=== PATIENT | male | born 1955 | race Caucasian/White ===

== ENCOUNTER → 2016-07-30 | Outpatient (REF) | payer OTHER ==
[~2016-07-30] MED LIST: ATOR1TAB19 PO; AUGM875T27 PO; BACITAB3 PO; CLOP75TA2 PO; DOXY25SU PO; GLUC500T PO; LANTINJ4 SC; LEVA500T PO; LEVA750T PO; LISI10TA4 PO; MILKSUS PO; PERC5TAB6 PO; PERCOCET PO; PRIL40CA PO; SENO8.6T10 PO; SILV50CR TOP; TYLE325T5 PO; [UNRECOGNIZED DRUG - REMARK]
== END ==
LOC: M LAB REF 14:57
PROVIDERS: ATTEND Podiatrist
DX: E11.42 Type 2 diabetes mellitus with diabetic polyneuropathy (principal)

== ENCOUNTER → 2018-08-27 | Outpatient (REF) | payer OTHER, MEDICAID ==
[~2018-08-27] MED LIST changes: +AMLO10TA5 PO; -AUGM875T27 PO; +AUGM875T28 PO; +BACITAB PO; -BACITAB3 PO; +D 1010004 PO; +INSULANT SC; +LEVA1TAB2 PO; +LEVA25SO PO; -LEVA500T PO; -LEVA750T PO; +LEVA750T7 PO; +LISI-538 PO; +METF10004 PO; +METO1TAB7 PO; +MILK120011 PO; -MILKSUS PO; +PERC5TAB12 PO; -PERC5TAB6 PO; +PLAV1TAB2 PO; +RANI1SYP PO
== END ==
LOC: M LAB REF 15:50
PROVIDERS: ATTEND Podiatrist
DX: L03.119 Cellulitis of unspecified part of limb (principal)

== ENCOUNTER → 2018-08-28 | Outpatient (CLI) | payer OTHER ==
[2018-08-28 10:07] LABS: BASO % 0.3 % (0.0-1.0); EOS # 0.2 10^3/uL (0.0-0.50); EOS % 1.5 % (0.0-3.0); HEMATOCRIT 36.4 % (42.0-52.0); HEMOGLOBIN 12.5 g/dl (13.5-17.5); LYMPH # 1.4 10^3/uL (1.5-4.5); LYMPH % 12.3 % (24.0-44.0); MEAN CORPUSCULAR HEMOGLOBIN 29.8 pg (27.0-33.0); MEAN CORPUSCULAR HGB CONC 34.3 g/dl (32.0-36.5); MEAN CORPUSCULAR VOLUME 86.7 fl (80.0-96.0); MONO # 1.1 10^3/uL (0.0-0.8); MONO % 9.1 % (0.0-5.0); NEUTROPHILS # 8.7 10^3/uL (1.8-7.7); NEUTROPHILS % 75.8 % (36.0-66.0); PLATELET COUNT, AUTOMATED 511 10^3/uL (150-450); WHITE BLOOD COUNT 11.5 10^3/uL (4.0-10.0)
[2018-08-28 10:42] LABS: ALBUMIN 2.9 GM/DL (3.2-5.2); ALT/SGPT 26 U/L (12-78); BILIRUBIN,TOTAL 0.6 MG/DL (0.2-1.0); BLOOD UREA NITROGEN 12 MG/DL (7-18); CARBON DIOXIDE LEVEL 25 MEQ/L (21-32); CHLORIDE LEVEL 100 MEQ/L (98-107); GLOMERULAR FILTRATION RATE > 60.0 (>49); GLUCOSE, FASTING 101 MG/DL (70-100); POTASSIUM SERUM 4.7 MEQ/L (3.5-5.1); SODIUM LEVEL 133 MEQ/L (136-145); TOTAL PROTEIN 8.2 GM/DL (6.4-8.2)
--- NOTE | 2018-08-29 08:35 | ECGEPIP ---
Stationary ECG Study 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
== END ==
LOC: M LAB 09:22
PROVIDERS: ATTEND Podiatrist
DX: Z01.818 Encounter for other preprocedural examination (principal); M79.671 Pain in right foot

== ENCOUNTER 2018-08-29 11:07 | Day surgery (SDC) | payer OTHER ==
[~2018-08-29] VITALS: Ht 180.3 cm; Wt 102.1 kg
[2018-08-29] MEDS ORDERED: LR 1,000 ML IV ONE (11:15)
[2018-08-29] MEDS ORDERED: METOPROLOL SUCC *XL* 25MG TAB (TopROL *XL*) PO ONE (14:00)
[2018-08-29] MEDS ORDERED: TOBRAMYCIN SULF 1.2 GM VIAL As Ordered ONE (14:26)
[2018-08-29] MEDS ORDERED: BUPIVACAINE HCL 0.5% 10 ML VIAL As Ordered ONE (14:27)
[2018-08-29] MEDS ORDERED: GENTAMICIN SULF INJ 80MG/2ML VIAL (J1580) As Ordered ONE (14:27)
[2018-08-29] MEDS ORDERED: LIDOCAINE 2% MDV 20 ML VIAL As Ordered ONE (14:27)
[2018-08-29] MEDS ORDERED: MIDAZOLAM INJ 2 MG/2 ML VIAL (J2250) As Ordered ONE (14:57)
[2018-08-29] MEDS ORDERED: fentaNYL 100 MCG/2 ML INJECTION (J3010) As Ordered ONE (14:57)
[2018-08-29] MEDS ORDERED: PROPOFOL 200 MG/20 ML VIAL As Ordered ONE (14:57)
[2018-08-29] MEDS ORDERED: PERCOCET 5MG/325MG TAB PO PRN (16:00)
[2018-08-29] MEDS ORDERED: METOCLOPRAMIDE INJ 10MG/2ML VIAL (J2765) IV PRN (16:00)
[2018-08-29] MEDS ORDERED: LR 1,000 ML IV SCH (16:00)
[2018-08-29] MEDS ORDERED: fentaNYL 100 MCG/2 ML INJECTION (J3010) IV PRN (16:00)
[2018-08-29] MEDS ORDERED: AMPICILLIN SOD/SULBACTAM SOD 3 GM in D5W MINI-BAG PLUS 100 ML IV ONE (16:00)
[2018-08-29] MEDS ORDERED: ONDANSETRON 4MG/2ML VIAL (J2405) IV PRN (16:00)
[2018-08-29 17:35] VITALS: BP 194/92
[2018-08-29 17:53] VITALS: BP 173/82
[2018-08-29] MEDS ORDERED: LISINOPRIL 40 MG TAB PO ONE (18:00)
[2018-08-29] MEDS ORDERED: ACETAMINOPHEN TAB 650MG DOSE (2X325MG) PO PRN (18:00)
[2018-08-29] MEDS ORDERED: amLODIPine 10 MG TAB PO ONE (18:00)
--- NOTE | 2018-08-29 18:43 | REP ---
Right foot series: Three views obtained portably. History: Toe amputated. Comparison right foot radiographs are from January 05, 2014. Findings: The great toe has been previously amputated across the metatarsal in the interval since the 2013 study of the second digit has been amputated at the level of the distal metatarsal. There are radiopaque nodules in the adjacent soft tissues and presumably antibiotic delivery device. There is extensive erosive change and radiolucency with cortical disruption at the base of the proximal phalanx of the third toe and in the adjacent distal third metatarsal consistent with osteomyelitis. There is diffuse forefoot swelling. Vascular calcification is noted. Heel spurring is noted. There is an intramedullary irina in the distal tibia. Impression: Status post amputation of the first two digits with evidence of osteomyelitis with bone destruction in the 3rd proximal phalanx and 3rd distal metatarsal. Electronically Signed by Casey Dodge MD 08/30/2018 09:19 A
[2018-08-29 20:54] VITALS: BP 163/78
[2018-08-29] MEDS ORDERED: ATORVASTATIN 10 MG TAB PO SCH (21:00)
[2018-08-30 06:00] VITALS: BP 133/72
[2018-08-30 06:22] VITALS: BP 133/72
[2018-08-30] MEDS ORDERED: amLODIPine 10 MG TAB PO SCH (07:00)
[2018-08-30] MEDS ORDERED: CLOPIDOGREL 75 MG TAB PO ONE (07:00)
[2018-08-30] MEDS ORDERED: METOPROLOL SUCC (TopROL XL) 50MG **XL** TAB PO ONE (07:00)
[2018-08-30] MEDS ORDERED: metFORMIN (GLUCOPHAGE) 1000 MG TABLET PO ONE (07:00)
--- NOTE | 2018-09-01 16:24 | RO ---
DATE OF PROCEDURE: 08/29/2018 PREOPERATIVE DIAGNOSIS: Osteomyelitis second metatarsal right foot. POSTOPERATIVE DIAGNOSIS: Osteomyelitis second metatarsal right foot. PROCEDURE PERFORMED: Second right amputation right foot with insertion of tobramycin impregnated beads. SURGEON: Shai Cantu DPM TELEGRAPH REPEATER TECHNICIAN: None. ANESTHESIA: HEMOSTASIS: None. ESTIMATED BLOOD LOSS: Less than 10 mL. IMPLANTS UTILIZED: Eight 5 mm tobramycin impregnated beads. DRAINS UTILIZED: Half inch iodoform gauze. DESCRIPTION OF OPERATION: On 08/29/2018, this 62-year-old male was taken from his hospital room to the operating room and placed on the operating table in a supine position. Following the induction of intravenous (IV) sedation and local and regional anesthesia, the right lower extremity was prepped and draped in the usual aseptic manner. Sterile draping is completed and the following procedure was performed. SECOND RIGHT AMPUTATION RIGHT FOOT: Attention was directed to the patient's right foot where there was noted to be an ulcer on the plantar surface of the foot, which extends to bone. Review of x-rays revealed fragmentation of the bone. Therefore, the following procedure was performed the second right amputation. An incision was made on the distal end of the foot starting where a previous cicatrix was placed from the first ray amputation. This was extended onto the base of the 2nd toe in elliptical fashion and it was carried straight to bone. The toe was disarticulated and the toe was removed. Utilizing a metatarsal elevator, the metatarsal was freed. The second metatarsal was then cut just slightly longer than the first and in a dorsal distal to proximal plantar orientation and the second metatarsal head was removed and sent to mycobacteriology for aerobic and anaerobic evaluation. All bleeders as encountered were electrocoagulated. The wound was flushed with 3 liters of dilute gentamicin solution. Evaluation of the plantar surface of the ulcer revealed some necrotic tissue, which was then debrided in elliptical fashion. This was not closed to allow drainage. Eight 5 mm tobramycin beads were then placed into the wound and the wound was closed with #2-0 nylon in a simple interrupted and horizontal mattress type fashion. Half-inch iodoform gauze was placed through the plantar ulcer and a dressing was applied consisting of Adaptic, 4 x 4's, and Kerlix and ABDs. Coban was then placed over the foot. The patient having apparently tolerated the surgical procedure well was sent from the operating room (OR) to the recovery room. The patient states that it was late in the day, his is admitted in the hospital and he has no way of taking care of himself for getting home tonight. He was advised to be held for monitoring and can be released in the morning. Orders were written for his postoperative medications. His questions were answered.
== END 2018-08-30 10:00 | disposition home or self-care (01) ==
LOC: M SDC 11:07 → M MS4PR 17:30 → M SDC 08-30 10:00
PROVIDERS: ATTEND Podiatrist
DX: M86.171 Other acute osteomyelitis, right ankle and foot (principal); E11.621 Type 2 diabetes mellitus with foot ulcer; L97.512 Non-pressure chronic ulcer of other part of right foot with fat layer exposed; E11.42 Type 2 diabetes mellitus with diabetic polyneuropathy; M79.674 Pain in right toe(s); L97.212 Non-pressure chronic ulcer of right calf with fat layer exposed; L97.514 Non-pressure chronic ulcer of other part of right foot with necrosis of bone; Z79.4 Long term (current) use of insulin; Z79.84 Long term (current) use of oral hypoglycemic drugs; I10 Essential (primary) hypertension; Z79.899 Other long term (current) drug therapy; E78.5 Hyperlipidemia, unspecified; K21.9 Gastro-esophageal reflux disease without esophagitis; F17.220 Nicotine dependence, chewing tobacco, uncomplicated
CPT/HCPCS: 28820; 73630; 87070; 87075; 87186; 88304; J1580; J2250; J3010

== ENCOUNTER 2018-10-01 08:17 | Day surgery (SDC) | payer OTHER ==
[~2018-10-01] VITALS: Ht 180.3 cm; Wt 108.9 kg
[~2018-10-01 08:17] MED LIST changes: +AMPICILLIN SOD/SULBACTAM SOD 1.5 GM in D5W 50 ML IV ONE; +LR 1,000 ML IV SCH
[2018-10-01] MEDS ORDERED: PROPOFOL 200 MG/20 ML VIAL As Ordered ONE ×2 (08:48→10:49)
[2018-10-01] MEDS ORDERED: LIDOCAINE 2% INJ 100 MG/5 ML SDV (FOR ANES.) As Ordered ONE (08:48)
[2018-10-01] MEDS ORDERED: ONDANSETRON 4MG/2ML VIAL (J2405) As Ordered ONE (08:49)
[2018-10-01] MEDS ORDERED: fentaNYL 100 MCG/2 ML INJECTION (J3010) As Ordered ONE (08:49)
[2018-10-01] MEDS ORDERED: MIDAZOLAM INJ 2 MG/2 ML VIAL (J2250) As Ordered ONE (08:49)
[2018-10-01] MEDS ORDERED: KETAMINE HCL 200 MG/20 ML VIAL As Ordered ONE (08:50)
[2018-10-01 09:04] LABS: BASO % 0.6 % (0.0-1.0); EOS # 0.1 10^3/uL (0.0-0.50); EOS % 1.7 % (0.0-3.0); HEMOGLOBIN 12.6 g/dl (13.5-17.5); LYMPH # 1.3 10^3/uL (1.5-4.5); LYMPH % 18.1 % (24.0-44.0); MEAN CORPUSCULAR HEMOGLOBIN 29.5 pg (27.0-33.0); MEAN CORPUSCULAR HGB CONC 34.1 g/dl (32.0-36.5); MEAN CORPUSCULAR VOLUME 86.7 fl (80.0-96.0); MONO # 0.8 10^3/uL (0.0-0.8); MONO % 10.6 % (0.0-5.0); NEUTROPHILS # 4.9 10^3/uL (1.8-7.7); NEUTROPHILS % 68.6 % (36.0-66.0); PLATELET COUNT, AUTOMATED 256 10^3/uL (150-450); RED BLOOD COUNT 4.27 10^6/uL (4.30-6.10); WHITE BLOOD COUNT 7.2 10^3/uL (4.0-10.0)
[2018-10-01 09:17] LABS: ERYTHROCYTE SEDIMENTATION RATE 36 mm/hr (0-20)
[2018-10-01] MEDS ORDERED: GENTAMICIN SULF INJ 80MG/2ML VIAL (J1580) As Ordered ONE (09:35)
[2018-10-01] MEDS ORDERED: BUPIVACAINE HCL 0.5% 30 ML VIAL As Ordered ONE (09:36)
[2018-10-01] MEDS ORDERED: LIDOCAINE 2% MDV 20 ML VIAL As Ordered ONE (09:37)
[2018-10-01] MEDS ORDERED: TOBRAMYCIN SULF 1.2 GM VIAL As Ordered ONE (09:37)
[2018-10-01 09:38] LABS: ALBUMIN 3.9 GM/DL (3.2-5.2); ALT/SGPT 24 U/L (12-78); BILIRUBIN,TOTAL 0.9 MG/DL (0.2-1.0); BLOOD UREA NITROGEN 13 MG/DL (7-18); CALCIUM LEVEL 8.3 MG/DL (8.8-10.2); CARBON DIOXIDE LEVEL 24 MEQ/L (21-32); CHLORIDE LEVEL 96 MEQ/L (98-107); CREATININE FOR GFR 0.83 MG/DL (0.70-1.30); GLOMERULAR FILTRATION RATE > 60.0 (>49); GLUCOSE, FASTING 125 MG/DL (70-100); POTASSIUM SERUM 4.6 MEQ/L (3.5-5.1); SODIUM LEVEL 127 MEQ/L (136-145); TOTAL PROTEIN 8.3 GM/DL (6.4-8.2)
[2018-10-01 12:00] VITALS: BP 150/77
--- NOTE | 2018-10-01 12:33 | REP ---
PORTABLE RIGHT FOOT, THREE VIEWS: HISTORY: Postop. COMPARISON: 08/29/2018 The patient is status post previous amputation of the 1st and 2nd digits and heads of the 1st and 2nd metatarsals. The patient is status post new amputation of the 3rd through 5th digits and heads of the 3rd through 5th the tarsals. Radiopaque pledgets and interval tevin are present in the soft tissue. IMPRESSION: Postoperative change as described above. Electronically Signed by Dalton Torres MD 10/01/2018 12:35 P
--- NOTE | 2018-10-02 11:55 | RO ---
DATE OF PROCEDURE: 10/01/2018 PREPROCEDURE DIAGNOSIS: Osteomyelitis second metatarsal and third metatarsal phalangeal joint right foot. POSTPROCEDURE DIAGNOSIS: Osteomyelitis second metatarsal and third metatarsal phalangeal joint right foot. PROCEDURE: SURGEON: Dr. Shai Cantu DPM MACHINE SETTER SUPERVISOR: None. ANESTHESIA: Local MAC. IRRIGATION: Dilute gentamicin solution 3 liters with low pressure pulse lavage system. HEMOSTASIS: None. ESTIMATED BLOOD LOSS: 100 mL. IMPLANTS UTILIZED: Fifteen 5 mm Tobramycin impregnated beads. DRAIN: TLS drain. COMPLICATIONS: None. DESCRIPTION OF OPERATION: On 10/01/2018, this 62-year old diabetic male was taken from his hospital room to the operating room and placed on the operating table in supine position. Following induction of IV sedation, local and regional anesthesia, the right lower extremity was prepped and draped in the usual aseptic manner. Attention was directed to the patient's right foot where there was noted to be an ulceration on the plantar surface of the foot inferior to the second metatarsal as well as a ulceration with a swollen third toe. X-rays reveal osteomyelitis of the second metatarsal and third metatarsal phalangeal joint. The following procedure was performed: TRANSMETATARSAL AMPUTATION RIGHT FOOT WITH INSERTION OF TLS DRAIN AND FIFTEEN 5 MM TOBRAMYCIN IMPREGNATED BEADS: A transverse incision was then placed across the dorsal aspect of the foot across the base of the digits exiting laterally onto the fifth metatarsal area extending inferiorly at the proximal web spaces across the digits 5-3. With dorsal traction, the extensor tendons were cut with dorsal flexion. The flexor tendons were cut and the toe was disarticulated from the third, fourth and fifth metatarsal phalangeal joints. Utilizing Bovie and #3-0 Monocryl, all bleeders as encountered were electrocoagulated or ligated. Attention was directed to the second metatarsal and utilizing a power saw, an osteotomy was performed where the bone was firm, the distal necrotic bone was left and approximately 1 cm of bone was excised with care taken to take more bone on the plantar surface than the dorsal. The metatarsals were then staggered down across the third, fourth and fifth metatarsal heads. The third metatarsal head was sent to pathology for aerobic and anaerobic cultures. Utilizing Bovie, any remaining bleeders were electrocoagulated. The wound was flushed with 3 liters of dilute gentamicin solution with low pressure pulse lavage system. The plantar ulcer was fully excised submetatarsal two. Fifteen 5 mm vancomycin beads and TLS drain was then placed into the wound and the wound was stapled close in the usual fashion. Good coaptation was noted of the wound and was under minimal tension. Compressive dressing was then applied consisting of 4x4, 4x4 splint, ABD and Coban. TLS drain was functioning satisfactorily. Patient apparently having tolerated the procedure well was taken from the operating room to the recovery room for further monitoring by the anesthesia department. Patient will continue on Augmentin 875 mg one by mouth twice daily. He may start taking his Plavix in 8 hours. His questions were answered.
== END 2018-10-01 13:30 | disposition home or self-care (01) ==
LOC: M SDC 08:17
PROVIDERS: ATTEND Podiatrist
DX: M86.171 Other acute osteomyelitis, right ankle and foot (principal); E11.621 Type 2 diabetes mellitus with foot ulcer; L03.125 Acute lymphangitis of right lower limb; L97.514 Non-pressure chronic ulcer of other part of right foot with necrosis of bone; Z79.4 Long term (current) use of insulin; I10 Essential (primary) hypertension; E11.42 Type 2 diabetes mellitus with diabetic polyneuropathy; M79.674 Pain in right toe(s); Z79.899 Other long term (current) drug therapy
CPT/HCPCS: 28805; 36415; 73630; 80053; 85025; 85652; 87070; 87075; 87186; 88304; 88311; C1713; J1580; J2250; J2405; J3010

== ENCOUNTER 2019-04-01 14:57 | Inpatient (IN) | payer OTHER ==
[~2019-04-01] VITALS: Ht 180.3 cm; Wt 101.8 kg
[~2019-04-01 14:57] MED LIST changes: -AMPICILLIN SOD/SULBACTAM SOD 1.5 GM in D5W 50 ML IV ONE; -LR 1,000 ML IV SCH; -SILV50CR TOP; +THER1CRE16 TOP
[2019-04-01] MEDS ORDERED: NS 1,000 ML IV ONE ×2 (16:00→17:15)
[2019-04-01] MEDS ORDERED: PIPERACILLIN/TAZOBACTAM SOD 3.375 GM in D5W MINI-BAG PLUS 50 ML IV ONE (16:00)
[2019-04-01] MEDS ORDERED: VANCOMYCIN HCL 1,000 MG, VIAL MATE ADAPTER 1 EACH in D5W 250 ML IV ONE (16:00)
[2019-04-01 16:31] LABS: BASO % 0.2 % (0.0-1.0); EOS # 0.1 10^3/uL (0.0-0.5); EOS % 0.7 % (0.0-3.0); HEMATOCRIT 34.7 % (42.0-52.0); HEMOGLOBIN 11.8 g/dl (13.5-17.5); LYMPH # 1.2 10^3/uL (1.5-5.0); LYMPH % 10.1 % (24.0-44.0); MEAN CORPUSCULAR HEMOGLOBIN 30.2 pg (27.0-33.0); MEAN CORPUSCULAR VOLUME 88.7 fl (80.0-96.0); MONO # 0.9 10^3/uL (0.0-0.8); MONO % 7.7 % (0.0-5.0); NEUTROPHILS # 9.8 10^3/uL (1.5-8.5); NEUTROPHILS % 80.2 % (36.0-66.0); PLATELET COUNT, AUTOMATED 596 10^3/uL (150-450); RED BLOOD COUNT 3.91 10^6/uL (4.30-6.10); WHITE BLOOD COUNT 12.2 10^3/uL (4.0-10.0)
[2019-04-01] MEDS ORDERED: DEXTROSE 50% 50 ML SYRINGE IV PRN (16:45)
[2019-04-01] MEDS ORDERED: GLUCAGON FOR INJ 1 MG VIAL (J1610) SC PRN (16:45)
[2019-04-01] MEDS ORDERED: GLUCOSE 4 GM CHEW TABLET PO PRN (16:45)
[2019-04-01 16:53] LABS: ALBUMIN 2.3 GM/DL (3.2-5.2); ALT/SGPT 49 U/L (12-78); BILIRUBIN,DIRECT 0.3 MG/DL (0.0-0.2); BILIRUBIN,TOTAL 0.5 MG/DL (0.2-1.0); BLOOD UREA NITROGEN 20 MG/DL (7-18); CALCIUM LEVEL 8.7 MG/DL (8.8-10.2); CARBON DIOXIDE LEVEL 27 MEQ/L (21-32); CHLORIDE LEVEL 97 MEQ/L (98-107); GLOMERULAR FILTRATION RATE > 60.0 (>49); GLUCOSE, FASTING 165 MG/DL (70-100); POTASSIUM SERUM 4.4 MEQ/L (3.5-5.1); SODIUM LEVEL 134 MEQ/L (136-145); TOTAL PROTEIN 7.7 GM/DL (6.4-8.2)
[2019-04-01] MEDS ORDERED: ATOR1TAB21 PO (16:53)
[2019-04-01] MEDS ORDERED: METO1TAB33 PO (16:53)
[2019-04-01] MEDS ORDERED: PT COMMENT (16:55)
[2019-04-01 16:59] LABS: ERYTHROCYTE SEDIMENTATION RATE 108 mm/hr (0-20)
[2019-04-01] MEDS ORDERED: ACETAMINOPHEN TAB 650MG DOSE (2X325MG) PO ONE (17:00)
[2019-04-01] MEDS ORDERED: ACETAMINOPHEN TAB 650MG DOSE (2X325MG) PO PRN (17:15)
[2019-04-01 17:29] LABS: INR 1.23; PROTHROMBIN TIME 15.2 SECONDS (11.8-14.0)
[2019-04-01 18:18] LABS: HEMOGLOBIN A1c 7.2 %
[2019-04-01] MEDS: HumaLOG INSULIN (NovoLOG) PER UNIT SC SCH ×2 (18:18→21:00)
--- NOTE | 2019-04-01 18:27 | HPE ---
DATE OF ADMISSION: 04/01/2019 PRIMARY CARE PROVIDER: Former[facility]amed [facility] LATHE TURNER: Dr. Cantu ATTENDING PHYSICIAN: Hospitalist group HISTORY: Ayad Mccray is a 63-year-old who is being admitted after seeing Dr. Cantu today, having been found to have a deeply infected right diabetic foot with suspected osteomyelitis, foul drainage, erythema, swelling and pain in a foot that has already had forefoot amputations. His past history shows diabetes with peripheral arterial disease and diabetic neuropathy. He has hyperlipidemia, hypertensive heart disease, history of osteomyelitis of both feet. He is undergone transmetatarsal amputation to both feet in the past by Dr. Cantu. SOCIAL HISTORY: He is from [place], [place]. He was in the for 13 years. He is disabled due to his toe amputations. 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 He does not smoke. He says he previously drank about 4-6 [place] a day but has not had any alcohol in three weeks. FAMILY HISTORY: Noncontributory. REVIEW OF SYSTEMS: No fever or chills. He has a cough. It is worse when he lies down. It has been present for three weeks. It is occasionally productive. He is not short of breath with it. No chest pain. No polyuria or polydipsia. MEDICATIONS: - Lantus insulin 20 units daily - Plavix 75 mg daily - metformin 1000 mg twice a day - atorvastatin 10 mg daily - vitamin D - Toprol XL 50 mg at bedtime ALLERGIES: None known. PHYSICAL EXAMINATION: VITAL SIGNS: Per flow sheet. He is alert, conversant, in no distress. Pupils are equal, round, and reactive to light. Tympanic membranes (TMs) and oropharynx benign. NECK: No masses. No jugular venous distention (JVD). LUNGS: Scattered rhonchi, frequent cough. HEART: Regular rate and rhythm, 1/6 systolic ejection murmur. ABDOMEN: Soft, nontender. No masses. EXTREMITIES: 1+ peripheral edema. Bilateral transmetatarsal amputations. Right foot laterally has purulent drainage, foul smelling with erythema and swelling. Pulses are not palpable in what is remaining of the foot bilaterally. LABORATORY DATA: White count 12.2, hemoglobin 11.8, platelets 569. Sodium 134 potassium 4.4, BUN 20, creatinine 1.0, glucose 165. C-reactive protein 13.7. IMPRESSION: 1. Diabetic foot ulcer. The patient will be admitted to a medical bed. Consult Dr. Cantu for podiatric care. MRI of the foot has been ordered through the emergency room. We will start Zosyn and vancomycin for suspected osteomyelitis. Clinical pharmacology has been consulted. Sliding scale insulin with fingerstick blood sugar. Consistent-carbohydrate diet ordered. Hemoglobin A1c ordered. 2. Cough. We will get the chest x-ray and proceed from there. It has been present for about three weeks and not resolving. 3. Hypertensive heart disease. Continue metoprolol. Reduce the dose of amlodipine until we see what his pressures are like in the hospital. For his edema, he might benefit from a thiazide diuretic rather than a higher dose of amlodipine. 4. Peripheral arterial disease. I am holding his Plavix until we see whether he is going for surgery. 5. History of alcohol use. He claims no alcohol in the last three weeks. He has not previously had any withdrawal symptoms so I am not putting him on any kind of a withdrawal protocol. 6. Deep vein thrombosis (DVT) prophylaxis with Lovenox has been ordered.
[2019-04-01] MEDS ORDERED: PROHANCE 279.3MG/ML 5ML VIAL (A9576) As Ordered ONE (18:34)
[2019-04-01] MEDS ORDERED: PROHANCE 279.3MG/ML 15ML VIAL (A9576) As Ordered ONE (18:35)
--- NOTE | 2019-04-01 19:16 | REP ---
Right foot: Four views. History: Rule out osteo. Pain and swelling. Erythema. Comparison right foot radiographs are postoperative images from October 01, 2018. Findings: The patient is status post transmetatarsal forefoot amputation of all five digits. There is a irregular soft tissue swelling. There is fairly extensive soft tissue emphysema at the stump as well as along the lateral aspect of the midfoot, hindfoot. 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 Plantar and Achilles calcaneal spurring is noted. There is an intramedullary irina with pins in the distal tibia. Impression: Dorsal lateral subcutaneous emphysema at the level of the midfoot and hindfoot as well as in the forefoot. No acute bony erosive change. I cannot exclude gas-forming soft tissue infection. Electronically Signed by Casey Dodge MD 04/02/2019 07:52 A
[2019-04-01 20:36] VITALS: BP 132/67
--- NOTE | 2019-04-01 20:38 | PHACANCOPD ---
PHARMACY VANCOMYCIN DOSING Pt Demographics Demographics Patient Age:63 , Weight:101.800 , Gender: male Adjusted Body Weight Events Past 24 Hours Events Past 24 Hours: NO: Dialysis, Diuretic Therapy, Change in CrCl, Fever, Elevation in WBC, Pending Diagnostics, Pending Procedures, Other Vancomycin Vancomycin indication: RT FOOR SUSPECTED OSTEOMYELITIS Vancomycin Target Ranges: 10-20 mcg/ml Vancomycin Load Y/N: No Load Dose Date Time Vancomycin Load Dose: Date: Time: Vancomycin Dose Date: 04/01/19. Current Vancomycin Dose: [1GM GIVEN IN ER @16:30. CONTINUE VANCO 1GM IV Q12H STARTING @21:00] Intermittent Dosing?: No Labs Labs Laboratory Tests 04/01/19 16:01 Red Blood Count 3.91 L, Mean Corpuscular Volume 88.7, Mean Corpuscular Hemoglobin 30.2, Mean Corpuscular Hemoglobin Concent 34.0, Red Cell Distribution Width 12.1, Neutrophils (%) (Auto) 80.2 H, Lymphocytes (%) (Auto) 10.1 L, Monocytes (%) (Auto) 7.7 H, Eosinophils (%) (Auto) 0.7, Basophils (%) (Auto) 0.2, Neutrophils # (Auto) 9.8 H, Lymphocytes # (Auto) 1.2 L, Monocytes # (Auto) 0.9 H, Eosinophils # (Auto) 0.1, Basophils # (Auto) 0.0 Micro Microbiology 04/01/19 Blood Culture, Received Pending 04/01/19 Blood Culture, Received Pending 04/01/19 Anaerobic Culture, Received Pending 04/01/19 Gram Stain, Received Pending 04/01/19 Wound Culture, Received Pending Creatinine Clearance Date:04/01/19. Creatinine Clearance: [>80]. Assessment and Plan Maintaining Current Dose?: Yes Reason for dose change: No Dose Change Pharmacist Note Pharmacist Note Date: 04/01/19. PharmD note: ZOSYN 3.375GM IV Q6H INITIATED IN THE ER FOLLOWED BY 1GM VANCO x1 DOSE IV ALSO @16:30 WE WILL CONTINUE WITH VANCO 1GM IV Q12H SAS ALREADY ORDERED BY DR RANGEL AND OBTAIN A PRIMARY VANCO TROUGH WHEN HE IS AT [facility] Apr 01, 2019 20:38
[2019-04-01 22:00] VITALS: BP 135/69
[2019-04-01] MEDS: VANCOMYCIN HCL 1,000 MG, VIAL MATE ADAPTER 1 EACH in D5W 250 ML IV SCH (22:08)
--- NOTE | 2019-04-01 22:21 | REPVR ---
EXAM: MR Right Lower Extremity Without and With Contrast, Foot EXAM DATE/TIME: 04/01/2019 6:42 PM CLINICAL HISTORY: 63 years old, male; Right; Prior surgery; Surgery date: 6+ months; Patient HX: Pain and cellulitis in RT foot, PT has a HX of peripheral vascular deficit prior amputation of all toes TECHNIQUE: Imaging protocol: MR of the Right foot without and with intravenous contrast. Contrast material: PROHANCE; Contrast volume: 20 ml; Contrast route: 22G ANGIO; COMPARISON: CR - Foot, complete RIGHT 04/01/2019 4:11:53 PM FINDINGS: Redemonstrated are operative changes of transmetatarsal amputation of all the rays. There is moderate enhancing subcutaneous edema about the distal leg, ankle and remaining foot, with areas of skin thickening. An irregular shaped area of peripherally enhancing subcutaneous heterogeneous, partially fluid intensity signal along the dorsolateral aspect from the level of the cuboid through the remaining fifth metatarsal measures approximately 4.6 x 1.4 cm in the axial plane and up to 6.8 cm proximal to distal, suggestive of abscess. Multiple dark signal foci within this appear to relate to gas on the radiographs. There is also fistulization of this collection to the skin laterally at the level of the cuboid. In addition, there is irregularly-shaped peripherally enhancing fluid along the deep aspect of the extensor hallucis and digitorum longus tendons at the levels of the lateral and medial cuneiforms and proximal second through fourth metatarsals. Maximum dimensions are approximately 3.4 x 1.0 cm in the axial plane and up to 4.9 cm craniocaudad. The tendons themselves appear intact, aside from the fifth extensor digitorum longus tendon, which may have been resected. The peroneus brevis tendon is thickened and increased in signal near its insertion. The other visualized tendons appear unremarkable, as does the plantar fascia. There is considerable marrow edema involving the cuboid, lateral and middle cuneiforms and second through fifth metatarsals. The distal aspect of these tarsal bones and the entirety of the metatarsals demonstrate decreased T1 signal as well as irregular areas of cortical disruption, compatible with osteomyelitis. Some marrow edema with lesser decreased T1 signal and no definite cortical destruction in the medial cuneiform could be reactive or related to osteomyelitis. Lesser patchy marrow edema in the talus distally likely reactive. The medial cuneiform is again fused in an osseous fashion to the remaining first metatarsal. The joint spaces are normally aligned, and there are similar degenerative changes. A small effusion involves the calcaneocuboid joint. IMPRESSION: 1. Postoperative foot demonstrate moderate enhancing subcutaneous edema about the distal leg, ankle and remaining foot, with areas of skin thickening, compatible with the given history of cellulitis. 2. Irregularly-shaped peripherally enhancing subcutaneous collection along the dorsolateral aspect of the foot, suggestive of abscess. Multiple dark signal foci within this appear to relate to gas on radiographs of the same day. 3. Additional peripherally enhancing fluid along the deep aspect of the extensor hallucis and digitorum longus tendons at the levels of the lateral and medial cuneiforms and second through fourth metatarsals, could reflect abscess or tenosynovitis. 4. 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 5. Osteomyelitis involving the distal aspects of the cuboid, lateral and medial cuneiforms and second through fifth metatarsals. 6. Reactive edema or osteomyelitis involving the medial cuneiform. 7. Small effusion of the calcaneocuboid joint, with infection not excluded. Electronically signed by: Nicholas Katz On 04/01/2019 22:20:29 PM
[2019-04-01] MEDS: PIPERACILLIN/TAZOBACTAM SOD 3.375 GM in D5W MINI-BAG PLUS 50 ML IV SCH (23:43)
[2019-04-02] VITALS (8 sets, daily range): BP systolic 130–151; BP diastolic 70–79
[2019-04-02] MEDS: PIPERACILLIN/TAZOBACTAM SOD 3.375 GM in D5W MINI-BAG PLUS 50 ML IV SCH ×4 (05:56→23:51)
[2019-04-02 06:07] LABS: BASO % 0.5 % (0.0-1.0); EOS # 0.1 10^3/uL (0.0-0.5); EOS % 1.6 % (0.0-3.0); HEMATOCRIT 32.1 % (42.0-52.0); HEMOGLOBIN 10.9 g/dl (13.5-17.5); LYMPH # 1.3 10^3/uL (1.5-5.0); LYMPH % 14.5 % (24.0-44.0); MEAN CORPUSCULAR HEMOGLOBIN 30.4 pg (27.0-33.0); MEAN CORPUSCULAR VOLUME 89.4 fl (80.0-96.0); MONO # 0.8 10^3/uL (0.0-0.8); MONO % 9.5 % (0.0-5.0); NEUTROPHILS # 6.4 10^3/uL (1.5-8.5); NEUTROPHILS % 72.9 % (36.0-66.0); PLATELET COUNT, AUTOMATED 497 10^3/uL (150-450); RED BLOOD COUNT 3.59 10^6/uL (4.30-6.10); WHITE BLOOD COUNT 8.7 10^3/uL (4.0-10.0)
[2019-04-02 06:24] LABS: BLOOD UREA NITROGEN 15 MG/DL (7-18); CALCIUM LEVEL 8.6 MG/DL (8.8-10.2); CARBON DIOXIDE LEVEL 24 MEQ/L (21-32); CHLORIDE LEVEL 103 MEQ/L (98-107); CREATININE FOR GFR 0.89 MG/DL (0.70-1.30); GLOMERULAR FILTRATION RATE > 60.0 (>49); GLUCOSE, FASTING 179 MG/DL (70-100); POTASSIUM SERUM 3.6 MEQ/L (3.5-5.1); SODIUM LEVEL 136 MEQ/L (136-145)
--- NOTE | 2019-04-02 07:24 | REP ---
REASON: Cough. COMPARISON: 04/24/2015 Mild cardiomegaly may have developed since the last exam. The lung duffy are clear and unchanged. The pleural angles are again seen to be sharp. No change in the osseous structures. Mild spinal degenerative changes status quo. IMPRESSION: Possible cardiomegaly, however, it should be stated the frontal view was obtained using AP technique, which magnifies the cardiac silhouette. Electronically Signed by Sergio Sow DO 04/02/2019 03:14 P
[2019-04-02] MEDS: HumaLOG INSULIN (NovoLOG) PER UNIT SC SCH ×4 (08:37→21:00)
[2019-04-02] MEDS: LEVEMIR (INSULIN DETEMIR) 1 UNITS/0.01ML SC SCH (08:38)
[2019-04-02] MEDS: amLODIPine 5 MG TAB PO SCH (08:38)
[2019-04-02] MEDS: VANCOMYCIN HCL 1,000 MG, VIAL MATE ADAPTER 1 EACH in D5W 250 ML IV SCH ×2 (08:38→21:18)
[2019-04-02] MEDS: ENOXAPARIN 40 MG/0.4 ML SYRINGE (J1650) SC SCH (08:39)
[2019-04-02] MEDS: METOPROLOL SUCC (TopROL XL) 50MG **XL** TAB PO SCH (08:39)
[2019-04-02] MEDS: ATORVASTATIN 10 MG TAB PO SCH (08:39)
[2019-04-02] MEDS ORDERED: dexameTHASONE 4 MG/ML 1ML VIAL (J1100) As Ordered ONE (13:36)
[2019-04-02] MEDS ORDERED: BUPIVACAINE HCL 0.5% 30 ML VIAL As Ordered ONE ×2 (13:36→13:37)
[2019-04-02] MEDS ORDERED: BACITRACIN PWD 50,000 UNITS VIAL As Ordered ONE (13:36)
[2019-04-02] MEDS ORDERED: LIDOCAINE 2% MDV 20 ML VIAL As Ordered ONE (13:36)
[2019-04-02] MEDS ORDERED: NEOSPORIN GU IRRIG 20 ML VIAL As Ordered ONE (13:37)
[2019-04-02] MEDS ORDERED: GENTAMICIN SULF INJ 80MG/2ML VIAL (J1580) As Ordered ONE ×2 (13:39→19:38)
--- NOTE | 2019-04-02 13:46 | IPNPDOC ---
Text Note Date of Service The patient was seen on 04/02/19. NOTE SUBJECTIVE: Complains of right foot redness with discharge though no pain. de nies any chest pain or sob , denies any abdominal pain nausea or vomiting . Will be going to OR today. PHYSICAL EXAMINATION: VITAL SIGNS: As below GENERAL: He is alert, conversant, in no distress. HEENT: Pupils are equal, round, and reactive to light. Tympanic membranes (TMs) and oropharynx benign. NECK: No masses. No jugular venous distention (JVD). LUNGS: Scattered rhonchi, frequent cough. HEART: Regular rate and rhythm, 1/6 systolic ejection murmur. ABDOMEN: Soft, nontender. No masses. EXTREMITIES: 2+ peripheral edema. Bilateral transmetatarsal amputations. Right foot laterally has purulent drainage, foul smelling with erythema and swelling. There are maggots coming out of the opening in the stump Pulses are not palpable in what is remaining of the foot bilaterally. NEURO: No focal neuro deficits. Skin: In both the lower extremities there is lymphedematous changes in the skin with stasis dermatitis, ecxematous changes, foul smelling drainage with erythema in the right foot stump extending laterally with area of skin. LABORATORY DATA: Reviewed as below. ASSESSMENT AND PLAN: 63-year-old male with PMH of DM, PAD, Neuropathy, dyslipidemia, Hypertension and hypertensive heart disease , H/o Osteomyelitis in both foot and has bilateral transmetatarsal amputations who was admitted after seeing having been found to have a deeply infected right diabetic foot with suspected osteomyelitis, foul drainage, erythema, swelling and pain in a foot that has already had forefoot amputations. Diabetic foot ulcer with cellulitis, abscess and maggots. Possible osteomyelitis. Consulted Dr. Cantu for podiatric care. Planned for OR today MRI of the foot shows OM with cellulitis, abscess, tenosynovitis, tendinopathy. Zosyn and vancomycin Diabetes Carb consistent diet, lispro as per sliding scale Levemir in the Am. FS ac and HS. Dyslipidemia continue statin Cough. We will get the chest x-ray and proceed from there. It has been present for about three weeks and not resolving. Hypertension with Hypertensive heart disease. Continue metoprolol. amlodipine , diuretic Peripheral arterial disease. I am holding his Plavix until after surgery. History of alcohol use. He claims no alcohol in the last three weeks. He has not previously had any withdrawal symptoms so I am not putting him on any kind of a withdrawal protocol. Deep vein thrombosis (DVT) prophylaxis with Lovenox has been ordered. VS,Fishbone, I+O VS, Fishbone, I+O Laboratory Tests 04/01/19 16:01 Red Blood Count 3.91 L, Mean Corpuscular Volume 88.7, Mean Corpuscular Hemoglobin 30.2, Mean Corpuscular Hemoglobin Concent 34.0, Red Cell Distribution Width 12.1, Neutrophils (%) (Auto) 80.2 H, Lymphocytes (%) (Auto) 10.1 L, Monocytes (%) (Auto) 7.7 H, Eosinophils (%) (Auto) 0.7, Basophils (%) (Auto) 0.2, Neutrophils # (Auto) 9.8 H, Lymphocytes # (Auto) 1.2 L, Monocytes # (Auto) 0.9 H, Eosinophils # (Auto) 0.1, Basophils # (Auto) 0.0 04/02/19 05:38 Red Blood Count 3.59 L, Mean Corpuscular Volume 89.4, Mean Corpuscular Hemoglobin 30.4, Mean Corpuscular Hemoglobin Concent 34.0, Red Cell Distribution Width 12.1, Neutrophils (%) (Auto) 72.9 H, Lymphocytes (%) (Auto) 14.5 L, Monocytes (%) (Auto) 9.5 H, Eosinophils (%) (Auto) 1.6, Basophils (%) (Auto) 0.5, Neutrophils # (Auto) 6.4, Lymphocytes # (Auto) 1.3 L, Monocytes # (Auto) 0.8, Eosinophils # (Auto) 0.1, Basophils # (Auto) 0.0, Calcium Level 8.6 L Vital Signs Date Time Temp Pulse Resp B/P (MAP) Pulse Ox O2 Delivery O2 Flow Rate FiO2 04/02/19 06:00 98.1 78 18 151/79 (103) 97 04/01/19 20:16 Room Air I&O- Last 24 Hours up to 6 AM 04/02/19 06:00 Intake Total 2920 ml Output Total 500 ml Balance 2420 ml MAHESH MEDELLIN MD Apr 02, 2019 08:02
--- NOTE | 2019-04-02 13:52 | IPN ---
DATE OF VISIT: 04/02/2019 CHIEF COMPLAINT: 63-year-old male seen for evaluation of an infected wound in his right foot. The patient states that he was cutting hay back around Labor Day and he noticed that he cut or injured his right foot. Since he has neuropathy he is not exactly sure. States that it subsequently got red and swollen and he started to feel ill. He noticed the other day that there was some maggots in the wound. He called our office. Presented initially to our office but we sent him back to the hospital for admission, intravenous (IV) antibiotics, and subsequent testing. He is seen today for evaluation. PAST MEDICAL HISTORY: 1. Peripheral artery disease. 2. Diabetes mellitus. 3. Diabetic neuropathy. 4. Hyperlipidemia. 5. Hypertensive heart disease. 6. Status post transmetatarsal amputation bilateral. MEDICATIONS: - Lantus insulin 20 units daily - Plavix 75 mg daily - metformin 1000 mg twice a day - atorvastatin 10 mg daily - vitamin D - Toprol XL 50 mg at bedtime The patient's laboratory studies were reviewed. His white count 12.2, today is 8.7. His ESR yesterday was 108. C-reactive protein 13.7. MRI was reviewed revealing abscess formation along the dorsal and bilateral aspect of his right foot, questionable osteomyelitis of the cuboid. Possible osteomyelitis of the lateral medial cuneiforms. However, in light of the patient's diabetic neuropathy and surgery with transmetatarsal amputations it is difficult to assess if this is bone change with edema or diabetic reaction. The patient's pedal pulses are nonpalpable. He has considerable edema of the right lower extremity from venous insufficiency. ASSESSMENT: Abscess formation right foot. We will check in the operating room (OR) if any of this abscess penetrates the bone. We are discussing incision and drainage with pulse lavage and packing of the wound. Ordered a stat duplex scan to rule out deep venous thrombosis. Informed consent was obtained and signed by the patient. The patient is nothing by mouth after breakfast. His questions are answered. He is scheduled for surgery today in the afternoon.
--- NOTE | 2019-04-02 14:30 | REP ---
Right lower extremity Duplex Doppler venous ultrasound: Real time compression and duplex Doppler interrogation of the right lower extremity deep venous system is performed. The right common femoral, superficial femoral and popliteal veins are fully compressible with transducer pressure and demonstrate normal spontaneous and phasic flow, without evidence of deep venous thrombosis. Impression: No evidence of deep venous thrombosis of the right lower extremity femoral popliteal venous system. Electronically Signed by Braulio Gómez MD 04/02/2019 02:22 P
[2019-04-02] MEDS ORDERED: ONDANSETRON 4MG/2ML VIAL (J2405) As Ordered ONE (19:26)
[2019-04-02] MEDS ORDERED: LIDOCAINE 2% INJ 100 MG/5 ML SDV (FOR ANES.) As Ordered ONE (19:26)
[2019-04-02] MEDS ORDERED: PROPOFOL 200 MG/20 ML VIAL As Ordered ONE ×2 (19:26→19:52)
[2019-04-02] MEDS ORDERED: fentaNYL 100 MCG/2 ML INJECTION (J3010) As Ordered ONE (19:26)
[2019-04-02] MEDS ORDERED: MIDAZOLAM INJ 2 MG/2 ML VIAL (J2250) As Ordered ONE (19:51)
[2019-04-02] MEDS ORDERED: METOCLOPRAMIDE INJ 10MG/2ML VIAL (J2765) IV PRN ×2 (20:45→22:00)
[2019-04-02] MEDS: LR 1,000 ML IV SCH ×2 (20:45→21:17)
[2019-04-02] MEDS ORDERED: MEPERIDINE INJ 25 MG/ML VIAL (J2175) IV PRN ×2 (20:45→22:00)
[2019-04-02] MEDS ORDERED: fentaNYL 100 MCG/2 ML INJECTION (J3010) IV PRN ×2 (20:45→22:00)
[2019-04-02] MEDS ORDERED: ONDANSETRON 4MG/2ML VIAL (J2405) IV PRN ×2 (20:45→22:00)
[2019-04-02] MEDS ORDERED: PERCOCET 5MG/325MG TAB PO PRN ×2 (20:45→22:00)
--- NOTE | 2019-04-02 21:23 | PHACANCOPD ---
PHARMACY VANCOMYCIN DOSING Pt Demographics Demographics Patient Age:63 , Weight:101.800 , Gender: male Adjusted Body Weight Events Past 24 Hours Events Past 24 Hours: NO: Dialysis, Diuretic Therapy, Change in CrCl, Fever, Elevation in WBC, Pending Diagnostics, Pending Procedures, Other Vancomycin Vancomycin indication: RT FOOR SUSPECTED OSTEOMYELITIS Vancomycin Target Ranges: 10-20 mcg/ml Vancomycin Load Y/N: No Load Dose Date Time Vancomycin Load Dose: Date: Time: Vancomycin Dose Date: 04/02/19. Current Vancomycin Dose: [1000mg q8h] Intermittent Dosing?: No Labs Labs Item Value Date Time White Blood Count 8.7 10^3/uL 04/02/19537 Glomerular Filtration Rate > 60.0 04/02/19537 Creatinine 0.89 MG/DL 04/02/19537 Blood Urea Nitrogen 15 MG/DL 04/02/19537 Vancomycin Level Trough 9.4 UG/ML L 04/02/192024 Micro Microbiology 04/01/19 Blood Culture - Preliminary, Resulted No growth after 24 hours . All specim... 04/01/19 Blood Culture - Preliminary, Resulted No growth after 24 hours . All specim... 04/02/19 Gram Stain, Received Pending 04/02/19 Wound Culture, Received Pending 04/02/19 Anaerobic Culture, Received Pending 04/02/19 Gram Stain, Received Pending 04/02/19 Surgical Biopsy Culture, Received Pending 04/02/19 Anaerobic Culture, Received Pending 04/01/19 Anaerobic Culture, Received Pending 04/01/19 Gram Stain - Final, Resulted 04/01/19 Wound Culture, Resulted Pending Creatinine Clearance Date:04/02/19. Creatinine Clearance: [>80]. Pending Labs Trough 09-13 @1300 Assessment and Plan Maintaining Current Dose?: No Reason for dose change: Trough too low Pharmacist Note Pharmacist Note Date: 04/02/19. PharmD note: Trough of 9.4 is below target range. Dosing increased to 1000mg q8h. Will continue to monitor and make adjustments as needed. LELE TALBOT [facility]ARM[facility] Apr 02, 2019 21:22
[2019-04-02] MEDS ORDERED: LR 1,000 ML IV SCH (22:00)
[2019-04-03] VITALS (8 sets, daily range): BP systolic 123–152; BP diastolic 61–85
[2019-04-03] MEDS: PIPERACILLIN/TAZOBACTAM SOD 3.375 GM in D5W MINI-BAG PLUS 50 ML IV SCH ×3 (05:20→17:25)
[2019-04-03] MEDS: VANCOMYCIN HCL 1,000 MG, VIAL MATE ADAPTER 1 EACH in D5W 250 ML IV SCH ×3 (06:28→21:49)
--- NOTE | 2019-04-03 08:03 | REP ---
Right foot series: Three views: History: Abscess right foot, three view status post resection fifth metatarsal. Comparison study is from April 01, 2019. Findings: A the left fifth metatarsal has been resected at the mid shaft level. Previous transmetatarsal amputations have been performed of the other digits. There is soft tissue swelling and overlying dressing. There are a few bubbles of soft tissue gas in the dorsal soft tissues of the midfoot unchanged. Vascular calcification and heel spurs are again noted. There is a orthopedic pin device in the distal tibia. Electronically Signed by Casey Dodge MD 04/03/2019 09:15 A
[2019-04-03 08:14] LABS: BASO % 0.4 % (0.0-1.0); EOS # 0.2 10^3/uL (0.0-0.5); EOS % 1.6 % (0.0-3.0); HEMATOCRIT 31.2 % (42.0-52.0); HEMOGLOBIN 10.4 g/dl (13.5-17.5); LYMPH # 1.2 10^3/uL (1.5-5.0); LYMPH % 10.8 % (24.0-44.0); MEAN CORPUSCULAR HEMOGLOBIN 29.2 pg (27.0-33.0); MEAN CORPUSCULAR HGB CONC 33.3 g/dl (32.0-36.5); MEAN CORPUSCULAR VOLUME 87.6 fl (80.0-96.0); MONO # 0.7 10^3/uL (0.0-0.8); MONO % 6.8 % (0.0-5.0); NEUTROPHILS # 8.7 10^3/uL (1.5-8.5); NEUTROPHILS % 79.7 % (36.0-66.0); PLATELET COUNT, AUTOMATED 522 10^3/uL (150-450); RED BLOOD COUNT 3.56 10^6/uL (4.30-6.10)
[2019-04-03 08:28] LABS: BLOOD UREA NITROGEN 6 MG/DL (7-18); C REACTIVE PROTEIN QUANTITATIV 8.33 MG/DL (0.00-0.30); CALCIUM LEVEL 8.5 MG/DL (8.8-10.2); CARBON DIOXIDE LEVEL 25 MEQ/L (21-32); CHLORIDE LEVEL 99 MEQ/L (98-107); CREATININE FOR GFR 0.86 MG/DL (0.70-1.30); GLOMERULAR FILTRATION RATE > 60.0 (>49); GLUCOSE, FASTING 162 MG/DL (70-100); POTASSIUM SERUM 3.8 MEQ/L (3.5-5.1); SODIUM LEVEL 133 MEQ/L (136-145)
[2019-04-03] MEDS: LEVEMIR (INSULIN DETEMIR) 1 UNITS/0.01ML SC SCH (08:51)
[2019-04-03] MEDS: HumaLOG INSULIN (NovoLOG) PER UNIT SC SCH ×4 (08:51→20:34)
[2019-04-03] MEDS: ENOXAPARIN 40 MG/0.4 ML SYRINGE (J1650) SC SCH (08:51)
[2019-04-03] MEDS: METOPROLOL SUCC (TopROL XL) 50MG **XL** TAB PO SCH (08:52)
[2019-04-03] MEDS: ATORVASTATIN 10 MG TAB PO SCH (08:52)
[2019-04-03] MEDS: amLODIPine 5 MG TAB PO SCH (08:53)
[2019-04-03] MEDS ORDERED: PERCOCET 5MG/325MG TAB PO ONE (10:15)
[2019-04-03] MEDS: LACTIC ACID 12% LOTION 225 GM BTL TOP SCH ×2 (13:47→20:46)
[2019-04-04] VITALS: BP 136/70
[2019-04-04] MEDS: PIPERACILLIN/TAZOBACTAM SOD 3.375 GM in D5W MINI-BAG PLUS 50 ML IV SCH ×5 (00:22→22:07)
[2019-04-04 04:00] VITALS: BP 141/69
[2019-04-04] MEDS: VANCOMYCIN HCL 1,000 MG, VIAL MATE ADAPTER 1 EACH in D5W 250 ML IV SCH ×2 (06:15→17:48)
[2019-04-04 06:29] LABS: BASO % 0.3 % (0.0-1.0); EOS # 0.2 10^3/uL (0.0-0.5); EOS % 2.3 % (0.0-3.0); HEMATOCRIT 30.5 % (42.0-52.0); HEMOGLOBIN 10.4 g/dl (13.5-17.5); LYMPH % 12.4 % (24.0-44.0); MEAN CORPUSCULAR HEMOGLOBIN 31.2 pg (27.0-33.0); MEAN CORPUSCULAR HGB CONC 34.1 g/dl (32.0-36.5); MEAN CORPUSCULAR VOLUME 91.6 fl (80.0-96.0); MONO # 0.7 10^3/uL (0.0-0.8); MONO % 8.8 % (0.0-5.0); NEUTROPHILS # 6.1 10^3/uL (1.5-8.5); NEUTROPHILS % 75.6 % (36.0-66.0); PLATELET COUNT, AUTOMATED 424 10^3/uL (150-450); RED BLOOD COUNT 3.33 10^6/uL (4.30-6.10)
[2019-04-04 07:00] LABS: BLOOD UREA NITROGEN 12 MG/DL (7-18); CALCIUM LEVEL 8.2 MG/DL (8.8-10.2); CARBON DIOXIDE LEVEL 25 MEQ/L (21-32); CHLORIDE LEVEL 105 MEQ/L (98-107); CREATININE FOR GFR 1.07 MG/DL (0.70-1.30); GLOMERULAR FILTRATION RATE > 60.0 (>49); GLUCOSE, FASTING 243 MG/DL (70-100); POTASSIUM SERUM 3.7 MEQ/L (3.5-5.1); SODIUM LEVEL 139 MEQ/L (136-145)
[2019-04-04] MEDS: HumaLOG INSULIN (NovoLOG) PER UNIT SC SCH ×4 (07:30→21:00)
--- NOTE | 2019-04-04 08:46 | IPNPDOC ---
Text Note Date of Service The patient was seen on 04/04/19. NOTE SUBJECTIVE: Complains of constipation, No bowel movements for several days. No fever or chills, No chest pain so sob, no abdominal pain , no nausea or vomiting. Does not complain of any pain in the foot. PHYSICAL EXAMINATION: VITAL SIGNS: As below GENERAL: He is alert, conversant, in no distress. HEENT: Pupils are equal, round, and reactive to light. Tympanic membranes (TMs) and oropharynx benign. NECK: No masses. No jugular venous distention (JVD). LUNGS: Scattered rhonchi, frequent cough. HEART: Regular rate and rhythm, 1/6 systolic ejection murmur. ABDOMEN: Soft, nontender. No masses. EXTREMITIES: 2+ peripheral edema. Bilateral transmetatarsal amputations. Right foot laterally has purulent drainage, foul smelling with erythema and swelling. There are maggots coming out of the opening in the stump Pulses are not palpable in what is remaining of the foot bilaterally. NEURO: No focal neuro deficits. Skin: In both the lower extremities there is lymphedematous changes in the skin with stasis dermatitis, ecxematous changes, foul smelling drainage with erythem a in the right foot stump extending laterally with area of skin. LABORATORY DATA: Reviewed as below. ASSESSMENT AND PLAN: 63-year-old male with PMH of DM, PAD, Neuropathy, dyslipidemia, Hypertension and hypertensive heart disease , H/o Osteomyelitis in both foot and has bilateral transmetatarsal amputations who was admitted after seeing having been found to have a deeply infected right diabetic foot with suspected osteomyelitis, foul drainage, erythema, swelling and pain in a foot that has already had forefoot amputations. Diabetic foot ulcer with cellulitis, abscess and maggots and osteomyelitis. MRI of the foot shows OM with cellulitis, abscess, tenosynovitis, tendinopathy. S/p Incision and drainage on 04/02/19 Planned for secondary closure next week. Zosyn and vancomycin Wound culture growing Enterobacter cloacae Diabetes Carb consistent diet, lispro as per sliding scale Levemir in the Am. FS ac and HS. Dyslipidemia continue statin Cough. We will get the chest x-ray and proceed from there. It has been present for about three weeks and not resolving. Hypertension with Hypertensive heart disease. Continue metoprolol. amlodipine , diuretic Peripheral arterial disease. I am holding his Plavix until after surgery. History of alcohol use. He claims no alcohol in the last three weeks. He has not previously had any withdrawal symptoms so I am not putting him on any kind of a withdrawal protocol. Constipation will start bowel regimen. Deep vein thrombosis (DVT) prophylaxis with Lovenox has been ordered. VS,Fishbone, I+O VS, Fishbone, I+O Laboratory Tests 04/04/19 06:02 Red Blood Count 3.33 L, Mean Corpuscular Volume 91.6, Mean Corpuscular Hemoglobin 31.2, Mean Corpuscular Hemoglobin Concent 34.1, Red Cell Distribution Width 12.2, Neutrophils (%) (Auto) 75.6 H, Lymphocytes (%) (Auto) 12.4 L, Monocytes (%) (Auto) 8.8 H, Eosinophils (%) (Auto) 2.3, Basophils (%) (Auto) 0.3, Neutrophils # (Auto) 6.1, Lymphocytes # (Auto) 1.0 L, Monocytes # (Auto) 0.7, Eosinophils # (Auto) 0.2, Basophils # (Auto) 0.0 04/04/19 06:03 Calcium Level 8.2 L Vital Signs Date Time Temp Pulse Resp B/P (MAP) Pulse Ox O2 Delivery O2 Flow Rate FiO2 04/04/19 04:00 97.8 67 18 141/69 (93) 96 04/01/19 20:16 Room Air I&O- Last 24 Hours up to 6 AM 04/04/19 06:00 Intake Total 2220 ml Output Total 2450 ml Balance -230 ml MAHESH MEDELLIN MD Apr 04, 2019 08:42
[2019-04-04] MEDS: ATORVASTATIN 10 MG TAB PO SCH (09:20)
[2019-04-04] MEDS: ENOXAPARIN 40 MG/0.4 ML SYRINGE (J1650) SC SCH (09:22)
[2019-04-04] MEDS: METOPROLOL SUCC (TopROL XL) 50MG **XL** TAB PO SCH (09:22)
[2019-04-04] MEDS: amLODIPine 5 MG TAB PO SCH (09:22)
[2019-04-04] MEDS: MOM 30ML SUSPENSION UDC PO SCH (09:22)
[2019-04-04] MEDS: LACTIC ACID 12% LOTION 225 GM BTL TOP SCH ×2 (09:22→21:21)
[2019-04-04] MEDS: SENOKOT S TAB PO SCH ×2 (09:22→21:20)
[2019-04-04] MEDS: LEVEMIR (INSULIN DETEMIR) 1 UNITS/0.01ML SC SCH (09:23)
[2019-04-04 10:00] VITALS: BP 162/80
[2019-04-04 10:25] LABS: VANCOMYCIN LEVEL TROUGH 20.4 UG/ML (10.0-20.0)
--- NOTE | 2019-04-04 10:36 | CR ---
DATE OF CONSULTATION: 04/03/2019 CONSULTING PHYSICIAN: Dr. Cantu REASON FOR CONSULTATION: Antibiotic management for right foot abscess. CHIEF COMPLAINT: This is a 63-year-old male with a pertinent history of diabetes and transmetatarsal amputations bilaterally who presented to the emergency room (ER) two days prior for worsening right foot infection. The patient was advised by his glass products inspector, Dr. Cantu, to come to the hospital for further evaluation. He states around Labor Day weekend he was ambulating outside in the [place], and he felt a sudden sharp pain of his lateral right foot. He admits after he took off his shoe that he had worsening swelling of his right lower extremity. He admits to having a history of neuropathy in his lower extremity, but did feel sharp pain in the right foot. He noticed that the foot lesion got worse, it became erythematous and swollen. He subsequently started experiencing systemic symptoms, such as fatigue, malaise, subjective fevers, which he attributed to having possibly the flu. He did not get any antibiotics and did not have further evaluation until he saw the glass products inspector the day of presentation to the ER. While he was admitted, he was started on intravenous (IV) vancomycin and IV Zosyn. He had a right foot incision and drainage (I and D) and amputation of the 5th metatarsal done by Dr. Cantu on 04/02/2019, evening. PAST MEDICAL HISTORY: 1. Peripheral artery disease. 2. Diabetes mellitus. 3. Diabetic neuropathy. 4. Hyperlipidemia. 5. Hypertensive heart disease. PAST SURGICAL HISTORY: Status post metatarsal amputation bilaterally. SOCIAL HISTORY: The patient is from [place], [place]. He was in the for 13 years but currently disabled due to toe amputation. [place], and he is very active. 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 FAMILY HISTORY: Noncontributory. HOME MEDICATIONS: - Lantus 20 units daily - Plavix 75 mg daily - metformin 100 mg twice a day - atorvastatin 10 mg daily - vitamin D - Toprol XL 50 mg at bedtime - amlodipine 5 mg daily - metformin 1000 mg twice a day ALLERGIES: No known drug allergies. REVIEW OF SYSTEMS: Constitutional: Denies weight change. Admits to subjective fevers. No chills. Slight night sweats. Admits to fatigue and malaise. HEENT: Denies hearing changes, ear pain, nasal congestion, sinus pain, sore throat, rhinorrhea, difficulty swallowing, vision changes. Cardiovascular: Denies shortness of breath, chest pain, dyspnea on exertion. Respiratory: Denies cough, sputum production, wheezing, rhonchi or dyspnea. Gastrointestinal: Denies nausea, vomiting, diarrhea, constipation, abdominal discomfort. Musculoskeletal: Admits to right lower foot pain, worsening lower extremity edema, right worse than left. Denies back pain, neck pain. Integumentary: Admits to right lower leg erythema and tenderness. Neurologic: Denies weakness, numbness, but admits to lower extremity neuropathy. Denies dizziness. Endocrine: Denies polyuria, polydipsia. Admits to a history of diabetes, currently on insulin and rate controlled. PHYSICAL EXAMINATION: Vital signs: Temperature 99.2, pulse 72, respirations 18, blood pressure 131/69 (89), pulse oximetry 93% on room air. General: This is a very pleasant 63-year-old male laying comfortably in the bed who does not appear in acute distress. HEENT: Atraumatic, normocephalic. Pupils equal, round, and reactive. Poor dentition. No lymphadenopathy. No jugular venous distention (JVD) noted. Lungs: Clear to auscultation bilaterally. No audible wheezing, rhonchi or rales. Abdomen: Obese abdomen, slightly distended, nontender to palpation with positive bowel sounds in all four quadrants. No hepatomegaly or splenomegaly. No skin changes noted. Lower Extremities: Bilateral lymphedema noted with chronic skin changes appreciated on the shins consistent with stasis dermatitis. Right leg edema 3+, left leg edema 2+ all the way up to knees. Bilateral metatarsal amputation. Right foot lateral open wound measuring about 12.5 x 2 cm x 2 cm in depth. Right peroneal tendons can be appreciated. No purulent discharge. Tender to touch. Small superficial ulcer stage 1 appreciated near the opening of the wound measuring about 1 x 2 cm in size, foul-smelling. The wound was then re-wrapped with packing and gauze. LABORATORIES: WBC 11.0, hemoglobin 10.4, hematocrit 31.2, platelets 522, ESR 108. Chemistries: Sodium 133, potassium 3.8, chloride 99, carbon dioxide 25, anion gap 9, BUN 6, creatinine 0.86, glucose 162, A1c 7.2, CRP came down from 13.7 on admission to 8.33. Microbiology: Blood cultures times two - no growth. Wound culture of the right foot positive for Enterobacter cloacae complex and Staphylococcus species coag negative, sensitivities currently pending. Bone biopsy anaerobes pending of the 5th metatarsal. IMAGING: Right foot MRI on 04/01/2019 shows postoperative foot enhancing subcutaneous edema of the distal leg, ankle and remaining foot, area of skin thickening and compatible with history of cellulitis. Irregularly-shaped peripherally enhancing subcutaneous collection along the dorsolateral aspect of the foot suggesting abscess. Additional peripherally enhancing fluid along the deep aspect of the extensor hallucis and digitorum longus tendons at the level of the lateral and medial cuneiform and 2nd through 4th metatarsals suggestive of abscess or tenosynovitis. Peroneus longus tendinopathy nears its insertion. Osteomyelitis of the distal aspect of the cuboid lateral and medial cuneiforms 2nd through the 5th metatarsal. Reactive edema or osteomyelitis involving the medial cuneiform, small effusion of the calcaneocuboid joint with infection not excluded. ASSESSMENT AND PLAN: This is a 63-year-old male with a pertinent history of diabetes and bilateral transmetatarsal amputation who presented to the emergency room for worsening right foot pain. The patient had a deep right foot abscess and went to the operating room on 04/02/2019, evening, by Dr. Cantu. He had an incision and drainage of the lateral and dorsal right foot with debridement of the 5th metatarsal for possible osteomyelitis pending bone cultures. He is currently on IV antibiotics, vancomycin and Zosyn started on 04/01/2019. RECOMMENDATIONS: Include: Continue vancomycin and Zosyn pending the results of the bone culture and wound cultures. We will de-escalate antibiotics appropriately pending results. To help with the lower extremity edema and skin changes, recommend applying Lac-Hydrin 12% lotion bilaterally on the shins and to wrap the lower extremity with TUBIGRIP We will monitor the patient for clinical improvement. RONI
--- NOTE | 2019-04-04 11:34 | PHACANCOPD ---
PHARMACY VANCOMYCIN DOSING Pt Demographics Demographics Patient Age:63 , Weight:101.800 , Gender: male Adjusted Body Weight Events Past 24 Hours Events Past 24 Hours: YES: Change in CrCl; NO: Dialysis, Diuretic Therapy, Fever, Elevation in WBC, Pending Diagnostics, Pending Procedures, Other Vancomycin Vancomycin indication: RT FOOR SUSPECTED OSTEOMYELITIS Vancomycin Target Ranges: 10-20 mcg/ml Vancomycin Load Y/N: No Load Dose Date Time Vancomycin Load Dose: Date: Time: Vancomycin Dose Date: 04/04/19. Current Vancomycin Dose: [1g IV q12h @18] Date: 04/02/19. Current Vancomycin Dose: [1000mg q8h] Intermittent Dosing?: No Labs Labs Item Value Date Time Vancomycin Level Trough 20.4 UG/ML H 04/04/19 0603 Vancomycin Level Trough 15.4 UG/ML 04/03/19 1314 Creatinine 0.89 MG/DL 04/02/19 0538 Creatinine 0.86 MG/DL 04/03/19 0756 Creatinine 1.07 MG/DL 04/04/19 0603 White Blood Count 11.0 10^3/uL H 04/03/19 0756 White Blood Count 8.0 10^3/uL 04/04/19 0602 Micro Microbiology 04/01/19 Blood Culture - Preliminary, Resulted No Growth after 48 hours. All Specime... 04/01/19 Blood Culture - Preliminary, Resulted No Growth after 48 hours. All Specime... 04/02/19 Gram Stain - Final, Resulted 04/02/19 Wound Culture - Preliminary, Resulted Enterobacter Cloacae Complex Streptococcus Group G 04/02/19 Anaerobic Culture, Resulted Pending 04/02/19 Gram Stain - Final, Resulted 04/02/19 Surgical Biopsy Culture, Resulted Pending 04/02/19 Anaerobic Culture, Resulted Pending 04/01/19 Anaerobic Culture - Final, Complete 04/01/19 Gram Stain - Final, Resulted 04/01/19 Wound Culture - Preliminary, Resulted Enterobacter Cloacae Complex Creatinine Clearance Date:04/04/19. Creatinine Clearance: [~75 ml/min]. Date:04/02/19. Creatinine Clearance: [>80]. Assessment and Plan Maintaining Current Dose?: No Reason for dose change: Change in serum Cr, Trough too high Pharmacist Note Pharmacist Note Date: 04/04/19. Pharmacist note: SCr was acutely elevated today, repeat vancomycin trough drawn minutes before the dose was due was high at 20.4. I have reduced his dosing back to 1g IV q12h to start tonight at 18:00. I will continue to monitor renal function and make adjustments as necessary. Isma aGrvin Pharm.D. Apr 04, 2019 11:34
[2019-04-04] MEDS: SILVER SULFADIAZINE 1% CR 50 GM JAR TOP SCH ×2 (11:43→21:21)
[2019-04-04] MEDS: MORPHINE 4 MG/ML 1ML VIAL/SYRINGE (J2270) IV PRN ×2 (12:19→21:53)
[2019-04-04 14:00] VITALS: BP 139/74
[2019-04-04 18:00] VITALS: BP 166/84
[2019-04-04 22:00] VITALS: BP 161/82
[2019-04-05 02:00] VITALS: BP 158/81
[2019-04-05] MEDS: PIPERACILLIN/TAZOBACTAM SOD 3.375 GM in D5W MINI-BAG PLUS 50 ML IV SCH ×4 (04:37→22:18)
[2019-04-05] MEDS: VANCOMYCIN HCL 1,000 MG, VIAL MATE ADAPTER 1 EACH in D5W 250 ML IV SCH (05:42)
[2019-04-05 06:00] VITALS: BP 156/80
[2019-04-05 06:12] LABS: BASO % 0.3 % (0.0-1.0); EOS # 0.2 10^3/uL (0.0-0.5); EOS % 2.2 % (0.0-3.0); HEMATOCRIT 31.5 % (42.0-52.0); HEMOGLOBIN 10.4 g/dl (13.5-17.5); LYMPH # 1.2 10^3/uL (1.5-5.0); MEAN CORPUSCULAR HEMOGLOBIN 30.2 pg (27.0-33.0); MEAN CORPUSCULAR VOLUME 91.6 fl (80.0-96.0); MONO # 0.7 10^3/uL (0.0-0.8); NEUTROPHILS # 7.2 10^3/uL (1.5-8.5); NEUTROPHILS % 76.9 % (36.0-66.0); PLATELET COUNT, AUTOMATED 481 10^3/uL (150-450); RED BLOOD COUNT 3.44 10^6/uL (4.30-6.10); WHITE BLOOD COUNT 9.4 10^3/uL (4.0-10.0)
[2019-04-05 06:29] LABS: CALCIUM LEVEL 8.6 MG/DL (8.8-10.2); CREATININE FOR GFR 1.3 MG/DL (0.70-1.30); GLOMERULAR FILTRATION RATE 59.4 (>49); POTASSIUM SERUM 3.9 MEQ/L (3.5-5.1)
[2019-04-05] MEDS: HumaLOG INSULIN (NovoLOG) PER UNIT SC SCH ×4 (07:30→20:32)
[2019-04-05] MEDS: MOM 30ML SUSPENSION UDC PO SCH (09:38)
[2019-04-05] MEDS: CLOPIDOGREL 75 MG TAB PO SCH (09:39)
[2019-04-05] MEDS: SENOKOT S TAB PO SCH ×2 (09:40→20:33)
[2019-04-05] MEDS: amLODIPine 5 MG TAB PO SCH (09:41)
[2019-04-05] MEDS: METOPROLOL SUCC (TopROL XL) 50MG **XL** TAB PO SCH (09:41)
[2019-04-05] MEDS: LEVEMIR (INSULIN DETEMIR) 1 UNITS/0.01ML SC SCH (09:42)
[2019-04-05] MEDS: ENOXAPARIN 40 MG/0.4 ML SYRINGE (J1650) SC SCH (09:42)
[2019-04-05] MEDS: SILVER SULFADIAZINE 1% CR 50 GM JAR TOP SCH ×2 (09:43→22:02)
[2019-04-05] MEDS: LACTIC ACID 12% LOTION 225 GM BTL TOP SCH ×2 (09:43→22:02)
[2019-04-05] MEDS: ATORVASTATIN 10 MG TAB PO SCH (09:45)
[2019-04-05 10:00] VITALS: BP 164/82
[2019-04-05] MEDS ORDERED: MAGNESIUM CITRATE 300 ML BTL PO ONE (10:30)
[2019-04-05] MEDS: MORPHINE 4 MG/ML 1ML VIAL/SYRINGE (J2270) IV PRN (11:40)
[2019-04-05 14:00] VITALS: BP 145/84
[2019-04-05 20:11] VITALS: BP 154/76
[2019-04-06] VITALS (8 sets, daily range): BP systolic 132–164; BP diastolic 67–85
[2019-04-06] MEDS ORDERED: VANCOMYCIN HCL 1,000 MG, VIAL MATE ADAPTER 1 EACH in D5W 250 ML IV SCH ×3
[2019-04-06] MEDS: PIPERACILLIN/TAZOBACTAM SOD 3.375 GM in D5W MINI-BAG PLUS 50 ML IV SCH ×4 (05:53→22:04)
[2019-04-06 06:31] LABS: BASO # 0.1 10^3/uL (0.0-0.2); BASO % 0.7 % (0.0-1.0); EOS # 0.2 10^3/uL (0.0-0.5); EOS % 2.9 % (0.0-3.0); HEMATOCRIT 30.5 % (42.0-52.0); HEMOGLOBIN 10.2 g/dl (13.5-17.5); LYMPH # 1.5 10^3/uL (1.5-5.0); LYMPH % 19.2 % (24.0-44.0); MEAN CORPUSCULAR HGB CONC 33.4 g/dl (32.0-36.5); MEAN CORPUSCULAR VOLUME 89.7 fl (80.0-96.0); MONO # 0.6 10^3/uL (0.0-0.8); MONO % 8.1 % (0.0-5.0); NEUTROPHILS # 5.3 10^3/uL (1.5-8.5); NEUTROPHILS % 68.6 % (36.0-66.0); PLATELET COUNT, AUTOMATED 496 10^3/uL (150-450); WHITE BLOOD COUNT 7.7 10^3/uL (4.0-10.0)
[2019-04-06 06:57] LABS: CALCIUM LEVEL 8.8 MG/DL (8.8-10.2); CREATININE FOR GFR 1.29 MG/DL (0.70-1.30); GLOMERULAR FILTRATION RATE 59.9 (>49); POTASSIUM SERUM 3.8 MEQ/L (3.5-5.1)
--- NOTE | 2019-04-06 07:19 | RO ---
DATE OF PROCEDURE: 04/02/2019 PREPROCEDURE DIAGNOSES: Abscess formation dorsal and lateral space right foot, possible osteomyelitis. POSTPROCEDURE DIAGNOSES: Abscess dorsal, lateral plantar space right foot with osteomyelitis distal aspect fifth metatarsal right foot. PROCEDURE: 1. resection of osteomyelitic bone 5th metatarsal right foot. 2. Incision and drainage of dorsal medial and plantar abscess right foot. SURGEON: Dr. Shai Cantu DPM PROJECT MANAGER ENTERTAINMENT AND MEDIA: None. ANESTHESIA: Local MAC. IRRIGATION: Dilute gentamicin solution 3 liters low pressure pulse lavage systems. DRAINS: 0.5 inch iodoform gauze. ESTIMATED BLOOD LOSS: 30 mL. HEMOSTASIS: None. IMPLANTABLES: None. DESCRIPTION OF OPERATION: On 04/02/2019, this 63-year old male was taken from his hospital room to the operating room and placed on the operating table in supine position. Following induction of IV sedation, local and regional anesthesia, the right lower extremity was prepped and draped in the usual aseptic manner. Attention was directed to the patient's right foot where there was noted to be three small but deep ulcerations on the dorsal, plantar and lateral aspects of the foot. There was noted to be maggots coming from the wound itself. The dorsal plantar ulceration was open from dorsal to plantar with a 6 cm incision. The fifth metatarsal distally was noted to be exposed and had some osseous loss consistent with osteomyelitis. Along a dorsal and lateral position towards the fifth metatarsal insertion of the peroneal brevis tendon was a tunnel which was open from dorsal to plantar measuring 12 cm in length exposing the distal 4 cm of the peroneal brevis tendon, however did not tunnel completely up the sheath in a more dorsal position than where the incision was ended. The area was then debrided of any necrotic tissue and utilizing a pulse lavage system, the maggots as well as purulent material was irrigated prior to this. Aerobic and anaerobic cultures were obtained. Approximately 1 cm of bone was resected from the fifth metatarsal and sent for bone culture aerobic and anaerobically. Then the wound was copiously lavaged. All bleeders as encountered were electrocoagulated. 0.5 inch iodoform gauze was then packed in the wound. A flap of tissue was then gently held shut and then a semicompressive dressing was applied consisting of 4x4, ABD and Kerlix. Patient apparently having tolerated the procedure well was taken from the operating room to the recovery room for further monitoring by the anesthesia department. Patient will stay on antibiotics until his culture becomes available. He is presently on Zosyn and vancomycin. Dr. Egan was consulted to follow the patient. I did discuss with Dr. Egan I would be leaving [facility] over the weekend but will be returning on Saturday morning. RONI
[2019-04-06] MEDS: HumaLOG INSULIN (NovoLOG) PER UNIT SC SCH ×4 (07:30→21:00)
[2019-04-06] MEDS: MOM 30ML SUSPENSION UDC PO SCH (09:00)
[2019-04-06] MEDS: SENOKOT S TAB PO SCH ×2 (09:00→22:04)
[2019-04-06] MEDS: ATORVASTATIN 10 MG TAB PO SCH (09:02)
[2019-04-06] MEDS: amLODIPine 5 MG TAB PO SCH (09:02)
[2019-04-06] MEDS: METOPROLOL SUCC (TopROL XL) 50MG **XL** TAB PO SCH (09:02)
[2019-04-06] MEDS: LACTIC ACID 12% LOTION 225 GM BTL TOP SCH ×2 (09:03→22:04)
[2019-04-06] MEDS: SILVER SULFADIAZINE 1% CR 50 GM JAR TOP SCH (09:03)
--- NOTE | 2019-04-06 13:31 | IPNPDOC ---
Text Note Date of Service The patient was seen on 04/06/19. NOTE SUBJECTIVE: complains of pain in foot only on bearing weight otherwise nopain. No chest pain so sob, no abdominal pain , no nausea or vomiting. Does not complain of any pain in the foot. PHYSICAL EXAMINATION: VITAL SIGNS: As below GENERAL: He is alert, conversant, in no distress. HEENT: Pupils are equal, round, and reactive to light. Tympanic membranes (TMs) and oropharynx benign. NECK: No masses. No jugular venous distention (JVD). LUNGS: Scattered rhonchi, frequent cough. HEART: Regular rate and rhythm, 1/6 systolic ejection murmur. ABDOMEN: Soft, nontender. No masses. EXTREMITIES: 2+ peripheral edema. Bilateral transmetatarsal amputations. Right foot laterally has purulent drainage, foul smelling with erythema and swelling. There are maggots coming out of the opening in the stump Pulses are not palpable in what is remaining of the foot bilaterally. NEURO: No focal neuro deficits. Skin: In both the lower extremities there is lymphedematous changes in the skin with stasis dermatitis, ecxematous changes, foul smelling drainage with erythema in the right foot stump extending laterally with area of skin. LABORATORY DATA: Reviewed as below. ASSESSMENT AND PLAN: 63-year-old male with PMH of DM, PAD, Neuropathy, dyslipidemia, Hypertension and hypertensive heart disease , H/o Osteomyelitis in both foot and has bilateral transmetatarsal amputations who was admitted after seeing having been found to have a deeply infected right diabetic foot with suspected osteomyelitis, foul drainage, erythema, swelling and pain in a foot that has already had forefoot amputations. Diabetic foot ulcer with cellulitis, abscess and maggots and osteomyelitis. MRI of the foot shows OM with cellulitis, abscess, tenosynovitis, tendinopathy. S/p Incision and drainage on 04/02/19 Planned for secondary closure today Zosyn and vancomycin Wound culture with multiple organisms and anareobic cocci Follow ID recommendations. Diabetes Carb consistent diet, lispro as per sliding scale Levemir in the Am. FS ac and HS. Dyslipidemia continue statin Cough. We will get the chest x-ray and proceed from there. It has been present for about three weeks and not resolving. Hypertension with Hypertensive heart disease. Continue metoprolol. amlodipine , diuretic Peripheral arterial disease. on plavix. History of alcohol use. He claims no alcohol in the last three weeks. He has not previously had any withdrawal symptoms so I am not putting him on any kind of a withdrawal protocol. Chronic Constipation will start bowel regimen. Deep vein thrombosis (DVT) prophylaxis with Lovenox has been ordered. VS,Fishbone, I+O VS, Fishbone, I+O Laboratory Tests 04/06/19 06:06 Red Blood Count 3.40 L, Mean Corpuscular Volume 89.7, Mean Corpuscular Hemoglobin 30.0, Mean Corpuscular Hemoglobin Concent 33.4, Red Cell Distribution Width 12.3, Neutrophils (%) (Auto) 68.6 H, Lymphocytes (%) (Auto) 19.2 L, Monocytes (%) (Auto) 8.1 H, Eosinophils (%) (Auto) 2.9, Basophils (%) (Auto) 0.7, Neutrophils # (Auto) 5.3, Lymphocytes # (Auto) 1.5, Monocytes # (Auto) 0.6, Eosinophils # (Auto) 0.2, Basophils # (Auto) 0.1, Calcium Level 8.8 Vital Signs Date Time Temp Pulse Resp B/P (MAP) Pulse Ox O2 Delivery O2 Flow Rate FiO2 04/06/19 10:00 97.4 72 20 143/70 (94) 96 04/01/19 20:16 Room Air I&O- Last 24 Hours up to 6 AM 04/06/19 06:00 Intake Total 4481 ml Output Total 4825 ml Balance -344 ml MAHESH MEDELLIN MD Apr 06, 2019 13:29
--- NOTE | 2019-04-06 13:32 | IPNPDOC ---
Text Note Date of Service The patient was seen on 04/05/19. NOTE SUBJECTIVE: Complains of constipation, No bowel movements for several days. is on bowel regimen. No fever or chills, No chest pain so sob, no abdominal pain , no nausea or vomiting. Does not complain of any pain in the foot except during dressing changes. PHYSICAL EXAMINATION: VITAL SIGNS: As below GENERAL: He is alert, conversant, in no distress. HEENT: Pupils are equal, round, and reactive to light. Tympanic membranes (TMs) and oropharynx benign. NECK: No masses. No jugular venous distention (JVD). LUNGS: Scattered rhonchi, frequent cough. HEART: Regular rate and rhythm, 1/6 systolic ejection murmur. ABDOMEN: Soft, nontender. No masses. EXTREMITIES: 2+ peripheral edema. Bilateral transmetatarsal amputations. Right foot laterally has purulent drainage, foul smelling with erythema and swelling. There are maggots coming out of the opening in the stump Pulses are not palpable in what is remaining of the foot bilaterally. NEURO: No focal neuro deficits. Skin: In both the lower extremities there is lymphedematous changes in the skin with stasis dermatitis, ecxematous changes, foul smelling drainage with erythema in the right foot stump extending laterally with area of skin. LABORATORY DATA: Reviewed as below. ASSESSMENT AND PLAN: 63-year-old male with PMH of DM, PAD, Neuropathy, dyslipidemia, Hypertension and hypertensive heart disease , H/o Osteomyelitis in both foot and has bilateral transmetatarsal amputations who was admitted after seeing having been found to have a deeply infected right diabetic foot with suspected osteomyelitis, foul drainage, erythema, swelling and pain in a foot that has already had forefoot amputations. Diabetic foot ulcer with cellulitis, abscess and maggots and osteomyelitis. MRI of the foot shows OM with cellulitis, abscess, tenosynovitis, tendinopathy. S/p Incision and drainage on 04/02/19. He had an incision and drainage of the lateral and dorsal right foot with rese ction of the 5th metatarsal. He had resection of the 5th metatarsal for possible osteomyelitis pending bone cultures. Planned for secondary closure next week. Continue Zosyn and vancomycin Wound culture growing Enterobacter cloacae and strep agalactiae, anaerobic cultures and bone cultures pending. Diabetes with neuropathy. Carb consistent diet, lispro as per sliding scale Levemir in the Am. FS ac and HS. Sugars acceptable control. Dyslipidemia continue statin Hypertension with Hypertensive heart disease. Continue metoprolol. amlodipine , diuretic Peripheral arterial disease. continue plavix. History of alcohol use. He claims no alcohol in the last three weeks. He has not previously had any withdrawal symptoms so I am not putting him on any kind of a withdrawal protocol. Constipation will start bowel regimen. Deep vein thrombosis (DVT) prophylaxis with Lovenox has been ordered. VS,Fishbone, I+O VS, Fishbone, I+O Laboratory Tests 04/05/19 05:38 Red Blood Count 3.44 L, Mean Corpuscular Volume 91.6, Mean Corpuscular Hemoglobin 30.2, Mean Corpuscular Hemoglobin Concent 33.0, Red Cell Distribution Width 12.3, Neutrophils (%) (Auto) 76.9 H, Lymphocytes (%) (Auto) 13.0 L, Monocytes (%) (Auto) 7.0 H, Eosinophils (%) (Auto) 2.2, Basophils (%) (Auto) 0.3, Neutrophils # (Auto) 7.2, Lymphocytes # (Auto) 1.2 L, Monocytes # (Auto) 0.7, Eosinophils # (Auto) 0.2, Basophils # (Auto) 0.0, Calcium Level 8.6 L Vital Signs Date Time Temp Pulse Resp B/P (MAP) Pulse Ox O2 Delivery O2 Flow Rate FiO2 04/05/19 06:00 97.9 72 20 156/80 (105) 98 04/01/19 20:16 Room Air I&O- Last 24 Hours up to 6 AM 04/05/19 06:00 Intake Total 5630 ml Output Total 6550 ml Balance -920 ml MAHESH MEDELLIN MD Apr 05, 2019 07:07
[2019-04-06] MEDS ORDERED: BUPIVACAINE HCL 0.5% 30 ML VIAL As Ordered ONE (18:58)
[2019-04-06] MEDS ORDERED: dexameTHASONE 4 MG/ML 1ML VIAL (J1100) As Ordered ONE ×2 (18:58→20:00)
[2019-04-06] MEDS ORDERED: BACITRACIN PWD 50,000 UNITS VIAL As Ordered ONE (18:58)
[2019-04-06] MEDS ORDERED: LIDOCAINE 2% MDV 20 ML VIAL As Ordered ONE (18:58)
[2019-04-06] MEDS ORDERED: NEOSPORIN GU IRRIG 20 ML VIAL As Ordered ONE (18:59)
[2019-04-06] MEDS ORDERED: GENTAMICIN SULF INJ 80MG/2ML VIAL (J1580) As Ordered ONE (19:00)
[2019-04-06] MEDS ORDERED: TOBRAMYCIN SULF 1.2 GM VIAL As Ordered ONE ×2 (19:00→19:47)
[2019-04-06] MEDS ORDERED: VANCOMYCIN HCL 500 MG/10 ML VIAL (J3370) As Ordered ONE (19:46)
[2019-04-06] MEDS ORDERED: LIDOCAINE 2% INJ 100 MG/5 ML SDV (FOR ANES.) As Ordered ONE (20:00)
[2019-04-06] MEDS ORDERED: MIDAZOLAM INJ 2 MG/2 ML VIAL (J2250) As Ordered ONE (20:00)
[2019-04-06] MEDS ORDERED: fentaNYL 100 MCG/2 ML INJECTION (J3010) As Ordered ONE (20:00)
[2019-04-06] MEDS ORDERED: PROPOFOL 200 MG/20 ML VIAL As Ordered ONE (20:00)
[2019-04-06] MEDS ORDERED: ONDANSETRON 4MG/2ML VIAL (J2405) As Ordered ONE (20:01)
[2019-04-06] MEDS ORDERED: LR 1,000 ML IV SCH (20:45)
[2019-04-06] MEDS ORDERED: PERCOCET 5MG/325MG TAB PO PRN (20:45)
[2019-04-06] MEDS ORDERED: ONDANSETRON 4MG/2ML VIAL (J2405) IV PRN (20:45)
[2019-04-07 00:42] VITALS: BP 155/77
[2019-04-07 01:30] VITALS: BP 157/78
[2019-04-07 02:51] VITALS: BP 142/73
[2019-04-07] MEDS: PIPERACILLIN/TAZOBACTAM SOD 3.375 GM in D5W MINI-BAG PLUS 50 ML IV SCH ×4 (04:19→23:37)
[2019-04-07 06:34] LABS: EOS % 0.2 % (0.0-3.0); HEMATOCRIT 33.2 % (42.0-52.0); LYMPH # 0.6 10^3/uL (1.5-5.0); LYMPH % 9.6 % (24.0-44.0); MEAN CORPUSCULAR HEMOGLOBIN 30.4 pg (27.0-33.0); MEAN CORPUSCULAR HGB CONC 33.1 g/dl (32.0-36.5); MEAN CORPUSCULAR VOLUME 91.7 fl (80.0-96.0); MONO # 0.1 10^3/uL (0.0-0.8); MONO % 1.6 % (0.0-5.0); NEUTROPHILS # 5.5 10^3/uL (1.5-8.5); NEUTROPHILS % 88.1 % (36.0-66.0); PLATELET COUNT, AUTOMATED 521 10^3/uL (150-450); RED BLOOD COUNT 3.62 10^6/uL (4.30-6.10); WHITE BLOOD COUNT 6.2 10^3/uL (4.0-10.0)
[2019-04-07 06:54] LABS: CALCIUM LEVEL 9.2 MG/DL (8.8-10.2); CREATININE FOR GFR 1.39 MG/DL (0.70-1.30); GLOMERULAR FILTRATION RATE 54.9 (>49); POTASSIUM SERUM 4.2 MEQ/L (3.5-5.1)
[2019-04-07 07:09] VITALS: BP_SYST 143; BP_SYST 145; BP_DIAS 72; BP_DIAS 74
--- NOTE | 2019-04-07 07:47 | IPN ---
DATE: 04/06/2019 Mr. Mccray has no complaints today. He is going to the operating room later tonight with Dr. Cantu for a wound closure. He has had no fever or chills. No nausea, vomiting or diarrhea. No abdominal pain. The patient states he does not think he can do home IV antibiotics, he has never done and he used to take care of his . LABORATORY DATA: White count is 7.7, hemoglobin 10.2, hematocrit 30.5, platelets 496, 68% neutrophils, 19% lymphocytes, 8% monocytes. Sodium 141, potassium 3.8, chloride 104, bicarb 29, BUN 11, creatinine 1.29, glucose 113, calcium 8.8. Wound culture Proteus mirabilis, Enterobacter aeruginosa, Enterobacter cloacae, strep paralysis, Staphylococcus simulans and anaerobic cocci. PHYSICAL EXAMINATION: Bilateral transmetatarsal amputations right foot with an open wound extending all along the lateral aspect of the foot with exposed fascia and tendon. There is some serosanguineous discharge on the dressing but no purulence, no tenderness. IMPRESSION: Complicated skin and soft tissue infection with deep tissue abscess and concern for osteomyelitis of the fifth metatarsal. Intraoperatively it was consistent with osteomyelitis. Osteomyelitis of the fifth metatarsal with deep tissue abscess, polymicrobial infection, maggots infestation. The patient is not a good candidate for home IV antibiotics. He is going back for wound closure tomorrow. Next, insulin-dependent diabetes with fairly controlled HbA1c. The patient's most recent HbA1c was 7.2. PLAN: Discontinue IV vancomycin. There is no methicillin-resistant Staphylococcus aureus (MRSA). Continue with IV Zosyn. Would suggest continuing IV antibiotics for another 2-3 days postoperatively. The patient is a very high risk of [place] taking care of his who is wheelchair dependent. After once the wound looks improved and healing could switch later to by mouth Cefdinir that should cover the majority of those pathogens. Continue IV Zosyn. Discontinue IV vancomycin.
[2019-04-07] MEDS: HumaLOG INSULIN (NovoLOG) PER UNIT SC SCH ×4 (07:58→20:39)
[2019-04-07] MEDS: ATORVASTATIN 10 MG TAB PO SCH (07:59)
[2019-04-07] MEDS: amLODIPine 5 MG TAB PO SCH (07:59)
[2019-04-07] MEDS: METOPROLOL SUCC (TopROL XL) 50MG **XL** TAB PO SCH (07:59)
[2019-04-07] MEDS: SENOKOT S TAB PO SCH ×2 (07:59→20:39)
[2019-04-07] MEDS: LACTIC ACID 12% LOTION 225 GM BTL TOP SCH ×2 (08:00→20:40)
[2019-04-07] MEDS: MOM 30ML SUSPENSION UDC PO SCH (08:00)
[2019-04-07] MEDS: ENOXAPARIN 40 MG/0.4 ML SYRINGE (J1650) SC SCH (09:14)
[2019-04-07] MEDS: CLOPIDOGREL 75 MG TAB PO SCH (09:14)
[2019-04-07] MEDS: LEVEMIR (INSULIN DETEMIR) 1 UNITS/0.01ML SC SCH (09:14)
--- NOTE | 2019-04-07 11:59 | IPNPDOC ---
Subjective Date Seen The patient was seen on 04/07/19. Subjective Chief Complaint/HPI Patient comfortable, in no apparent distress. Offers no new complaints General: Denies: ROS Unobtainable, Chills, Night Sweats, Fatigue, Malaise, Normal Appetite, Other Symptoms Skin: Denies: Rash, Lesions, Jaundice, Bruising, Itching, Dry, Breakdown, Nail Changes, Other Pulmonary: Denies: Dyspnea, Cough, Pleuritic Chest Pain, Other Symptoms Cardiovascular: Denies: Chest Pain, Palpitations, Orthopnea, Paroxysmal Noc. Dyspnea, Edema, Lt Headedness, Other Symptoms Gastrointestinal: Denies: Nausea, Vomiting, Abdominal Pain, Diarrhea, Constipation, Melena, Hematochezia, Other Symptoms Musculoskeletal: Denies: Neck Pain, Back Pain, Shoulder Pain, Arm Pain, Hand Pain, Leg Pain, Foot Pain, Joint Pain, Muscle Pain, Spasms, Other Symptoms Neurological: Denies: Weakness, Numbness, Incoordination, Change in speech, Confusion, Seizures, Other Symptoms Objective Physical Examination ENT Exam: Negative: Atraumatic, Mucous membr. moist/pink, Pharynx Normal, Tongue Midline, Pharyngeal Edema, Nares Patent, Tympanic Membranes Normal, Ext Auditory Canal Nml, Pinna Normal, Other ENT Chest Exam: Negative: Clear to auscultation, Normal air movement, Rales, Rhonchi, Wheezing, Diminished, Other Heart Exam: Negative: Rate Normal, Tachycardic, Bradycardic, Regular Rhythm, Irregular Rhythm, Normal S1, Normal S2, Gallops, Murmurs, Rubs, Other Abdomen Exam: Negative: Normal bowel sounds, BS Hyperactive, BS Hypoactive, Soft, Tenderness, Hepatospenomegaly, Mass, Hernia, Other Male Exam: Negative: Normal Genital Exam, Lesions, Edema, Erythema, Tenderness, Discharge, Mass, Hernia, Normal Prostate, Normal Sphincter Tone Skin Exam: Negative: Nl turgor and temperature, Rash, Breakdown, Lesion, Pruritus, Other skin issue Neuro Exam: Negative: Normal Gait, Normal Speech, Strength at 5/5 X4 ext, Normal Tone, Sensation Intact, Cranial Nerves 3-12 NL, Reflexes 2+, Other Assessment /Plan Problems (1) Diabetic foot infection Status: Acute Problem Text: Diabetic foot ulcer with cellulitis, abscess and maggots and osteomyelitis. MRI of the foot shows OM with cellulitis, abscess, tenosynovitis, tendinopathy. S/p Incision and drainage on 04/02/19. He had an incision and drainage of the lateral and dorsal right foot with res ection of the 5th metatarsal. He had resection of the 5th metatarsal for possible osteomyelitis Wound culture growing Enterobacter cloacae and strep agalactiae, anaerobic cultures Discontinue IV Vanco is no evidence of MRSA Continue with IV Zosyn. IV antibiotics for 2-3 more days Will switch to Cefdinir on discharge (2) HTN (hypertension) Status: Chronic Problem Text: Hypertension with Hypertensive heart disease. Continue metoprolol. amlodipine , diuretic (3) Diabetes Status: Chronic Problem Text: Diabetes with neuropathy. Carb consistent diet, lispro as per sliding scale Levemir in the Am. FS ac and HS. Sugars acceptable control. (4) HLD (hyperlipidemia) Status: Chronic Problem Text: Dyslipidemia continue statin (5) Osteomyelitis Onset Date: 01/27/2014 Status: Acute Plan/VTE VTE Prophylaxis Ordered?: Yes VS, I&O, [facility] Vital Signs/I&O Vital Signs Date Time Temp Pulse Resp B/P (MAP) Pulse Ox O2 Delivery O2 Flow Rate FiO2 04/07/19 07:59 86 143/74 04/07/19 07:09 97.8 18 98 04/01/19 20:16 Room Air I&O- Last 24 Hours up to 6 AM 04/07/19 06:00 Intake Total 2830 ml Output Total 3005 ml Balance -175 ml Laboratory Data 24H LABS Laboratory Tests 2 04/06/19 17:08: Bedside Glucose (Misc Panel) 111 04/06/19 20:57: Bedside Glucose (Misc Panel) 140H 04/07/19 05:53: Immature Granulocyte % (Auto) 0.5, White Blood Count 6.2, Red Blood Count 3.62L, Hemoglobin 11.0L, Hematocrit 33.2L, Mean Corpuscular Volume 91.7, Mean Corpuscular Hemoglobin 30.4, Mean Corpuscular Hemoglobin Concent 33.1, Red Cell Distribution Width 12.0, Platelet Count 521H, Neutrophils (%) (Auto) 88.1H, Lymphocytes (%) (Auto) 9.6L, Monocytes (%) (Auto) 1.6, Eosinophils (%) (Auto) 0.2, Basophils (%) (Auto) 0.0, Neutrophils # (Auto) 5.5, Lymphocytes # (Auto) 0.6L, Monocytes # (Auto) 0.1, Eosinophils # (Auto) 0.0, Basophils # (Auto) 0.0, Nucleated Red Blood Cells % (auto) 0.0, Anion Gap 9, Glomerular Filtration Rate 54.9, Blood Urea Nitrogen 16, Creatinine 1.39H, Sodium Level 135L, Potassium Level 4.2, Chloride Level 99, Carbon Dioxide Level 27, Calcium Level 9.2 04/07/19 11:10: Bedside Glucose (Misc Panel) 368H CBC/BMP Laboratory Tests 04/07/19 05:53 Red Blood Count 3.62 L, Mean Corpuscular Volume 91.7, Mean Corpuscular H emoglobin 30.4, Mean Corpuscular Hemoglobin Concent 33.1, Red Cell Distribution Width 12.0, Neutrophils (%) (Auto) 88.1 H, Lymphocytes (%) (Auto) 9.6 L, Monocytes (%) (Auto) 1.6, Eosinophils (%) (Auto) 0.2, Basophils (%) (Auto) 0.0, Neutrophils # (Auto) 5.5, Lymphocytes # (Auto) 0.6 L, Monocytes # (Auto) 0.1, Eosinophils # (Auto) 0.0, Basophils # (Auto) 0.0, Calcium Level 9.2 Microbiology Microbiology 04/01/19 Blood Culture - Final, Complete NO GROWTH AFTER 5 DAYS 04/01/19 Blood Culture - Final, Complete NO GROWTH AFTER 5 DAYS 04/02/19 Gram Stain - Final, Resulted 04/02/19 Wound Culture - Preliminary, Resulted Enterobacter Cloacae Complex Streptococcus Group G Streptococcus Oralis 04/02/19 Anaerobic Culture - Final, Resulted Anaerobic Cocci 04/02/19 Gram Stain - Final, Resulted 04/02/19 Surgical Biopsy Culture - Final, Resulted Proteus Vulgaris Enterobacter Aerogenes Streptococcus Oralis Staphylococcus Simulans 04/02/19 Anaerobic Culture, Resulted Pending 04/01/19 Anaerobic Culture - Final, Complete 04/01/19 Gram Stain - Final, Complete 04/01/19 Wound Culture - Final, Complete Enterobacter Cloacae Complex Streptococcus Oralis Staphylococcus PseudinterOSWALD Cat MD Apr 07, 2019 11:59
[2019-04-07 14:04] VITALS: BP 160/84
--- NOTE | 2019-04-07 16:20 | RO ---
DATE OF PROCEDURE: 04/06/2019 PREOPERATIVE DIAGNOSIS: Stage 4 wound right foot. POSTOPERATIVE DIAGNOSIS: Stage 4 wound right foot. OPERATIVE PROCEDURE: Excisional debridement including tendon, skin and subcutaneous tissues right foot with delayed primary closure over antibiotic beads right foot. SURGEON: Shai Cantu D[employer] ATTENDANT: None. ANESTHESIA: IRRIGATION: Dilute gentamicin solution 3 liters low pressure pulse lavage system. HEMOSTASIS: None. ESTIMATED BLOOD LOSS: 5 mL. ANESTHESIA: DESCRIPTION OF OPERATION: On 04/06/2019 this 63-year-old white male was taken from his hospital room to the operating room and placed on the operating room in the supine position. Following the induction of IV sedation, local and regional anesthesia, attention was directed to the patient's right foot. Utilizing a sharp curette debridement was carried through the skin and subcutaneous tissues. There was some necrotic tendon along the peroneal brevis tendon which was debrided. The wound was then copiously lavaged with dilute gentamicin solution, 3 liters, low pressure pulse lavage system. No bone loss or signs of osteomyelitis were noted. The wound was closed with #2-0 nylon suture including nylon bolster sutures with a simple interrupted fashion. Ten 5 mm tobramycin beads were placed through the wound just prior to complete closure. A dry sterile dressing was applied consisting of Adaptic, 4 x 4, ABD and Kerlix followed by an Audi wrap under low compression. The patient having apparently tolerated the procedure well was taken from the OR to the recovery room for further monitoring by the anesthesia department.
[2019-04-07 20:46] VITALS: BP 162/84
[2019-04-08] MEDS: PIPERACILLIN/TAZOBACTAM SOD 3.375 GM in D5W MINI-BAG PLUS 50 ML IV SCH ×4 (05:45→23:33)
[2019-04-08 06:14] VITALS: BP 168/88
[2019-04-08 06:52] LABS: BASO % 0.4 % (0.0-1.0); EOS # 0.1 10^3/uL (0.0-0.5); HEMATOCRIT 32.3 % (42.0-52.0); HEMOGLOBIN 10.7 g/dl (13.5-17.5); LYMPH # 1.8 10^3/uL (1.5-5.0); LYMPH % 22.3 % (24.0-44.0); MEAN CORPUSCULAR HEMOGLOBIN 29.2 pg (27.0-33.0); MEAN CORPUSCULAR HGB CONC 33.1 g/dl (32.0-36.5); MEAN CORPUSCULAR VOLUME 88.3 fl (80.0-96.0); MONO # 0.6 10^3/uL (0.0-0.8); NEUTROPHILS # 5.4 10^3/uL (1.5-8.5); NEUTROPHILS % 67.7 % (36.0-66.0); PLATELET COUNT, AUTOMATED 482 10^3/uL (150-450); RED BLOOD COUNT 3.66 10^6/uL (4.30-6.10); WHITE BLOOD COUNT 7.9 10^3/uL (4.0-10.0)
[2019-04-08 07:10] LABS: BLOOD UREA NITROGEN 17 MG/DL (7-18); CALCIUM LEVEL 9.2 MG/DL (8.8-10.2); CARBON DIOXIDE LEVEL 27 MEQ/L (21-32); CHLORIDE LEVEL 104 MEQ/L (98-107); CREATININE FOR GFR 1.22 MG/DL (0.70-1.30); GLOMERULAR FILTRATION RATE > 60.0 (>49); GLUCOSE, FASTING 197 MG/DL (70-100); POTASSIUM SERUM 3.6 MEQ/L (3.5-5.1); SODIUM LEVEL 139 MEQ/L (136-145)
[2019-04-08] MEDS: ATORVASTATIN 10 MG TAB PO SCH (08:44)
[2019-04-08] MEDS: MOM 30ML SUSPENSION UDC PO SCH (08:44)
[2019-04-08] MEDS: SENOKOT S TAB PO SCH ×2 (08:44→21:16)
[2019-04-08] MEDS: CLOPIDOGREL 75 MG TAB PO SCH (08:44)
[2019-04-08] MEDS: ENOXAPARIN 40 MG/0.4 ML SYRINGE (J1650) SC SCH (08:44)
[2019-04-08] MEDS: HumaLOG INSULIN (NovoLOG) PER UNIT SC SCH ×5 (08:45→21:00)
[2019-04-08] MEDS: LEVEMIR (INSULIN DETEMIR) 1 UNITS/0.01ML SC SCH (08:45)
[2019-04-08] MEDS: amLODIPine 5 MG TAB PO SCH (08:47)
[2019-04-08] MEDS: METOPROLOL SUCC (TopROL XL) 50MG **XL** TAB PO SCH (08:48)
[2019-04-08] MEDS: LACTIC ACID 12% LOTION 225 GM BTL TOP SCH ×2 (08:48→21:16)
--- NOTE | 2019-04-08 11:05 | IPNPDOC ---
Subjective Date Seen The patient was seen on 04/08/19. Subjective Chief Complaint/HPI Patient is comfortable and not in distress had debridement done yesterday Constitutional: Denies: Chills, Fever, Malaise, Night Sweats, Weakness, Fatigue, Weight Loss, Lethargy, Other Skin: Denies: Rash, Lesions, Jaundice, Bruising, Itching, Dry, Breakdown, Nail Changes, Other Pulmonary: Denies: Dyspnea, Cough, Pleuritic Chest Pain, Other Symptoms Cardiovascular: Denies: Chest Pain, Palpitations, Orthopnea, Paroxysmal Noc. Dyspnea, Edema, Lt Headedness, Other Symptoms Gastrointestinal: Denies: Nausea, Vomiting, Abdominal Pain, Diarrhea, Constipation, Melena, Hematochezia, Other Symptoms Musculoskeletal: Denies: Neck Pain, Back Pain, Shoulder Pain, Arm Pain, Hand Pain, Leg Pain, Foot Pain, Joint Pain, Muscle Pain, Spasms, Other Symptoms Neurological: Denies: Weakness, Numbness, Incoordination, Change in speech, Confusion, Seizures, Other Symptoms Objective Physical Examination General Exam: Positive: Alert, Cooperative Neck Exam: Positive: Supple Chest Exam: Positive: Clear to auscultation, Normal air movement Heart Exam: Positive: Rate Normal, Normal S1, Normal S2 Abdomen Exam: Positive: Normal bowel sounds, Soft Extremity Exam: Positive: Other (dressing on bilateral feet up to both knees) Skin Exam: Positive: Nl turgor and temperature Neuro Exam: Positive: Normal Speech Assessment /Plan Problems (1) Diabetic foot infection Status: Acute Problem Text: Diabetic foot ulcer with cellulitis, abscess and maggots and osteomyelitis. MRI of the foot shows OM with cellulitis, abscess, tenosynovitis, tendinopathy. S/p Incision and drainage on 04/02/19. He had an incision and drainage of the lateral and dorsal right foot with resection of the 5th metatarsal. He had resection of the 5th metatarsal for possible osteomyelitis The patient had a repeat debridement. Debridement done of his right foot for yesterday Wound culture growing Enterobacter cloacae and strep agalactiae, anaerobic cultures Discontinue IV Vanco is no evidence of MRSA Continue with IV Zosyn. IV antibiotics for 2-3 more days Will switch to Cefdinir on discharge (2) HTN (hypertension) Status: Chronic Problem Text: Hypertension with Hypertensive heart disease. Continue metoprolol. amlodipine , diuretic (3) Diabetes Status: Chronic Problem Text: Diabetes with neuropathy. Carb consistent diet, lispro as per sliding scale Levemir in the Am. FS ac and HS. Sugars acceptable control. (4) HLD (hyperlipidemia) Status: Chronic Problem Text: Dyslipidemia continue statin (5) Osteomyelitis Onset Date: 01/27/2014 Status: Acute Plan/VTE VTE Prophylaxis Ordered?: Yes VS, I&O, 24H, Fishbone Vital Signs/I&O Vital Signs Date Time Temp Pulse Resp B/P (MAP) Pulse Ox O2 Delivery O2 Flow Rate FiO2 04/08/19 08:48 77 161/86 04/08/19 06:14 97.9 16 98 I&O- Last 24 Hours up to 6 AM 04/08/19 05:59 Intake Total 1870 ml Output Total 3650 ml Balance -1780 ml Laboratory Data 24H LABS Laboratory Tests 2 04/07/19 11:10: Bedside Glucose (Misc Panel) 368H 04/07/19 16:49: Bedside Glucose (Misc Panel) 341H 04/08/19 06:37: Immature Granulocyte % (Auto) 0.6, White Blood Count 7.9, Red Blood Count 3.66L, Hemoglobin 10.7L, Hematocrit 32.3L, Mean Corpuscular Volume 88.3, Mean Corpuscular Hemoglobin 29.2, Mean Corpuscular Hemoglobin Concent 33.1, Red Cell Distribution Width 11.8, Platelet Count 482H, Neutrophils (%) (Auto) 67.7H, Lymphocytes (%) (Auto) 22.3L, Monocytes (%) (Auto) 8.0H, Eosinophils (%) (Auto) 1.0, Basophils (%) (Auto) 0.4, Neutrophils # (Auto) 5.4, Lymphocytes # (Auto) 1.8, Monocytes # (Auto) 0.6, Eosinophils # (Auto) 0.1, Basophils # (Auto) 0.0, Nucleated Red Blood Cells % (auto) 0.0, Anion Gap 8, Glomerular Filtration Rate > 60.0, Blood Urea Nitrogen 17, Creatinine 1.22, Sodium Level 139, Potassium Level 3.6, Chloride Level 104, Carbon Dioxide Level 27, Calcium Level 9.2, C- Reactive Protein, Quantitative 1.90H CBC/BMP Laboratory Tests 04/08/19 06:37 Red Blood Count 3.66 L, Mean Corpuscular Volume 88.3, Mean Corpuscular Hemoglobin 29.2, Mean Corpuscular Hemoglobin Concent 33.1, Red Cell Distribution Width 11.8, Neutrophils (%) (Auto) 67.7 H, Lymphocytes (%) (Auto) 22.3 L, Monocytes (%) (Auto) 8.0 H, Eosinophils (%) (Auto) 1.0, Basophils (%) (Auto) 0.4, Neutrophils # (Auto) 5.4, Lymphocytes # (Auto) 1.8, Monocytes # (Auto) 0.6, Eosinophils # (Auto) 0.1, Basophils # (Auto) 0.0, Calcium Level 9.2 Microbiology Microbiology 04/01/19 Blood Culture - Final, Complete NO GROWTH AFTER 5 DAYS 04/01/19 Blood Culture - Final, Complete NO GROWTH AFTER 5 DAYS 04/02/19 Gram Stain - Final, Complete 04/02/19 Wound Culture - Final, Complete Enterobacter Cloacae Complex Streptococcus Group G Streptococcus Oralis Proteus Vulgaris 04/02/19 Anaerobic Culture - Final, Complete Anaerobic Cocci 04/02/19 Gram Stain - Final, Complete 04/02/19 Surgical Biopsy Culture - Final, Complete Proteus Vulgaris Enterobacter Aerogenes Streptococcus Oralis Staphylococcus Simulans 04/02/19 Anaerobic Culture - Final, Complete Anaerobic Cocci Porphyromonas Asaccharolytica 04/01/19 Anaerobic Culture - Final, Complete 04/01/19 Gram Stain - Final, Complete 04/01/19 Wound Culture - Final, Complete Enterobacter Cloacae Complex Streptococcus Oralis Staphylococcus Pseudintermediu OSWALD MCKEON MD Apr 08, 2019 11:05
[2019-04-08] MEDS ORDERED: BISACODYL 5 MG TAB PO ONE (15:00)
[2019-04-08 16:00] VITALS: BP 170/90
[2019-04-08 20:57] VITALS: BP 157/82
[2019-04-09] MEDS: PIPERACILLIN/TAZOBACTAM SOD 3.375 GM in D5W MINI-BAG PLUS 50 ML IV SCH ×4 (05:14→23:13)
[2019-04-09 06:15] VITALS: BP 158/84
[2019-04-09] MEDS: ENOXAPARIN 40 MG/0.4 ML SYRINGE (J1650) SC SCH (08:14)
[2019-04-09] MEDS: LEVEMIR (INSULIN DETEMIR) 1 UNITS/0.01ML SC SCH (08:14)
[2019-04-09] MEDS: HumaLOG INSULIN (NovoLOG) PER UNIT SC SCH ×4 (08:14→21:53)
[2019-04-09] MEDS: amLODIPine 5 MG TAB PO SCH (08:15)
[2019-04-09] MEDS: ATORVASTATIN 10 MG TAB PO SCH (08:15)
[2019-04-09] MEDS: SENOKOT S TAB PO SCH ×2 (08:15→21:53)
[2019-04-09] MEDS: MOM 30ML SUSPENSION UDC PO SCH (08:15)
[2019-04-09] MEDS: METOPROLOL SUCC (TopROL XL) 50MG **XL** TAB PO SCH (08:15)
[2019-04-09] MEDS: CLOPIDOGREL 75 MG TAB PO SCH (08:15)
[2019-04-09] MEDS: LACTIC ACID 12% LOTION 225 GM BTL TOP SCH ×2 (08:16→21:54)
--- NOTE | 2019-04-09 11:07 | IPNPDOC ---
Subjective Date Seen The patient was seen on 04/09/19. Subjective Chief Complaint/HPI Patient is comfortable offers no new complaints. Wants to go home General: Denies: ROS Unobtainable, Chills, Night Sweats, Fatigue, Malaise, Normal Appetite, Other Symptoms Constitutional: Denies: Chills, Fever, Malaise, Night Sweats, Weakness, Fatigue, Weight Loss, Lethargy, Other Pulmonary: Denies: Dyspnea, Cough, Pleuritic Chest Pain, Other Symptoms Cardiovascular: Denies: Chest Pain, Palpitations, Orthopnea, Paroxysmal Noc. Dyspnea, Edema, Lt Headedness, Other Symptoms Gastrointestinal: Denies: Nausea, Vomiting, Abdominal Pain, Diarrhea, Constipation, Melena, Hematochezia, Other Symptoms Musculoskeletal: Denies: Neck Pain, Back Pain, Shoulder Pain, Arm Pain, Hand Pain, Leg Pain, Foot Pain, Joint Pain, Muscle Pain, Spasms, Other Symptoms Neurological: Denies: Weakness, Numbness, Incoordination, Change in speech, Confusion, Seizures, Other Symptoms Objective Physical Examination Neck Exam: Positive: Supple Chest Exam: Positive: Clear to auscultation, Normal air movement Heart Exam: Positive: Rate Normal, Normal S1, Normal S2 Abdomen Exam: Positive: Normal bowel sounds, Soft Extremity Exam: Positive: Other (dressing on bilateral feet up to both knees) Skin Exam: Positive: Nl turgor and temperature Neuro Exam: Positive: Normal Speech Assessment /Plan Problems (1) Diabetic foot infection Status: Acute Problem Text: Diabetic foot ulcer with cellulitis, abscess and maggots and osteomyelitis. MRI of the foot shows OM with cellulitis, abscess, tenosynovitis, tendinopathy. S/p Incision and drainage on 04/02/19. He had an incision and drainage of the lateral and dorsal right foot with resection of the 5th metatarsal. He had resection of the 5th metatarsal for possible osteomyelitis The patient had a repeat debridement. Debridement done of his right foot for yesterday Wound culture growing Enterobacter cloacae and strep agalactiae, anaerobic cultures Discontinue IV Vanco is no evidence of MRSA Continue with IV Zosyn. IV antibiotics for 2-3 more days Will switch to Cefdinir on discharge Possible discharge home with home care ID follow-up today Podiatry follow-up today (2) HTN (hypertension) Status: Chronic Problem Text: Hypertension with Hypertensive heart disease. Continue metoprolol. amlodipine , diuretic (3) Diabetes Status: Chronic Problem Text: Diabetes with neuropathy. Carb consistent diet, lispro as per sliding scale Levemir in the Am. FS ac and HS. Sugars acceptable control. (4) HLD (hyperlipidemia) Status: Chronic Problem Text: Dyslipidemia continue statin (5) Osteomyelitis Onset Date: 01/27/2014 Status: Acute Plan/VTE VTE Prophylaxis Ordered?: Yes VS, I&O, 24H, Fishbone Vital Signs/I&O Vital Signs Date Time Temp Pulse Resp B/P (MAP) Pulse Ox O2 Delivery O2 Flow Rate FiO2 04/09/19 08:15 74 158/84 04/09/19 06:15 98.1 20 95 I&O- Last 24 Hours up to 6 AM 04/09/19 06:00 Intake Total 2260 ml Output Total 1000 ml Balance 1260 ml Laboratory Data 24H LABS Laboratory Tests 2 04/08/19 12:16: Bedside Glucose (Misc Panel) 252H 04/08/19 16:51: Bedside Glucose (Misc Panel) 306H 04/08/19 20:58: Bedside Glucose (Misc Panel) 191H 04/09/19 06:28: Bedside Glucose (Misc Panel) 161H Microbiology Microbiology 04/01/19 Blood Culture - Final, Complete NO GROWTH AFTER 5 DAYS 04/01/19 Blood Culture - Final, Complete NO GROWTH AFTER 5 DAYS 04/02/19 Gram Stain - Final, Complete 04/02/19 Wound Culture - Final, Complete Enterobacter Cloacae Complex Streptococcus Group G Streptococcus Oralis Proteus Vulgaris 04/02/19 Anaerobic Culture - Final, Complete Anaerobic Cocci 04/02/19 Gram Stain - Final, Complete 04/02/19 Surgical Biopsy Culture - Final, Complete Proteus Vulgaris Enterobacter Aerogenes Streptococcus Oralis Staphylococcus Simulans 04/02/19 Anaerobic Culture - Final, Complete Anaerobic Cocci Porphyromonas Asaccharolytica 04/01/19 Anaerobic Culture - Final, Complete 04/01/19 Gram Stain - Final, Complete 04/01/19 Wound Culture - Final, Complete Enterobacter Cloacae Complex Streptococcus Oralis Staphylococcus PseudinterOSWALD Cat MD Apr 09, 2019 11:07
[2019-04-09 14:00] VITALS: BP 132/75
[2019-04-09] MEDS: SILVER SULFADIAZINE 1% CR 50 GM JAR TOP SCH ×2 (14:11→23:14)
[2019-04-09 20:15] VITALS: BP 136/75
[2019-04-09 20:24] VITALS: BP 136/75
[2019-04-10] MEDS: PIPERACILLIN/TAZOBACTAM SOD 3.375 GM in D5W MINI-BAG PLUS 50 ML IV SCH (05:18)
[2019-04-10 06:55] VITALS: BP 138/78
[2019-04-10 07:00] VITALS: BP 138/78
[2019-04-10] MEDS: MOM 30ML SUSPENSION UDC PO SCH (08:03)
[2019-04-10] MEDS: SENOKOT S TAB PO SCH ×2 (08:03→21:05)
[2019-04-10] MEDS: HumaLOG INSULIN (NovoLOG) PER UNIT SC SCH ×4 (08:15→21:00)
[2019-04-10] MEDS: ENOXAPARIN 40 MG/0.4 ML SYRINGE (J1650) SC SCH (08:15)
[2019-04-10] MEDS: LEVEMIR (INSULIN DETEMIR) 1 UNITS/0.01ML SC SCH (08:15)
[2019-04-10] MEDS: amLODIPine 5 MG TAB PO SCH (08:16)
[2019-04-10] MEDS: METOPROLOL SUCC (TopROL XL) 50MG **XL** TAB PO SCH (08:16)
[2019-04-10] MEDS: CLOPIDOGREL 75 MG TAB PO SCH (08:16)
[2019-04-10] MEDS: SILVER SULFADIAZINE 1% CR 50 GM JAR TOP SCH ×2 (08:16→21:00)
[2019-04-10] MEDS: LACTIC ACID 12% LOTION 225 GM BTL TOP SCH ×2 (08:16→21:06)
[2019-04-10] MEDS: ATORVASTATIN 10 MG TAB PO SCH (08:16)
--- NOTE | 2019-04-10 10:36 | IPNPDOC ---
Subjective Date Seen The patient was seen on 04/10/19. Subjective Chief Complaint/HPI Patient is comfortable offers no new complaints, is being followed up by podiatry General: Denies: ROS Unobtainable, Chills, Night Sweats, Fatigue, Malaise, Normal Appetite, Other Symptoms Constitutional: Denies: Chills, Fever, Malaise, Night Sweats, Weakness, Fatigue, Weight Loss, Lethargy, Other Skin: Denies: Rash, Lesions, Jaundice, Bruising, Itching, Dry, Breakdown, Nail Changes, Other Pulmonary: Denies: Dyspnea, Cough, Pleuritic Chest Pain, Other Symptoms Cardiovascular: Denies: Chest Pain, Palpitations, Orthopnea, Paroxysmal Noc. Dyspnea, Edema, Lt Headedness, Other Symptoms Gastrointestinal: Denies: Nausea, Vomiting, Abdominal Pain, Diarrhea, Constipation, Melena, Hematochezia, Other Symptoms Musculoskeletal: Denies: Neck Pain, Back Pain, Shoulder Pain, Arm Pain, Hand Pain, Leg Pain, Foot Pain, Joint Pain, Muscle Pain, Spasms, Other Symptoms Neurological: Denies: Weakness, Numbness, Incoordination, Change in speech, Confusion, Seizures, Other Symptoms Objective Physical Examination Neck Exam: Positive: Supple Chest Exam: Positive: Clear to auscultation, Normal air movement Heart Exam: Positive: Rate Normal, Normal S1, Normal S2 Abdomen Exam: Positive: Normal bowel sounds, Soft Extremity Exam: Positive: Other (dressing on bilateral feet up to both knees) Skin Exam: Positive: Nl turgor and temperature Neuro Exam: Positive: Normal Speech Assessment /Plan Problems (1) Diabetic foot infection Status: Acute Problem Text: Diabetic foot ulcer with cellulitis, abscess and maggots and osteomyelitis. MRI of the foot shows OM with cellulitis, abscess, tenosynovitis, tendinopathy. S/p Incision and drainage on 04/02/19. He had an incision and drainage of the lateral and dorsal right foot with resection of the 5th metatarsal. He had resection of the 5th metatarsal for possible osteomyelitis The patient had a repeat debridement. Debridement done of his right foot for yesterday Wound culture growing Enterobacter cloacae and strep agalactiae, anaerobic cultures Discontinue IV Vanco is no evidence of MRSA DC Zosyn Start Cefdinir Once cleared by podiatry. Patient can be discharged home (2) HTN (hypertension) Status: Chronic Problem Text: Hypertension with Hypertensive heart disease. Continue metoprolol. amlodipine , diuretic (3) Diabetes Status: Chronic Problem Text: Diabetes with neuropathy. Carb consistent diet, lispro as per sliding scale Levemir in the Am. FS ac and HS. Sugars acceptable control. (4) HLD (hyperlipidemia) Status: Chronic Problem Text: Dyslipidemia continue statin (5) Osteomyelitis Onset Date: 01/27/2014 Status: Acute Plan/VTE VTE Prophylaxis Ordered?: Yes VS, I&O, 24H, Fishbone Vital Signs/I&O Vital Signs Date Time Temp Pulse Resp B/P (MAP) Pulse Ox O2 Delivery O2 Flow Rate FiO2 04/10/19 08:16 68 138/78 04/10/19 07:00 98.1 94 04/10/19 06:55 20 I&O- Last 24 Hours up to 6 AM 04/10/19 06:00 Intake Total 1305 ml Output Total 0 ml Balance 1305 ml Laboratory Data 24H LABS Laboratory Tests 2 04/09/19 11:41: Bedside Glucose (Misc Panel) 163H 04/09/19 16:46: Bedside Glucose (Misc Panel) 292H 04/09/19 20:26: Bedside Glucose (Misc Panel) 322H 04/10/19 06:58: Bedside Glucose (Misc Panel) 177H Microbiology Microbiology 04/01/19 Blood Culture - Final, Complete NO GROWTH AFTER 5 DAYS 04/01/19 Blood Culture - Final, Complete NO GROWTH AFTER 5 DAYS 04/02/19 Gram Stain - Final, Complete 04/02/19 Wound Culture - Final, Complete Enterobacter Cloacae Complex Streptococcus Group G Streptococcus Oralis Proteus Vulgaris 04/02/19 Anaerobic Culture - Final, Complete Anaerobic Cocci 04/02/19 Gram Stain - Final, Complete 04/02/19 Surgical Biopsy Culture - Final, Complete Proteus Vulgaris Enterobacter Aerogenes Streptococcus Oralis Staphylococcus Simulans 04/02/19 Anaerobic Culture - Final, Complete Anaerobic Cocci Porphyromonas Asaccharolytica 04/01/19 Anaerobic Culture - Final, Complete 04/01/19 Gram Stain - Final, Complete 04/01/19 Wound Culture - Final, Complete Enterobacter Cloacae Complex Streptococcus Oralis Staphylococcus PseudOSWALD Reyes MD Apr 10, 2019 10:36
[2019-04-10] MEDS: CEFDINIR 300 MG CAP (OMNICEF) PO SCH (10:50)
[2019-04-10] MEDS: metroNIDAZOLE (FLAGYL) 500 MG TAB PO SCH ×2 (12:46→21:05)
[2019-04-10 14:00] VITALS: BP 144/78
[2019-04-10 19:48] VITALS: BP 145/78
[2019-04-10] MEDS ORDERED: CEFDINIR 300 MG CAP (OMNICEF) PO SCH (21:00)
[2019-04-11] MEDS: metroNIDAZOLE (FLAGYL) 500 MG TAB PO SCH ×3 (05:40→20:46)
[2019-04-11 06:14] VITALS: BP 148/81
[2019-04-11] MEDS: CEFDINIR 300 MG CAP (OMNICEF) PO SCH (08:48)
[2019-04-11] MEDS: SENOKOT S TAB PO SCH ×2 (08:48→20:46)
[2019-04-11] MEDS: ATORVASTATIN 10 MG TAB PO SCH (08:48)
[2019-04-11] MEDS: amLODIPine 5 MG TAB PO SCH (08:49)
[2019-04-11] MEDS: ENOXAPARIN 40 MG/0.4 ML SYRINGE (J1650) SC SCH (08:49)
[2019-04-11] MEDS: METOPROLOL SUCC (TopROL XL) 50MG **XL** TAB PO SCH (08:49)
[2019-04-11] MEDS: LEVEMIR (INSULIN DETEMIR) 1 UNITS/0.01ML SC SCH (08:50)
[2019-04-11] MEDS: HumaLOG INSULIN (NovoLOG) PER UNIT SC SCH ×4 (08:50→20:47)
[2019-04-11] MEDS: MOM 30ML SUSPENSION UDC PO SCH (08:50)
[2019-04-11] MEDS: CLOPIDOGREL 75 MG TAB PO SCH (08:51)
[2019-04-11] MEDS: SILVER SULFADIAZINE 1% CR 50 GM JAR TOP SCH ×2 (08:54→20:47)
[2019-04-11] MEDS: LACTIC ACID 12% LOTION 225 GM BTL TOP SCH ×2 (08:54→20:47)
--- NOTE | 2019-04-11 10:46 | IPNPDOC ---
Subjective Date Seen The patient was seen on 04/11/19. Subjective Chief Complaint/HPI has a wound VAC on and offers no new complaints, awaiting clearance from podiatry for discharge home General: Denies: ROS Unobtainable, Chills, Night Sweats, Fatigue, Malaise, Normal Appetite, Other Symptoms Constitutional: Denies: Chills, Fever, Malaise, Night Sweats, Weakness, Fatigue, Weight Loss, Lethargy, Other Skin: Denies: Rash, Lesions, Jaundice, Bruising, Itching, Dry, Breakdown, Nail Changes, Other Pulmonary: Denies: Dyspnea, Cough, Pleuritic Chest Pain, Other Symptoms Cardiovascular: Denies: Chest Pain, Palpitations, Orthopnea, Paroxysmal Noc. Dyspnea, Edema, Lt Headedness, Other Symptoms Gastrointestinal: Denies: Nausea, Vomiting, Abdominal Pain, Diarrhea, Constipation, Melena, Hematochezia, Other Symptoms Musculoskeletal: Denies: Neck Pain, Back Pain, Shoulder Pain, Arm Pain, Hand Pain, Leg Pain, Foot Pain, Joint Pain, Muscle Pain, Spasms, Other Symptoms Neurological: Denies: Weakness, Numbness, Incoordination, Change in speech, Confusion, Seizures, Other Symptoms Objective Physical Examination General Exam: Positive: Alert Neck Exam: Positive: Supple Chest Exam: Positive: Clear to auscultation, Normal air movement Heart Exam: Positive: Rate Normal, Normal S1, Normal S2 Abdomen Exam: Positive: Normal bowel sounds, Soft Extremity Exam: Positive: Other (dressing on bilateral feet up to both knees) Skin Exam: Positive: Nl turgor and temperature Neuro Exam: Positive: Normal Speech Assessment /Plan Problems (1) Diabetic foot infection Status: Acute Problem Text: Diabetic foot ulcer with cellulitis, abscess and maggots and osteomyelitis. MRI of the foot shows OM with cellulitis, abscess, tenosynovitis, tendinopathy. S/p Incision and drainage on 04/02/19. He had an incision and drainage of the lateral and dorsal right foot with resection of the 5th metatarsal. He had resection of the 5th metatarsal for possible osteomyelitis The patient had a repeat debridement. Debridement done of his right foot for yesterday Wound culture growing Enterobacter cloacae and strep agalactiae, anaerobic cultures Discontinue IV Vanco is no evidence of MRSA DC Zosyn Start Cefdinir Wound VAC in place on right foot Once the home care through some med. Patient will be discharged home with wound care (2) HTN (hypertension) Status: Chronic Problem Text: Hypertension with Hypertensive heart disease. Continue metoprolol. amlodipine , diuretic (3) Diabetes Status: Chronic Problem Text: Diabetes with neuropathy. Carb consistent diet, lispro as per sliding scale Levemir in the Am. FS ac and HS. Sugars acceptable control. (4) HLD (hyperlipidemia) Status: Chronic Problem Text: Dyslipidemia continue statin (5) Osteomyelitis Onset Date: 01/27/2014 Status: Acute Plan/VTE VTE Prophylaxis Ordered?: Yes VS, I&O, 24H, Fishbone Vital Signs/I&O Vital Signs Date Time Temp Pulse Resp B/P (MAP) Pulse Ox O2 Delivery O2 Flow Rate FiO2 04/11/19 08:49 75 140/80 04/11/19 06:14 97.7 18 98 I&O- Last 24 Hours up to 6 AM 04/11/19 06:00 Intake Total 900 ml Output Total 1500 ml Balance -600 ml Laboratory Data 24H LABS Laboratory Tests 2 04/10/19 11:44: Bedside Glucose (Misc Panel) 205H 04/10/19 17:24: Bedside Glucose (Misc Panel) 167H 04/10/19 19:52: Bedside Glucose (Misc Panel) 209H 04/11/19 06:14: Bedside Glucose (Misc Panel) 201H Microbiology Microbiology 04/01/19 Blood Culture - Final, Complete NO GROWTH AFTER 5 DAYS 04/01/19 Blood Culture - Final, Complete NO GROWTH AFTER 5 DAYS 04/02/19 Gram Stain - Final, Complete 04/02/19 Wound Culture - Final, Complete Enterobacter Cloacae Complex Streptococcus Group G Streptococcus Oralis Proteus Vulgaris 04/02/19 Anaerobic Culture - Final, Complete Anaerobic Cocci 04/02/19 Gram Stain - Final, Complete 04/02/19 Surgical Biopsy Culture - Final, Complete Proteus Vulgaris Enterobacter Aerogenes Streptococcus Oralis Staphylococcus Simulans 04/02/19 Anaerobic Culture - Final, Complete Anaerobic Cocci Porphyromonas Asaccharolytica 04/01/19 Anaerobic Culture - Final, Complete 04/01/19 Gram Stain - Final, Complete 04/01/19 Wound Culture - Final, Complete Enterobacter Cloacae Complex Streptococcus Oralis Staphylococcus PseudinterOSWALD Cat MD Apr 11, 2019 10:46
--- NOTE | 2019-04-11 14:00 | IPN ---
DATE: 04/10/2019 Mr. Mccray was seen and examined this morning. He has no complaints. The wound was examined and the sutures were removed. He had very minimal discharge and he will have a wound Vac placed later today. He has a desire to go home but he wants to go back to take care of his and be back [place] his [place]. He denies any fevers, chills, nausea, vomiting, diarrhea or abdominal pain. He has no complaints today. PHYSICAL EXAMINATION: Vitals: Temperature 98.0, pulse 72, respirations 18, blood pressure 145/78 (100). Pulse ox 98% on room air. GENERAL: This is a very pleasant 63-year-old male who does not appear in acute distress. Appropriately answering questions. HEENT: Atraumatic. Normocephalic. Pupils are equal, round and reactive. HEART: Normal, S1, S2. Faint heart sounds, but no audible murmurs, rubs or gallops. LUNGS: Clear to auscultate bilaterally. No audible wheezing, rhonchi, rales. ABDOMEN: Soft, nontender. Slightly obese. Abdomen with positive bowel sounds in all four quadrants. EXTREMITIES: Bilateral transmetatarsal amputation right foot. Right foot with an open wound extending all the way along the lateral aspect of the foot with exposed fascia and tendon. There is some serosanguineous discharge, but no purulence or tenderness on palpation or on the dressing. LABORATORIES: WBC 7.9, hemoglobin 10.7, hematocrit 32.3, platelets 482. Chemistry: Sodium 139, potassium 3.6, chloride 104. Carbon dioxide 27, BUN 17, creatinine 1.22. Fasting glucose 197. CRP 1.90. Microbiology: Foot cultures polymicrobial positive for enterobacter cloacae complex, streptococcus group G and streptococcus oralis, proteus vulgaris, anaerobic cocci and Porphyromonas based asaccharolytica. Antibiotics piperacillin 3.75 since 04/01/2019. IMPRESSION: 1. Complicated skin and soft tissue infection with deep tendon abscess and concern for osteomyelitis of the fifth metatarsal. Intraoperatively was consistent with osteomyelitis with deep tissue abscess polymicrobial infection with maggots infestation. Patient is not a good candidate for home IV antibiotics. 2. Insulin dependent diabetes. Poorly controlled A1c. Most recent 7.2. PLAN: Discontinue Zosyn, start Flagyl 500 mg every 8 and cefdinir 600 mg daily. Wound Vac will be placed later today. Patient has a very high risk of recurrent infection [place] and working and taking care of the who is wheelchair dependent. He will continue with cefdinir and Flagyl for at least 4 to 6 weeks depending on clinical improvement. He will followup with me outpatient upon discharge in 2 to 3 weeks later. Discontinue Zosyn. My faculty preceptor for this patient encounter was physically present during the encounter and was fully available. All aspects of the patient interview, examination, medical decision making process, and medical care plan development were reviewed and approved by the faculty preceptor. The faculty preceptor is aware and concurs with the plan as stated in the body of this note and will attest to such by his/her co-signature.
[2019-04-11 22:00] VITALS: BP 151/82
[2019-04-12 02:00] VITALS: BP 158/88
[2019-04-12] MEDS: metroNIDAZOLE (FLAGYL) 500 MG TAB PO SCH ×3 (05:35→21:34)
[2019-04-12 06:00] VITALS: BP 155/87
[2019-04-12] MEDS: CEFDINIR 300 MG CAP (OMNICEF) PO SCH (08:11)
[2019-04-12] MEDS: CLOPIDOGREL 75 MG TAB PO SCH (08:11)
[2019-04-12] MEDS: ATORVASTATIN 10 MG TAB PO SCH (08:11)
[2019-04-12] MEDS: SENOKOT S TAB PO SCH ×2 (08:11→21:34)
[2019-04-12] MEDS: ENOXAPARIN 40 MG/0.4 ML SYRINGE (J1650) SC SCH (08:11)
[2019-04-12] MEDS: METOPROLOL SUCC (TopROL XL) 50MG **XL** TAB PO SCH (08:13)
[2019-04-12] MEDS: MOM 30ML SUSPENSION UDC PO SCH (08:13)
[2019-04-12] MEDS: amLODIPine 5 MG TAB PO SCH (08:13)
[2019-04-12] MEDS: SILVER SULFADIAZINE 1% CR 50 GM JAR TOP SCH ×2 (08:15→21:00)
[2019-04-12] MEDS: LEVEMIR (INSULIN DETEMIR) 1 UNITS/0.01ML SC SCH (08:45)
[2019-04-12] MEDS: HumaLOG INSULIN (NovoLOG) PER UNIT SC SCH ×4 (08:46→21:34)
[2019-04-12] MEDS: LACTIC ACID 12% LOTION 225 GM BTL TOP SCH ×2 (08:46→21:35)
[2019-04-12 10:00] VITALS: BP_SYST 13; BP_SYST 137; BP_DIAS 75
--- NOTE | 2019-04-12 10:44 | IPNPDOC ---
Subjective Date Seen The patient was seen on 04/12/19. Subjective Chief Complaint/HPI Patient comfortable wound VAC placed in right foot, scheduled to be discharged tomorrow once the home care arrangements are made General: Denies: ROS Unobtainable, Chills, Night Sweats, Fatigue, Malaise, [place] mal Appetite, Other Symptoms Constitutional: Denies: Chills, Fever, Malaise, Night Sweats, Weakness, Fatig ue, Weight Loss, Lethargy, Other Skin: Denies: Rash, Lesions, Jaundice, Bruising, Itching, Dry, Breakdown, Nail Changes, Other Pulmonary: Denies: Dyspnea, Cough, Pleuritic Chest Pain, Other Symptoms Cardiovascular: Denies: Chest Pain, Palpitations, Orthopnea, Paroxysmal Noc. Dyspnea, Edema, Lt Headedness, Other Symptoms Gastrointestinal: Denies: Nausea, Vomiting, Abdominal Pain, Diarrhea, Constipation, Melena, Hematochezia, Other Symptoms Musculoskeletal: Denies: Neck Pain, Back Pain, Shoulder Pain, Arm Pain, Hand Pain, Leg Pain, Foot Pain, Joint Pain, Muscle Pain, Spasms, Other Symptoms Neurological: Denies: Weakness, Numbness, Incoordination, Change in speech, Confusion, Seizures, Other Symptoms Objective Physical Examination General Exam: Positive: Alert Neck Exam: Positive: Supple Chest Exam: Positive: Clear to auscultation, Normal air movement Heart Exam: Positive: Rate Normal, Normal S1, Normal S2 Abdomen Exam: Positive: Normal bowel sounds, Soft Extremity Exam: Positive: Other (dressing on bilateral feet up to both knees, leg, present on right foot) Skin Exam: Positive: Nl turgor and temperature Neuro Exam: Positive: Normal Speech Assessment /Plan Problems (1) Diabetic foot infection Status: Acute Problem Text: Diabetic foot ulcer with cellulitis, abscess and maggots and osteomyelitis. MRI of the foot shows OM with cellulitis, abscess, tenosynovitis, tendinopathy. S/p Incision and drainage on 04/02/19. He had an incision and drainage of the lateral and dorsal right foot with resection of the 5th metatarsal. He had resection of the 5th metatarsal for possible osteomyelitis The patient had a repeat debridement. Debridement done of his right foot for yesterday Wound culture growing Enterobacter cloacae and strep agalactiae, anaerobic cultures Discontinue IV Vanco is no evidence of MRSA Zosysuellen was DC'd , Continue Ceftin or Cefdinir Wound VAC in place on right foot Patient will be discharged home tomorrow with a wound VAC. Once the outpatient home care arrangements are made (2) HTN (hypertension) Status: Chronic Problem Text: Hypertension with Hypertensive heart disease. Continue metoprolol. amlodipine , diuretic (3) Diabetes Status: Chronic Problem Text: Diabetes with neuropathy. Carb consistent diet, lispro as per sliding scale Levemir in the Am. FS ac and HS. Sugars acceptable control. (4) HLD (hyperlipidemia) Status: Chronic Problem Text: Dyslipidemia continue statin (5) Osteomyelitis Onset Date: 01/27/2014 Status: Acute Plan/VTE VTE Prophylaxis Ordered?: Yes VS, I&O, 24H, Fishbone Vital Signs/I&O Vital Signs Date Time Temp Pulse Resp B/P (MAP) Pulse Ox O2 Delivery O2 Flow Rate FiO2 04/12/19 10:00 98.0 81 18 13/75 (55) 98 I&O- Last 24 Hours up to 6 AM 04/12/19 06:00 Intake Total 2480 ml Output Total 2300 ml Balance 180 ml Laboratory Data 24H LABS Laboratory Tests 2 04/11/19 11:37: Bedside Glucose (Misc Panel) 178H 04/11/19 17:08: Bedside Glucose (Misc Panel) 159H 04/11/19 20:43: Bedside Glucose (Misc Panel) 202H 04/12/19 06:23: Bedside Glucose (Misc Panel) 163H Microbiology Microbiology 04/02/19 Gram Stain - Final, Complete 04/02/19 Wound Culture - Final, Complete Enterobacter Cloacae Complex Streptococcus Group G Streptococcus Oralis Proteus Vulgaris 04/02/19 Anaerobic Culture - Final, Complete Anaerobic Cocci 04/02/19 Gram Stain - Final, Complete 04/02/19 Surgical Biopsy Culture - Final, Complete Proteus Vulgaris Enterobacter Aerogenes Streptococcus Oralis Staphylococcus Simulans 04/02/19 Anaerobic Culture - Final, Complete Anaerobic Cocci Porphyromonas Asaccharolytica OSWALD MCKEON MD Apr 12, 2019 10:44
[2019-04-12 14:00] VITALS: BP 155/75
[2019-04-12 22:00] VITALS: BP 154/77
[2019-04-13 02:00] VITALS: BP 149/78
[2019-04-13] MEDS: metroNIDAZOLE (FLAGYL) 500 MG TAB PO SCH ×3 (05:55→21:00)
[2019-04-13 06:00] VITALS: BP 151/82
[2019-04-13] MEDS: HumaLOG INSULIN (NovoLOG) PER UNIT SC SCH ×4 (07:45→21:00)
[2019-04-13] MEDS: SENOKOT S TAB PO SCH ×2 (08:53→21:00)
[2019-04-13] MEDS: CLOPIDOGREL 75 MG TAB PO SCH (08:56)
[2019-04-13] MEDS: METOPROLOL SUCC (TopROL XL) 50MG **XL** TAB PO SCH (08:56)
[2019-04-13] MEDS: amLODIPine 5 MG TAB PO SCH (08:56)
[2019-04-13] MEDS: ATORVASTATIN 10 MG TAB PO SCH (08:56)
[2019-04-13] MEDS: CEFDINIR 300 MG CAP (OMNICEF) PO SCH (08:56)
[2019-04-13] MEDS: ENOXAPARIN 40 MG/0.4 ML SYRINGE (J1650) SC SCH (08:57)
[2019-04-13] MEDS: LEVEMIR (INSULIN DETEMIR) 1 UNITS/0.01ML SC SCH (08:57)
[2019-04-13] MEDS: LACTIC ACID 12% LOTION 225 GM BTL TOP SCH ×2 (09:00→21:01)
[2019-04-13] MEDS: MOM 30ML SUSPENSION UDC PO SCH (09:00)
--- NOTE | 2019-04-13 10:07 | IPNPDOC ---
Subjective Date Seen The patient was seen on 04/13/19. Subjective Chief Complaint/HPI Patient is awaiting discharge. Offers no new complaints General: Denies: ROS Unobtainable, Chills, Night Sweats, Fatigue, Malaise, Normal Appetite, Other Symptoms Constitutional: Denies: Chills, Fever, Malaise, Night Sweats, Weakness, Fatigue, Weight Loss, Lethargy, Other Skin: Denies: Rash, Lesions, Jaundice, Bruising, Itching, Dry, Breakdown, Nail Changes, Other Pulmonary: Denies: Dyspnea, Cough, Pleuritic Chest Pain, Other Symptoms Cardiovascular: Denies: Chest Pain, Palpitations, Orthopnea, Paroxysmal Noc. Dyspnea, Edema, Lt Headedness, Other Symptoms Gastrointestinal: Denies: Nausea, Vomiting, Abdominal Pain, Diarrhea, Constipation, Melena, Hematochezia, Other Symptoms Musculoskeletal: Denies: Neck Pain, Back Pain, Shoulder Pain, Arm Pain, Hand Pain, Leg Pain, Foot Pain, Joint Pain, Muscle Pain, Spasms, Other Symptoms Neurological: Denies: Weakness, Numbness, Incoordination, Change in speech, Confusion, Seizures, Other Symptoms Objective Physical Examination General Exam: Positive: Alert Neck Exam: Positive: Supple Chest Exam: Positive: Clear to auscultation, Normal air movement Heart Exam: Positive: Rate Normal, Normal S1, Normal S2 Abdomen Exam: Positive: Normal bowel sounds, Soft Extremity Exam: Positive: Other (dressing on bilateral feet up to both knees, leg, present on right foot) Skin Exam: Positive: Nl turgor and temperature Neuro Exam: Positive: Normal Speech Assessment /Plan Problems (1) Diabetic foot infection Status: Acute Problem Text: Diabetic foot ulcer with cellulitis, abscess and maggots and osteomyelitis. MRI of the foot shows OM with cellulitis, abscess, tenosynovitis, tendinopathy. S/p Incision and drainage on 04/02/19. He had an incision and drainage of the lateral and dorsal right foot with resection of the 5th metatarsal. He had resection of the 5th metatarsal for possible osteomyelitis The patient had a repeat debridement. Debridement done of his right foot for yesterday Wound culture growing Enterobacter cloacae and strep agalactiae, anaerobic cultures Discontinue IV Vanco is no evidence of MRSA Bert was DC'd Continue Cefdinir Wound VAC in place on right foot She'll possibly will be discharged home today if the wound where he can be arranged as an outpatient (2) HTN (hypertension) Status: Chronic Problem Text: Hypertension with Hypertensive heart disease. Continue metoprolol. amlodipine , diuretic (3) Diabetes Status: Chronic Problem Text: Diabetes with neuropathy. Carb consistent diet, lispro as per sliding scale Levemir in the Am. FS ac and HS. Sugars acceptable control. (4) HLD (hyperlipidemia) Status: Chronic Problem Text: Dyslipidemia continue statin (5) Osteomyelitis Onset Date: 01/27/2014 Status: Acute Plan/VTE VTE Prophylaxis Ordered?: Yes VS, I&O, 24H, Fishbone Vital Signs/I&O Vital Signs Date Time Temp Pulse Resp B/P (MAP) Pulse Ox O2 Delivery O2 Flow Rate FiO2 04/13/19 08:56 84 140/77 04/13/19 06:00 98.0 18 97 I&O- Last 24 Hours up to 6 AM 04/13/19 06:00 Intake Total 2310 ml Output Total 2350 ml Balance -40 ml Laboratory Data 24H LABS Laboratory Tests 2 04/12/19 11:24: Bedside Glucose (Misc Panel) 226H 04/12/19 17:26: Bedside Glucose (Misc Panel) 239H 04/12/19 21:06: Bedside Glucose (Misc Panel) 264H 04/13/19 05:38: Bedside Glucose (Misc Panel) 153OSWALD GALLARDO MD Apr 13, 2019 10:07
[2019-04-13] MEDS: SILVER SULFADIAZINE 1% CR 50 GM JAR TOP SCH ×2 (12:21→21:00)
[2019-04-13 14:00] VITALS: BP 144/78
--- NOTE | 2019-04-13 15:13 | DS.PDOC ---
Discharge Summary General Date of Admission Apr 01, 2019 at 16:34 Date of Discharge 04/13/19 Attending Physician: OSWALD MCKEON MD Discharge Summary PROCEDURES PERFORMED DURING STAY: None. ADMITTING DIAGNOSES: 1. Diabetic foot infection. DISCHARGE DIAGNOSES: 1. Diabetic foot infection, diabetes mellitus, hypertension, osteomyelitis COMPLICATIONS/CHIEF COMPLAINT: Diabetic Foot Infection. HISTORY OF PRESENT ILLNESS: 63-year-old white male who is being admitted after seeing Dr. Cantu today, having been found to have a deeply infected right diabetic foot with suspected osteomyelitis, foul drainage, erythema, swelling and pain in a foot that has already had forefoot amputations. His past history shows diabetes with peripheral arterial disease and diabetic neuropathy. He has hyperlipidemia, hypertensive heart disease, history of osteomyelitis of both feet. He is undergone transmetatarsal amputation to both feet in the past by Dr. Cantu.. HOSPITAL COURSE: Diabetic foot ulcer with cellulitis, abscess and maggots and osteomyelitis. MRI of the foot shows OM with cellulitis, abscess, tenosynovitis, tendinopathy. S/p Incision and drainage on 04/02/19. He had an incision and drainage of the lateral and dorsal right foot with res ection of the 5th metatarsal. He had resection of the 5th metatarsal for possible osteomyelitis The patient had a repeat debridement. Debridement done of his right foot for yesterday Wound culture growing Enterobacter cloacae and strep agalactiae, anaerobic cultures Discontinue IV Vanco is no evidence of MRSA Zosyn was DC'd Cefdinir started and will continue as an outpatient Wound VAC in place on right foot She'll possibly will be discharged home today if the wound where he can be arranged as an outpatient Hypertension with Hypertensive heart disease. Continue metoprolol. amlodipine , diuretic Diabetes with neuropathy. Carb consistent diet, lispro as per sliding scale Continued Levemir as per home dosage orders . DISCHARGE MEDICATIONS: Please see below. ALLERGIES: Please see below. PHYSICAL EXAMINATION ON DISCHARGE: VITAL SIGNS: Please see below. GENERAL: Awake, alert, oriented, in no apparent distress HEENT: PERRLA. Extraocular muscles intact NECK: Supple CARDIOVASCULAR EXAMINATION: S1, S2, regular] RESPIRATORY EXAMINATION: Clear to A&P ABDOMINAL EXAMINATION: , Soft, nontender, bowel sound present, no organomegaly EXTREMITIES: Bilateral lower extremity dressing with wound VAC on the right foot SKIN: As above NEUROLOGICAL EXAMINATION: . No focal motor or sensory deficit PSYCHIATRIC EXAMINATION: Normal LABORATORY DATA: Please see below. IMAGING: Right foot x-ray:History: Abscess right foot, three view status post resection fifth metatarsal. Comparison study is from April 01, 2019. Findings: A the left fifth metatarsal has been resected at the mid shaft level. Previous transmetatarsal amputations have been performed of the other digits. There is soft tissue swelling and overlying dressing. There are a few bubbles of soft tissue gas in the dorsal soft tissues of the midfoot unchanged. Vascular calcification and heel spurs are again noted. There is a orthopedic pin device in the distal tibia. PROGNOSIS: Good ACTIVITY: As tolerated. DIET: Carbohydrate consistent diet DISCHARGE PLAN: Follow with podiatry once discharged from the hospital DISPOSITION: . Home DISCHARGE INSTRUCTIONS: 1. As per discharge instructions. ITEMS TO FOLLOWUP ON ON OUTPATIENT: 1. Follow with podiatry as an outpatient. DISCHARGE CONDITION: Stable. TIME SPENT ON DISCHARGE: 40 minutes. Vital Signs/I&Os Vital Signs Date Time Temp Pulse Resp B/P (MAP) Pulse Ox O2 Delivery O2 Flow Rate FiO2 04/13/19 14:00 98.6 82 20 144/78 (100) 98 I&O- Last 24 Hours up to 6 AM 04/13/19 06:00 Intake Total 2310 ml Output Total 2350 ml Balance -40 ml Laboratory Data Labs 24H Laboratory Tests 2 04/12/19 17:26: Bedside Glucose (Misc Panel) 239H 04/12/19 21:06: Bedside Glucose (Misc Panel) 264H 04/13/19 05:38: Bedside Glucose (Misc Panel) 153H 04/13/19 11:38: Bedside Glucose (Misc Panel) 176H FSBS Laboratory Tests Test 04/12/19 17:26 04/12/19 21:06 04/13/19 05:38 04/13/19 11:38 Range/Units Bedside Glucose (Misc Panel) 239 264 153 176 80-115 MG/DL Discharge Medications Scheduled Amlodipine Besylate (Amlodipine Besylate) 10 Mg Tab, 10 MG PO DAILY, (Reported) Atorvastatin Calcium (Atorvastatin Calcium) 20 Mg Tablet, 10 MG PO DAILY, (Reported) Cholecalciferol (Vitamin D3) (Vitamin D3) 1,000 Unit Cap, 1,000 UNIT PO DAILY, (Reported) Clopidogrel Bisulfate (Clopidogrel) 75 Mg Tab, 75 MG PO DAILY, (Reported) Insulin Glargine (Lantus) 1 Units/0.01 Ml Susp, 20 UNITS SC QAM, (Reported) hold for glucose less than 200 Metformin HCl (Metformin HCl) 1,000 Mg Tab, 1,000 MG PO BID, (Reported) hold for glucose less than 200 Metoprolol Succinate (Metoprolol Succinate) 100 Mg Tab.er.24h, 50 MG PO QHS, (Reported) Miscellaneous Medications [Pt Comment] , (Reported) PT STATES HE HASN'T TAKEN ANY MEDICATIONS BUT THE LANTUS IN 3 WEEKS Allergies Coded Allergies: No Known Allergies (Unverified , 04/01/19) OSWALD MCKEON MD Apr 13, 2019 15:13
[2019-04-13 22:00] VITALS: BP 140/75
[2019-04-14 02:00] VITALS: BP 158/80
[2019-04-14 06:00] VITALS: BP 150/92
[2019-04-14] MEDS: metroNIDAZOLE (FLAGYL) 500 MG TAB PO SCH (06:50)
[2019-04-14] MEDS: HumaLOG INSULIN (NovoLOG) PER UNIT SC SCH ×2 (07:30→12:09)
[2019-04-14] MEDS: MOM 30ML SUSPENSION UDC PO SCH ×2 (08:49→08:50)
[2019-04-14] MEDS: ENOXAPARIN 40 MG/0.4 ML SYRINGE (J1650) SC SCH (08:50)
[2019-04-14 08:51] VITALS: BP 150/92
[2019-04-14] MEDS: CLOPIDOGREL 75 MG TAB PO SCH (08:51)
[2019-04-14] MEDS: amLODIPine 5 MG TAB PO SCH (08:51)
[2019-04-14] MEDS: METOPROLOL SUCC (TopROL XL) 50MG **XL** TAB PO SCH (08:51)
[2019-04-14] MEDS: ATORVASTATIN 10 MG TAB PO SCH (08:51)
[2019-04-14] MEDS: LEVEMIR (INSULIN DETEMIR) 1 UNITS/0.01ML SC SCH (08:51)
[2019-04-14] MEDS: CEFDINIR 300 MG CAP (OMNICEF) PO SCH (08:52)
[2019-04-14] MEDS: LACTIC ACID 12% LOTION 225 GM BTL TOP SCH (08:52)
[2019-04-14] MEDS: SENOKOT S TAB PO SCH (08:52)
[2019-04-14] MEDS: SILVER SULFADIAZINE 1% CR 50 GM JAR TOP SCH (08:52)
--- NOTE | 2019-04-14 08:56 | IPN ---
DATE: 04/13/2019 Mr. Mccray seems to be doing great. He has no complaints. He just wants to go home tomorrow and is going home with or without the wound VAC. He would like to have some Tubigrip sent with him home so he can have an extra pair to use. LABORATORY DATA: White count is 7.9, hemoglobin 10.7, hematocrit 32.3, platelets 482, 67% neutrophils, 22% lymphocytes. Sodium 139, potassium 3.6, chloride 104, bicarb 27, BUN 17, creatinine 1.22, glucose 197, calcium 9.2, CRP 1.9. CRP is down from 13.7. Wound culture of the right foot had Enterobacter cloacae, Streptococcus group G Streptococcus oralis, Proteus and anaerobic cocci along with Porphyromonas. MEDICATIONS: Cefdinir 600 mg by mouth daily and metronidazole 500 mg by mouth every 8 hours. IMPRESSION: Deep tissue abscess of the right foot with polymicrobial infection. PLAN: Discharged home tomorrow with wound VAC, cefdinir 600 mg daily and metronidazole for 2-week course. I did discuss the case with his nurse who will give him Tubigrip to help with lymphedema and the wound VAC will be changed three times a week by [facility].
--- NOTE | 2019-04-14 11:45 | IPNPDOC ---
Text Note Date of Service The patient was seen on 04/14/19. NOTE Subjective: Patient was seen and examined at the bedside. Trend. Patient denies any chest pain, shortness breath or palpitations. He denies abdominal pain, nausea, vomiting, diarrhea, or urinary discomfort. Objective: Vitals (See below) General: Lying in bed, no acute distress, comfortable, AAOx3 HEENT: NC, AT CVS: +S1S2 Lungs: Fair air entry b/l, -w/r/r Abdomen: Soft, ND, NT Extremities: - Edema, - Calf tenderness, R foot in wound vac Assessment and plan: Diabetic foot infection / Osteomyelitis - s/p intervention with Dr. Cantu on 04/02, 04/06 - Wound cultures with multiple species; Enterobacter, streptococcus group G, streptococcus paralysis, Proteus vulgaris, anaerobic cocci - c/w Cefdinir and Metronidazole; s/p Vancomycin and Zosyn - c/w wound vac - Dr. Cantu and Dr. Egan on consultation - appreciate their input Peripheral vascular disease - c/w Plavix HTN - BP moderately controlled - c/w Amlodipine and Metoprolol IDDM2 - c/w ISS and Levemir DLP - c/w Atorvastatin DVT prophylaxis - c/w Lovenox Disposition: - Awaiting wound vac for home VS,Fishbone, I+O VS, Fishbone, I+O Vital Signs Date Time Temp Pulse Resp B/P (MAP) Pulse Ox O2 Delivery O2 Flow Rate FiO2 04/14/19 08:51 76 150/92 04/14/19 06:00 98.8 18 99 I&O- Last 24 Hours up to 6 AM 04/14/19 05:59 Intake Total 1740 ml Output Total 800 ml Balance 940 ml GISELA CORNEJO MD Apr 14, 2019 11:45
--- NOTE | 2019-04-14 12:23 | DS.PDOC ---
Discharge Summary General Date of Admission Apr 01, 2019 at 16:34 Date of Discharge 04/14/2019 Discharge Summary PROCEDURES PERFORMED DURING STAY: 04/02: Resection of osteomyelitic bone fifth metatarsal right foot, incision and drainage of dorsal medial and plantar abscess right foot with Dr. Cantu 04/06: Excisional debridement including tendon, skin and subcutaneous tissues right foot with delayed primary closure over antibiotic beads right foot with Dr. Cantu ADMITTING DIAGNOSES / DISCHARGE DIAGNOSES: Diabetic foot infection / Osteomyelitis Peripheral vascular disease HTN IDDM2 DLP DVT prophylaxis COMPLICATIONS/CHIEF COMPLAINT: Diabetic Foot Infection. HISTORY OF PRESENT ILLNESS: Patient is a 63-year-old male with a past medical history of diabetes, peripheral arterial disease, neuropathy, dyslipidemia, hypertensive heart disease, history of also mild his of both feet who presented to [facility] from Dr. Cantu's office after finding that he had a deeply infected right foot ulcer, suspected of being osteomyelitis. Patient was admitted to the hospital service for further evaluation and treatment and Dr. Cantu and Dr. Egan were called on consultation. HOSPITAL COURSE: Diabetic foot infection / Osteomyelitis - s/p intervention with Dr. Cantu on 04/02, 04/06 - Wound cultures with multiple species; Enterobacter, streptococcus group G, streptococcus paralysis, Proteus vulgaris, anaerobic cocci - c/w Cefdinir and Metronidazole; s/p Vancomycin and Zosyn - c/w wound vac - Dr. Cantu and Dr. Egan on consultation - appreciate their input Peripheral vascular disease - c/w Plavix HTN - BP moderately controlled - c/w Amlodipine and Metoprolol IDDM2 - c/w ISS and Levemir DLP - c/w Atorvastatin DVT prophylaxis - c/w Lovenox DISCHARGE MEDICATIONS: Please see below. ALLERGIES: Please see below. PHYSICAL EXAMINATION ON DISCHARGE: Vitals (See below) General: Lying in bed, no acute distress, comfortable, AAOx3 HEENT: NC, AT CVS: +S1S2 Lungs: Fair air entry b/l, -w/r/r Abdomen: Soft, ND, NT Extremities: - Edema, - Calf tenderness, R foot in wound vac LABORATORY DATA: Please see below. ACTIVITY: [As tolerated]. DISCHARGE PLAN: Follow-up with Dr. Egan and Dr. Cantu within 7 days Remain compliant with treatment plan and medications Return to the ER if you experience any problems DISPOSITION: Home with services DISCHARGE CONDITION: [Stable]. TIME SPENT ON DISCHARGE: 35 minutes Vital Signs/I&Os Vital Signs Date Time Temp Pulse Resp B/P (MAP) Pulse Ox O2 Delivery O2 Flow Rate FiO2 04/14/19 08:51 76 150/92 04/14/19 06:00 98.8 18 99 I&O- Last 24 Hours up to 6 AM 04/14/19 06:00 Intake Total 1290 ml Output Total 0 ml Balance 1290 ml Laboratory Data Labs 24H Laboratory Tests 2 04/13/19 16:26: Bedside Glucose (Misc Panel) 140H 04/13/19 21:31: Bedside Glucose (Misc Panel) 239H 04/14/19 06:38: Bedside Glucose (Misc Panel) 149H 04/14/19 12:02: Bedside Glucose (Misc Panel) 232H FSBS Laboratory Tests Test 04/13/19 16:26 04/13/19 21:31 04/14/19 06:38 04/14/19 12:02 Range/Units Bedside Glucose (Misc Panel) 140 239 149 232 80-115 MG/DL Discharge Medications Scheduled Amlodipine Besylate (Amlodipine Besylate) 10 Mg Tab, 10 MG PO DAILY, (Reported) Atorvastatin Calcium (Atorvastatin Calcium) 20 Mg Tablet, 10 MG PO DAILY, (Reported) Cholecalciferol (Vitamin D3) (Vitamin D3) 1,000 Unit Cap, 1,000 UNIT PO DAILY, (Reported) Clopidogrel Bisulfate (Clopidogrel) 75 Mg Tab, 75 MG PO DAILY, (Reported) Insulin Glargine (Lantus) 1 Units/0.01 Ml Susp, 20 UNITS SC QAM, (Reported) hold for glucose less than 200 Metformin HCl (Metformin HCl) 1,000 Mg Tab, 1,000 MG PO BID, (Reported) hold for glucose less than 200 Metoprolol Succinate (Metoprolol Succinate) 100 Mg Tab.er.24h, 50 MG PO QHS, (Reported) Miscellaneous Medications [Pt Comment] , (Reported) PT STATES HE HASN'T TAKEN ANY MEDICATIONS BUT THE LANTUS IN 3 WEEKS Allergies Coded Allergies: No Known Allergies (Unverified , 04/01/19) GISELA CORNEJO MD Apr 14, 2019 12:23
[2019-04-14] MEDS ORDERED: FLAG500T PO (12:25)
[2019-04-14] MEDS ORDERED: CEFD300CAP PO (12:25)
== END 2019-04-14 14:09 | disposition home health service (06) | DRG 317 ==
LOC: M ED 14:57 → M ED INP 16:34 → M MS5PR 20:25
PROVIDERS: ADMIT Family Medicine; ATTEND Internal Medicine
PROC: 0QBN0ZX Excision of Right Metatarsal, Open Approach, Diagnostic (ICD-10-PCS; 2019-04-02)
PROC: 0LBV0ZZ Excision of Right Foot Tendon, Open Approach (ICD-10-PCS; principal; 2019-04-06 18:00)
DX: E11.69 Type 2 diabetes mellitus with other specified complication (principal); E11.40 Type 2 diabetes mellitus with diabetic neuropathy, unspecified; E11.621 Type 2 diabetes mellitus with foot ulcer; I11.9 Hypertensive heart disease without heart failure; M86.171 Other acute osteomyelitis, right ankle and foot; E11.51 Type 2 diabetes mellitus with diabetic peripheral angiopathy without gangrene; B87.0 Cutaneous myiasis; L97.519 Non-pressure chronic ulcer of other part of right foot with unspecified severity; L03.116 Cellulitis of left lower limb; E78.5 Hyperlipidemia, unspecified; K59.00 Constipation, unspecified; R05 Cough; L02.611 Cutaneous abscess of right foot; Z79.4 Long term (current) use of insulin; Z79.02 Long term (current) use of antithrombotics/antiplatelets; Z79.899 Other long term (current) drug therapy; Z89.421 Acquired absence of other right toe(s); Z89.422 Acquired absence of other left toe(s)

== ENCOUNTER → 2023-04-04 | Outpatient (REF) | payer OTHER, MEDICAID ==
[~2023-04-04] MED LIST changes: -AMLO10TA5 PO; +AMLO1TAB25 PO; +ATOR1TAB21 PO; +CEFD300CAP PO; +CLOP75TA99 PO; +FLAG500T PO; -LISI-538 PO; +LISI10TA22 PO; -LISI10TA4 PO; +LISI20TA33 PO; +METO1TAB33 PO; -PLAV1TAB2 PO; +PT COMMENT
== END ==
LOC: M LAB REF 17:00
PROVIDERS: ATTEND Podiatrist
DX: L03.115 Cellulitis of right lower limb (principal)

== ENCOUNTER 2023-04-25 11:47 | Inpatient (IN) | payer OTHER, MEDICAID ==
[~2023-04-25] VITALS: Ht 182.9 cm; Wt 93.3 kg
[~2023-04-25 11:47] MED LIST changes: +CURRENT HEIGHT AND WEIGHT NEEDED ON PATIENT XX SCH
[2023-04-25] MEDS ORDERED: MOM 30ML SUSPENSION UDC PO PRN (13:15)
[2023-04-25] MEDS ORDERED: ACETAMINOPHEN TAB 650MG DOSE (2X325MG) PO PRN (13:15)
[2023-04-25 14:30] VITALS: BP 168/70; TEMP 98.9; O2SAT 97
[2023-04-25 14:35] LABS: BASO % 0.4 % (0.0-1.0); EOS % 0.1 % (0.0-3.0); HEMATOCRIT 40.9 % (42.0-52.0); LYMPH # 0.7 10^3/uL (1.5-5.0); LYMPH % 6.3 % (24.0-44.0); MEAN CORPUSCULAR HEMOGLOBIN 30.3 pg (27.0-33.0); MEAN CORPUSCULAR HGB CONC 34.2 g/dl (32.0-36.5); MEAN CORPUSCULAR VOLUME 88.5 fl (80.0-96.0); MONO # 0.8 10^3/uL (0.0-0.8); MONO % 7.9 % (2.0-8.0); NEUTROPHILS # 8.9 10^3/uL (1.5-8.5); NEUTROPHILS % 84.7 % (36.0-66.0); PLATELET COUNT, AUTOMATED 338 10^3/uL (150-450); RED BLOOD COUNT 4.62 10^6/uL (4.30-6.10); WHITE BLOOD COUNT 10.5 10^3/uL (4.0-10.0)
[2023-04-25 14:48] LABS: INR 1.17; PROTHROMBIN TIME 14.6 SECONDS (12.5-14.5)
[2023-04-25 15:05] LABS: ALKALINE PHOSPHATASE 101 U/L (46-116); ALT/SGPT 26 U/L (7.0-40); AST/SGOT 24 U/L (<34); BLOOD UREA NITROGEN 17 MG/DL (9-23); CALCIUM LEVEL 8.8 MG/DL (8.3-10.6); CARBON DIOXIDE LEVEL 25 MMOL/L (20-31); CHLORIDE LEVEL 93 MMOL/L (98-107); CREATININE FOR GFR 0.87 MG/DL (0.70-1.30); GLOMERULAR FILTRATION RATE > 60.0 (>49); GLUCOSE, FASTING 381 MG/DL (74-106); POTASSIUM SERUM 4.3 MMOL/L (3.5-5.1); SODIUM LEVEL 128 MMOL/L (136-145); TOTAL PROTEIN 7.6 G/DL (5.7-8.2)
[2023-04-25 15:16] LABS: PROCALCITONIN 0.48 ng/ml
[2023-04-25] MEDS ORDERED: GLUCOSE 4GM CHEW TABLET PO PRN (15:20)
[2023-04-25] MEDS ORDERED: DEXTROSE 50% 50ML SYRINGE IV PRN (15:20)
[2023-04-25] MEDS ORDERED: GLUCAGON INJ 1MG VIAL SC PRN (15:20)
[2023-04-25] MEDS ORDERED: ONDANSETRON 4MG 2ML VIAL IV PRN ×2 (15:25→18:30)
[2023-04-25] MEDS ORDERED: HumuLIN R (REGULAR) INSULIN (NovoLIN R) **100U/ML** PER UNIT SC ONE (15:30)
[2023-04-25] MEDS ORDERED: NS 1,000 ML IV ONE (15:30)
[2023-04-25] MEDS ORDERED: fentaNYL 100 MCG/2 ML INJECTION As Ordered ONE (16:43)
[2023-04-25] MEDS ORDERED: LIDOCAINE 2% 100MG/5ML SDV (FOR ANES.) As Ordered ONE (16:43)
[2023-04-25] MEDS ORDERED: propofoL 500 MG/50 ML VIAL As Ordered ONE (16:43)
[2023-04-25] MEDS ORDERED: PIPERACILLIN/TAZOBACTAM SOD 4.5 GM in D5W MINI-BAG PLUS 50 ML IV SCH (17:00)
[2023-04-25] MEDS ORDERED: LIDOCAINE 2% MDV 20ML VIAL As Ordered ONE (17:16)
[2023-04-25] MEDS ORDERED: GENTAMICIN SULF 80MG/2ML VIAL As Ordered ONE ×2 (17:16→17:34)
[2023-04-25] MEDS ORDERED: MED REC IN PROGRESS XX SCH (17:20)
[2023-04-25] MEDS ORDERED: INSULIN LISPRO (NovoLOG) PER UNIT SC ONE ×2 (17:20→18:45)
[2023-04-25] MEDS ORDERED: INSULIN LISPRO (NovoLOG) PER UNIT SC SCH ×2 (17:30→21:00)
[2023-04-25] MEDS ORDERED: MIDAZOLAM INJ 2MG/2ML VIAL As Ordered ONE (18:14)
[2023-04-25] MEDS ORDERED: NS 1,000 ML IV SCH (18:30)
[2023-04-25] MEDS ORDERED: oxyCODONE 5MG TAB PO PRN (18:30)
[2023-04-25] MEDS ORDERED: fentaNYL 100 MCG/2 ML INJECTION IV PRN (18:30)
[2023-04-25] MEDS ORDERED: INSULIN LISPRO (NovoLOG) PER UNIT SC PRN (18:30)
[2023-04-25] MEDS ORDERED: MORPHINE 2 MG/ML 1ML VIAL IV PRN (18:30)
[2023-04-25 18:37] LABS: HEMOGLOBIN A1c 10.5 % (4.0-6.0)
[2023-04-25 19:05] VITALS: BP 117/67; O2SAT 94
[2023-04-25] MEDS ORDERED: SILV50CR TOP (19:22)
[2023-04-25] MEDS ORDERED: JARD1TAB3 PO (19:22)
[2023-04-25] MEDS ORDERED: CHOL100013 PO (19:26)
[2023-04-25] MEDS ORDERED: VITA100054 PO (19:26)
[2023-04-25] MEDS ORDERED: HOME MED LIST COMPLETE! XX SCH (19:30)
[2023-04-25] MEDS: DOCUSATE SODIUM 100MG CAPSULE PO SCH (20:20)
[2023-04-25] MEDS: LACTIC ACID 12% LOTION 225 GM BTL EXT SCH (20:21)
[2023-04-25] MEDS: INSULIN LISPRO (NovoLOG) PER UNIT SC SCH (20:22)
[2023-04-25] MEDS: NS 1,000 ML IV SCH (20:23)
[2023-04-25 20:42] VITALS: BP 114/61; TEMP 98.1; O2SAT 95
[2023-04-25] MEDS: PIPERACILLIN/TAZOBACTAM SOD 4.5 GM in D5W MINI-BAG PLUS 50 ML IV SCH (21:02)
[2023-04-26] MEDS: INSULIN LISPRO (NovoLOG) PER UNIT SC SCH ×5 (00:25→23:50)
[2023-04-26] MEDS: NS 1,000 ML IV SCH ×3 (00:28→20:09)
[2023-04-26 00:30] VITALS: BP 163/77; TEMP 98.2; O2SAT 97
[2023-04-26] MEDS: PIPERACILLIN/TAZOBACTAM SOD 4.5 GM in D5W MINI-BAG PLUS 50 ML IV SCH ×4 (02:30→20:10)
[2023-04-26 04:43] VITALS: BP 178/82; TEMP 98.6; O2SAT 95
[2023-04-26 06:13] LABS: BASO % 0.4 % (0.0-1.0); EOS # 0.1 10^3/uL (0.0-0.5); EOS % 1.1 % (0.0-3.0); HEMATOCRIT 32.6 % (42.0-52.0); LYMPH # 1.2 10^3/uL (1.5-5.0); MEAN CORPUSCULAR HEMOGLOBIN 29.8 pg (27.0-33.0); MEAN CORPUSCULAR HGB CONC 33.4 g/dl (32.0-36.5); MEAN CORPUSCULAR VOLUME 89.1 fl (80.0-96.0); MONO % 14.2 % (2.0-8.0); NEUTROPHILS # 4.8 10^3/uL (1.5-8.5); NEUTROPHILS % 66.7 % (36.0-66.0); PLATELET COUNT, AUTOMATED 280 10^3/uL (150-450); RED BLOOD COUNT 3.66 10^6/uL (4.30-6.10); WHITE BLOOD COUNT 7.2 10^3/uL (4.0-10.0)
[2023-04-26 06:16] LABS: HEMOGLOBIN 10.9 g/dl (13.5-17.5)
[2023-04-26 06:40] LABS: BLOOD UREA NITROGEN 19 MG/DL (9-23); CALCIUM LEVEL 7.4 MG/DL (8.3-10.6); CARBON DIOXIDE LEVEL 23 MMOL/L (20-31); CHLORIDE LEVEL 105 MMOL/L (98-107); CREATININE FOR GFR 1.04 MG/DL (0.70-1.30); GLOMERULAR FILTRATION RATE > 60.0 (>49); GLUCOSE, FASTING 186 MG/DL (74-106); POTASSIUM SERUM 3.6 MMOL/L (3.5-5.1); SODIUM LEVEL 138 MMOL/L (136-145)
[2023-04-26 07:19] VITALS: BP 156/76; TEMP 98; O2SAT 96
[2023-04-26] MEDS: ENOXAPARIN 40MG/0.4ML SYRINGE (J1650 PER 10MG) SC SCH (10:18)
[2023-04-26] MEDS: DOCUSATE SODIUM 100MG CAPSULE PO SCH ×2 (10:18→20:09)
[2023-04-26] MEDS: LACTIC ACID 12% LOTION 225 GM BTL EXT SCH ×2 (10:19→20:10)
[2023-04-26 11:34] VITALS: BP 140/67; TEMP 97.9; O2SAT 97
[2023-04-26] MEDS: LEVEMIR (INSULIN DETEMIR) 1 UNITS/0.01ML SC SCH (13:02)
[2023-04-26 19:34] VITALS: BP 137/72; TEMP 97.7; O2SAT 92
[2023-04-27] MEDS: PIPERACILLIN/TAZOBACTAM SOD 4.5 GM in D5W MINI-BAG PLUS 50 ML IV SCH ×4 (03:06→20:46)
[2023-04-27 03:30] VITALS: BP 158/80; TEMP 97.5; O2SAT 92
[2023-04-27] MEDS: NS 1,000 ML IV SCH (05:16)
[2023-04-27] MEDS: INSULIN LISPRO (NovoLOG) PER UNIT SC SCH ×4 (05:42→23:53)
[2023-04-27 05:46] LABS: BASO % 0.8 % (0.0-1.0); EOS # 0.2 10^3/uL (0.0-0.5); EOS % 3.8 % (0.0-3.0); HEMATOCRIT 34.1 % (42.0-52.0); HEMOGLOBIN 11.3 g/dl (13.5-17.5); LYMPH # 1.4 10^3/uL (1.5-5.0); MEAN CORPUSCULAR HEMOGLOBIN 29.7 pg (27.0-33.0); MEAN CORPUSCULAR HGB CONC 33.1 g/dl (32.0-36.5); MEAN CORPUSCULAR VOLUME 89.7 fl (80.0-96.0); MONO # 0.7 10^3/uL (0.0-0.8); MONO % 13.3 % (2.0-8.0); NEUTROPHILS # 2.7 10^3/uL (1.5-8.5); NEUTROPHILS % 53.3 % (36.0-66.0); PLATELET COUNT, AUTOMATED 306 10^3/uL (150-450)
[2023-04-27 06:08] LABS: BLOOD UREA NITROGEN 14 MG/DL (9-23); CALCIUM LEVEL 7.7 MG/DL (8.3-10.6); CARBON DIOXIDE LEVEL 23 MMOL/L (20-31); CHLORIDE LEVEL 108 MMOL/L (98-107); CREATININE FOR GFR 0.68 MG/DL (0.70-1.30); GLOMERULAR FILTRATION RATE > 60.0 (>49); GLUCOSE, FASTING 198 MG/DL (74-106); POTASSIUM SERUM 3.6 MMOL/L (3.5-5.1); SODIUM LEVEL 140 MMOL/L (136-145)
[2023-04-27 06:13] LABS: PROCALCITONIN 0.27 ng/ml
[2023-04-27 07:48] VITALS: BP 158/88; TEMP 97.9; O2SAT 97
[2023-04-27] MEDS: MOM 30ML SUSPENSION UDC PO SCH (09:40)
[2023-04-27] MEDS: SENOKOT S TAB PO SCH ×2 (09:40→20:46)
[2023-04-27] MEDS: ENOXAPARIN 40MG/0.4ML SYRINGE (J1650 PER 10MG) SC SCH (09:41)
[2023-04-27] MEDS: LEVEMIR (INSULIN DETEMIR) 1 UNITS/0.01ML SC SCH (09:41)
[2023-04-27] MEDS: LACTIC ACID 12% LOTION 225 GM BTL EXT SCH ×2 (09:41→20:46)
[2023-04-27] MEDS: CLOPIDOGREL 75 MG TAB PO SCH (12:13)
[2023-04-27] MEDS: ATORVASTATIN 20 MG TAB PO SCH (12:13)
[2023-04-27] MEDS ORDERED: LEVEMIR (INSULIN DETEMIR) 1 UNITS/0.01ML SC ONE (14:40)
[2023-04-27 16:00] VITALS: BP 135/78; TEMP 98; O2SAT 96
[2023-04-27 20:00] VITALS: BP 137/75; TEMP 97.3; O2SAT 97
[2023-04-27] MEDS: METOPROLOL SUCC (TopROL XL) 100MG *XL* TAB PO SCH (20:46)
[2023-04-28] MEDS: PIPERACILLIN/TAZOBACTAM SOD 4.5 GM in D5W MINI-BAG PLUS 50 ML IV SCH ×4 (03:10→21:52)
[2023-04-28 03:49] VITALS: BP 142/78; TEMP 96.8; O2SAT 97
[2023-04-28 04:59] LABS: BASO % 0.5 % (0.0-1.0); EOS # 0.2 10^3/uL (0.0-0.5); EOS % 3.8 % (0.0-3.0); HEMATOCRIT 35.1 % (42.0-52.0); HEMOGLOBIN 11.6 g/dl (13.5-17.5); LYMPH # 1.5 10^3/uL (1.5-5.0); LYMPH % 25.5 % (24.0-44.0); MEAN CORPUSCULAR HEMOGLOBIN 29.5 pg (27.0-33.0); MEAN CORPUSCULAR VOLUME 89.3 fl (80.0-96.0); MONO # 0.6 10^3/uL (0.0-0.8); MONO % 9.5 % (2.0-8.0); NEUTROPHILS # 3.6 10^3/uL (1.5-8.5); NEUTROPHILS % 60.2 % (36.0-66.0); PLATELET COUNT, AUTOMATED 360 10^3/uL (150-450); RED BLOOD COUNT 3.93 10^6/uL (4.30-6.10)
[2023-04-28 05:30] LABS: BLOOD UREA NITROGEN 11 MG/DL (9-23); CALCIUM LEVEL 7.9 MG/DL (8.3-10.6); CARBON DIOXIDE LEVEL 24 MMOL/L (20-31); CHLORIDE LEVEL 107 MMOL/L (98-107); CREATININE FOR GFR 0.58 MG/DL (0.70-1.30); GLOMERULAR FILTRATION RATE > 60.0 (>49); GLUCOSE, FASTING 181 MG/DL (74-106); POTASSIUM SERUM 3.8 MMOL/L (3.5-5.1); SODIUM LEVEL 140 MMOL/L (136-145)
[2023-04-28] MEDS: INSULIN LISPRO (NovoLOG) PER UNIT SC SCH ×4 (06:12→21:52)
[2023-04-28 08:19] VITALS: BP 140/74; TEMP 97.9; O2SAT 99
[2023-04-28] MEDS: ENOXAPARIN 40MG/0.4ML SYRINGE (J1650 PER 10MG) SC SCH (08:21)
[2023-04-28] MEDS: VITAMIN D 1,000 INTERNATIONAL UNITS TABLET PO SCH (08:22)
[2023-04-28] MEDS: CLOPIDOGREL 75 MG TAB PO SCH (08:22)
[2023-04-28] MEDS: MOM 30ML SUSPENSION UDC PO SCH (08:22)
[2023-04-28] MEDS: LEVEMIR (INSULIN DETEMIR) 1 UNITS/0.01ML SC SCH (08:22)
[2023-04-28] MEDS: SENOKOT S TAB PO SCH ×2 (08:22→22:24)
[2023-04-28] MEDS: ATORVASTATIN 20 MG TAB PO SCH (08:22)
[2023-04-28] MEDS: LACTIC ACID 12% LOTION 225 GM BTL EXT SCH ×2 (08:25→21:52)
[2023-04-28 10:00] VITALS: BP 158/76; TEMP 97.2; O2SAT 99
[2023-04-28] MEDS ORDERED: MOM 30ML SUSPENSION UDC PO PRN (10:20)
[2023-04-28] MEDS ORDERED: INSULIN LISPRO (NovoLOG) PER UNIT SC SCH (12:00)
[2023-04-28 14:01] VITALS: BP 159/87; TEMP 98.2; O2SAT 97
[2023-04-28 20:54] VITALS: BP 149/84; TEMP 97.7; O2SAT 96
[2023-04-28] MEDS: METOPROLOL SUCC (TopROL XL) 100MG *XL* TAB PO SCH (21:51)
[2023-04-29] MEDS: PIPERACILLIN/TAZOBACTAM SOD 4.5 GM in D5W MINI-BAG PLUS 50 ML IV SCH ×3 (03:22→15:17)
[2023-04-29 06:43] VITALS: BP 140/63; TEMP 97.5; O2SAT 96
[2023-04-29 07:04] LABS: BASO % 0.5 % (0.0-1.0); EOS # 0.2 10^3/uL (0.0-0.5); EOS % 3.6 % (0.0-3.0); HEMATOCRIT 32.4 % (42.0-52.0); HEMOGLOBIN 11.1 g/dl (13.5-17.5); LYMPH # 1.8 10^3/uL (1.5-5.0); LYMPH % 26.8 % (24.0-44.0); MEAN CORPUSCULAR HEMOGLOBIN 30.8 pg (27.0-33.0); MEAN CORPUSCULAR HGB CONC 34.3 g/dl (32.0-36.5); MONO # 0.6 10^3/uL (0.0-0.8); MONO % 8.6 % (2.0-8.0); NEUTROPHILS # 3.9 10^3/uL (1.5-8.5); NEUTROPHILS % 59.6 % (36.0-66.0); PLATELET COUNT, AUTOMATED 354 10^3/uL (150-450); WHITE BLOOD COUNT 6.6 10^3/uL (4.0-10.0)
[2023-04-29 07:41] LABS: BLOOD UREA NITROGEN 10 MG/DL (9-23); CALCIUM LEVEL 8.2 MG/DL (8.3-10.6); CARBON DIOXIDE LEVEL 28 MMOL/L (20-31); CHLORIDE LEVEL 104 MMOL/L (98-107); CREATININE FOR GFR 0.64 MG/DL (0.70-1.30); GLOMERULAR FILTRATION RATE > 60.0 (>49); GLUCOSE, FASTING 203 MG/DL (74-106); SODIUM LEVEL 138 MMOL/L (136-145)
[2023-04-29] MEDS: SENOKOT S TAB PO SCH ×3 (09:00→22:17)
[2023-04-29] MEDS: CLOPIDOGREL 75 MG TAB PO SCH (09:12)
[2023-04-29] MEDS: ATORVASTATIN 20 MG TAB PO SCH (09:12)
[2023-04-29] MEDS: VITAMIN D 1,000 INTERNATIONAL UNITS TABLET PO SCH (09:12)
[2023-04-29] MEDS: INSULIN LISPRO (NovoLOG) PER UNIT SC SCH ×4 (09:14→22:10)
[2023-04-29] MEDS: LEVEMIR (INSULIN DETEMIR) 1 UNITS/0.01ML SC SCH (09:15)
[2023-04-29] MEDS: ENOXAPARIN 40MG/0.4ML SYRINGE (J1650 PER 10MG) SC SCH (09:15)
[2023-04-29] MEDS: LACTIC ACID 12% LOTION 225 GM BTL EXT SCH ×2 (09:16→22:16)
[2023-04-29 14:29] VITALS: BP 129/76; TEMP 96.5; O2SAT 97
[2023-04-29 21:14] VITALS: BP 149/86; TEMP 97.5; O2SAT 98
[2023-04-29] MEDS: LevoFLOXacin 750 MG TABLET PO SCH (22:10)
[2023-04-29] MEDS: METOPROLOL SUCC (TopROL XL) 100MG *XL* TAB PO SCH (22:11)
[2023-04-30 06:59] VITALS: BP 149/85; TEMP 97.4; O2SAT 96
[2023-04-30 07:40] LABS: BASO % 0.6 % (0.0-1.0); EOS # 0.2 10^3/uL (0.0-0.5); EOS % 3.2 % (0.0-3.0); HEMATOCRIT 35.4 % (42.0-52.0); HEMOGLOBIN 11.6 g/dl (13.5-17.5); LYMPH # 1.5 10^3/uL (1.5-5.0); LYMPH % 23.1 % (24.0-44.0); MEAN CORPUSCULAR HGB CONC 32.8 g/dl (32.0-36.5); MEAN CORPUSCULAR VOLUME 91.5 fl (80.0-96.0); MONO # 0.6 10^3/uL (0.0-0.8); MONO % 8.5 % (2.0-8.0); NEUTROPHILS # 4.2 10^3/uL (1.5-8.5); NEUTROPHILS % 63.5 % (36.0-66.0); PLATELET COUNT, AUTOMATED 363 10^3/uL (150-450); RED BLOOD COUNT 3.87 10^6/uL (4.30-6.10); WHITE BLOOD COUNT 6.6 10^3/uL (4.0-10.0)
[2023-04-30 08:02] LABS: BLOOD UREA NITROGEN 12 MG/DL (9-23); CALCIUM LEVEL 8.4 MG/DL (8.3-10.6); CARBON DIOXIDE LEVEL 29 MMOL/L (20-31); CHLORIDE LEVEL 101 MMOL/L (98-107); CREATININE FOR GFR 0.63 MG/DL (0.70-1.30); GLOMERULAR FILTRATION RATE > 60.0 (>49); GLUCOSE, FASTING 244 MG/DL (74-106); POTASSIUM SERUM 4.4 MMOL/L (3.5-5.1); SODIUM LEVEL 136 MMOL/L (136-145)
[2023-04-30] MEDS: LACTOBACILLUS ACIDOPHILUS CAP (BACID) PO SCH (09:00)
[2023-04-30] MEDS: LEVEMIR (INSULIN DETEMIR) 1 UNITS/0.01ML SC SCH (09:00)
[2023-04-30] MEDS: INSULIN LISPRO (NovoLOG) PER UNIT SC SCH ×4 (09:00→21:46)
[2023-04-30] MEDS: CLOPIDOGREL 75 MG TAB PO SCH (09:00)
[2023-04-30] MEDS: ATORVASTATIN 20 MG TAB PO SCH (09:01)
[2023-04-30] MEDS: VITAMIN D 1,000 INTERNATIONAL UNITS TABLET PO SCH (09:01)
[2023-04-30] MEDS: SENOKOT S TAB PO SCH ×2 (09:01→21:46)
[2023-04-30] MEDS: LACTIC ACID 12% LOTION 225 GM BTL EXT SCH ×2 (09:02→21:50)
[2023-04-30] MEDS: ENOXAPARIN 40MG/0.4ML SYRINGE (J1650 PER 10MG) SC SCH (09:02)
[2023-04-30] MEDS ORDERED: RISATAB3 PO (09:58)
[2023-04-30] MEDS ORDERED: LEVO1TAB40 PO (09:58)
[2023-04-30] MEDS: LevoFLOXacin 750 MG TABLET PO SCH (21:46)
[2023-04-30] MEDS: METOPROLOL SUCC (TopROL XL) 100MG *XL* TAB PO SCH (21:48)
[2023-05-01 05:30] VITALS: BP 147/80; TEMP 96.4; O2SAT 94
[2023-05-01] MEDS: CLOPIDOGREL 75 MG TAB PO SCH (08:55)
[2023-05-01 08:57] VITALS: BP 144/78
[2023-05-01] MEDS: SENOKOT S TAB PO SCH (08:58)
[2023-05-01] MEDS: VITAMIN D 1,000 INTERNATIONAL UNITS TABLET PO SCH (08:59)
[2023-05-01] MEDS: ATORVASTATIN 20 MG TAB PO SCH (08:59)
[2023-05-01] MEDS: ENOXAPARIN 40MG/0.4ML SYRINGE (J1650 PER 10MG) SC SCH (09:00)
[2023-05-01] MEDS: LACTOBACILLUS ACIDOPHILUS CAP (BACID) PO SCH (09:00)
[2023-05-01] MEDS: LEVEMIR (INSULIN DETEMIR) 1 UNITS/0.01ML SC SCH (09:01)
[2023-05-01] MEDS: INSULIN LISPRO (NovoLOG) PER UNIT SC SCH ×2 (09:02→12:19)
[2023-05-01] MEDS: LACTIC ACID 12% LOTION 225 GM BTL EXT SCH (09:02)
== END 2023-05-01 16:25 | disposition home health service (06) | DRG 364 ==
LOC: M ED INP 12:09 → M PCU 13:59 → M MS5PR 04-28 09:12
PROVIDERS: ADMIT Student in an Organized Health Care Education/Training Program; ATTEND Internal Medicine
PROC: 0KBV0ZZ Excision of Right Foot Muscle, Open Approach (ICD-10-PCS; principal; 2023-04-25 17:00)
DX: E11.621 Type 2 diabetes mellitus with foot ulcer (principal); E11.40 Type 2 diabetes mellitus with diabetic neuropathy, unspecified; L97.523 Non-pressure chronic ulcer of other part of left foot with necrosis of muscle; E11.51 Type 2 diabetes mellitus with diabetic peripheral angiopathy without gangrene; E11.65 Type 2 diabetes mellitus with hyperglycemia; E78.5 Hyperlipidemia, unspecified; I10 Essential (primary) hypertension; B96.4 Proteus (mirabilis) (morganii) as the cause of diseases classified elsewhere; B95.4 Other streptococcus as the cause of diseases classified elsewhere; B95.2 Enterococcus as the cause of diseases classified elsewhere; K59.00 Constipation, unspecified; E55.9 Vitamin D deficiency, unspecified; B95.61 Methicillin susceptible Staphylococcus aureus infection as the cause of diseases classified elsewhere; Z79.4 Long term (current) use of insulin; Z79.02 Long term (current) use of antithrombotics/antiplatelets; Z79.899 Other long term (current) drug therapy; Z89.421 Acquired absence of other right toe(s); Z89.422 Acquired absence of other left toe(s)

== ENCOUNTER 2023-09-03 12:16 | Inpatient (IN) | payer MEDICAID, MEDICARE, OTHER ==
[~2023-09-03] VITALS: Ht 180.3 cm; Wt 95.6 kg
[2023-09-03 13:37] LABS: BASO % 0.2 % (0.0-1.0); EOS % 0.2 % (0.0-3.0); HEMATOCRIT 41.7 % (42.0-52.0); HEMOGLOBIN 13.6 g/dl (13.5-17.5); LYMPH % 7.8 % (24.0-44.0); MEAN CORPUSCULAR HGB CONC 32.6 g/dl (32.0-36.5); MEAN CORPUSCULAR VOLUME 85.8 fl (80.0-96.0); MONO # 0.9 10^3/uL (0.0-0.8); NEUTROPHILS # 11.1 10^3/uL (1.5-8.5); NEUTROPHILS % 84.2 % (36.0-66.0); PLATELET COUNT, AUTOMATED 561 10^3/uL (150-450); RED BLOOD COUNT 4.86 10^6/uL (4.30-6.10); WHITE BLOOD COUNT 13.2 10^3/uL (4.0-10.0)
[2023-09-03 13:47] LABS: ERYTHROCYTE SEDIMENTATION RATE 107 mm/hr (0-20)
[2023-09-03 14:01] LABS: BLOOD UREA NITROGEN 11 MG/DL (9-23); CALCIUM LEVEL 9.1 MG/DL (8.3-10.6); CARBON DIOXIDE LEVEL 21 MMOL/L (20-31); CHLORIDE LEVEL 96 MMOL/L (98-107); CREATININE FOR GFR 0.71 MG/DL (0.70-1.30); GLOMERULAR FILTRATION RATE > 60.0 (>49); GLUCOSE, FASTING 248 MG/DL (74-106); POTASSIUM SERUM 4.9 MMOL/L (3.5-5.1); SODIUM LEVEL 128 MMOL/L (136-145)
[2023-09-03] MEDS ORDERED: VANCOMYCIN HCL 2,000 MG in IV FLUID PLACE HOLDER 1 EA IV ONE (15:55)
[2023-09-03] MEDS: VANCOMYCIN HCL 1,000 MG, VIAL MATE ADAPTER 1 EACH in D5W 250 ML IV ONE ×2 (16:36→17:50)
[2023-09-03 17:00] LABS: RSV AMPLIFICATION NEGATIVE (NEGATIVE)
[2023-09-03] MEDS ORDERED: MAALOX 30 ML SUSP *UDC PO PRN (17:15)
[2023-09-03] MEDS ORDERED: DEXTROSE 50% 50ML SYRINGE IV PRN (17:25)
[2023-09-03] MEDS ORDERED: GLUCOSE 4GM CHEW TABLET PO PRN (17:25)
[2023-09-03] MEDS ORDERED: GLUCAGON INJ 1MG VIAL SC PRN (17:25)
[2023-09-03] MEDS ORDERED: LORazepam 2 MG TAB PO PRN (17:30)
[2023-09-03] MEDS: NS 2,830 ML in IV 1 EA IV ONE (17:50)
[2023-09-03] MEDS ORDERED: HOME MED LIST COMPLETE! XX SCH (18:25)
[2023-09-03] MEDS: INSULIN LISPRO (NovoLOG) PER UNIT SC SCH ×2 (18:32→21:00)
[2023-09-03 18:44] LABS: MAGNESIUM LEVEL 1.7 MG/DL (1.8-2.4)
[2023-09-03] MEDS ORDERED: PROHANCE 279.3MG/ML 5ML VIAL As Ordered ONE (19:30)
[2023-09-03] MEDS ORDERED: PROHANCE 279.3MG/ML 15ML VIAL As Ordered ONE (19:31)
[2023-09-03 20:05] LABS: BLOOD UREA NITROGEN 10 MG/DL (9-23); CARBON DIOXIDE LEVEL 22 MMOL/L (20-31); CHLORIDE LEVEL 100 MMOL/L (98-107); CREATININE FOR GFR 0.67 MG/DL (0.70-1.30); GLOMERULAR FILTRATION RATE > 60.0 (>49); GLUCOSE, FASTING 165 MG/DL (74-106); POTASSIUM SERUM 4.4 MMOL/L (3.5-5.1); SODIUM LEVEL 130 MMOL/L (136-145)
[2023-09-03 20:55] VITALS: BP 139/72; TEMP 98.1; O2SAT 97
[2023-09-03 22:01] VITALS: BP 114/79
[2023-09-03] MEDS: THIAMINE 100 MG TAB PO SCH (22:18)
[2023-09-03] MEDS: METOPROLOL TART 25 MG TABLET PO SCH (22:18)
[2023-09-03] MEDS: PIPERACILLIN/TAZOBACTAM SOD 4.5 GM in D5W MINI-BAG PLUS 50 ML IV SCH (22:23)
[2023-09-04] VITALS (12 sets, daily range): BP systolic 103–129; BP diastolic 52–77; TEMP 97.5–98.1; O2SAT 87–97
[2023-09-04] MEDS: VANCOMYCIN HCL 750 MG, VIAL MATE ADAPTER 1 EACH in D5W 250 ML IV SCH ×2 (00:49→02:30)
[2023-09-04 06:54] LABS: BLOOD UREA NITROGEN 11 MG/DL (9-23); CARBON DIOXIDE LEVEL 22 MMOL/L (20-31); CHLORIDE LEVEL 105 MMOL/L (98-107); CREATININE FOR GFR 0.77 MG/DL (0.70-1.30); GLOMERULAR FILTRATION RATE > 60.0 (>49); GLUCOSE, FASTING 150 MG/DL (74-106); MAGNESIUM LEVEL 1.7 MG/DL (1.8-2.4); POTASSIUM SERUM 4.3 MMOL/L (3.5-5.1); SODIUM LEVEL 132 MMOL/L (136-145)
[2023-09-04 07:01] LABS: PROCALCITONIN 0.09 ng/ml
[2023-09-04 07:03] LABS: ERYTHROCYTE SEDIMENTATION RATE > 130 mm/hr (0-20)
[2023-09-04 07:26] LABS: BASO % 0.6 % (0.0-1.0); EOS # 0.2 10^3/uL (0.0-0.5); EOS % 2.2 % (0.0-3.0); HEMATOCRIT 33.4 % (42.0-52.0); LYMPH # 1.4 10^3/uL (1.5-5.0); LYMPH % 20.2 % (24.0-44.0); MEAN CORPUSCULAR HEMOGLOBIN 28.4 pg (27.0-33.0); MEAN CORPUSCULAR HGB CONC 33.5 g/dl (32.0-36.5); MEAN CORPUSCULAR VOLUME 84.6 fl (80.0-96.0); MONO # 0.9 10^3/uL (0.0-0.8); MONO % 12.7 % (2.0-8.0); NEUTROPHILS # 4.3 10^3/uL (1.5-8.5); NEUTROPHILS % 63.7 % (36.0-66.0); PLATELET COUNT, AUTOMATED 487 10^3/uL (150-450); RED BLOOD COUNT 3.95 10^6/uL (4.30-6.10); WHITE BLOOD COUNT 6.7 10^3/uL (4.0-10.0)
[2023-09-04 07:28] LABS: HEMOGLOBIN 11.2 g/dl (13.5-17.5)
[2023-09-04] MEDS: MULTIVITAMINS/MINERALS THERAP 1 TAB PO SCH (08:07)
[2023-09-04] MEDS: FOLIC ACID 1MG TAB PO SCH (08:10)
[2023-09-04] MEDS: MAGNESIUM OXIDE 400MG TAB (MAG-OX) PO ONE (08:10)
[2023-09-04] MEDS: LEVEMIR (INSULIN DETEMIR) 1 UNITS/0.01ML SC SCH (08:21)
[2023-09-04] MEDS: ENOXAPARIN 40MG/0.4ML SYRINGE (J1650 PER 10MG) SC SCH (08:22)
[2023-09-04] MEDS: NS 1,000 ML IV SCH (10:51)
[2023-09-04] MEDS: VANCOMYCIN HCL 1,000 MG, VIAL MATE ADAPTER 1 EACH in D5W 250 ML IV SCH (13:29)
[2023-09-04] MEDS ORDERED: LIDOCAINE 2% 100MG/5ML SDV (FOR ANES.) As Ordered ONE (16:13)
[2023-09-04] MEDS ORDERED: propofoL 200 MG/20 ML VIAL As Ordered ONE (16:13)
[2023-09-04] MEDS ORDERED: TOBRAMYCIN SULF 1.2GM VIAL As Ordered ONE (16:13)
[2023-09-04] MEDS ORDERED: ONDANSETRON 4MG 2ML VIAL As Ordered ONE (16:13)
[2023-09-04] MEDS ORDERED: KETOROLAC 60MG 2ML VIAL As Ordered ONE (16:13)
[2023-09-04] MEDS ORDERED: ceFAZolin 1GM VIAL As Ordered ONE (16:14)
[2023-09-04] MEDS ORDERED: fentaNYL 100 MCG/2 ML INJECTION As Ordered ONE (16:19)
[2023-09-04] MEDS ORDERED: MIDAZOLAM INJ 2MG/2ML VIAL As Ordered ONE (16:19)
[2023-09-04] MEDS: ZOSYN 4.5GM VIAL As Ordered ONE (17:22)
[2023-09-04] MEDS ORDERED: ACETAMINOPHEN 1000MG 100ML IV BAG As Ordered ONE (17:34)
[2023-09-04] MEDS: LIDOCAINE 2% MDV 20ML VIAL As Ordered ONE (17:45)
[2023-09-04] MEDS: GENTAMICIN SULF 80MG/2ML VIAL As Ordered ONE (18:12)
[2023-09-04] MEDS ORDERED: PERCOCET 5MG/325MG TAB PO PRN ×2 (19:50)
[2023-09-05] VITALS (10 sets, daily range): BP systolic 116–126; BP diastolic 62–70; TEMP 97.5–98.4; O2SAT 85–97
[2023-09-05 06:11] LABS: BASO % 0.4 % (0.0-1.0); EOS # 0.2 10^3/uL (0.0-0.5); EOS % 2.4 % (0.0-3.0); HEMOGLOBIN 10.7 g/dl (13.5-17.5); LYMPH # 1.1 10^3/uL (1.5-5.0); LYMPH % 13.1 % (24.0-44.0); MEAN CORPUSCULAR HEMOGLOBIN 28.5 pg (27.0-33.0); MEAN CORPUSCULAR HGB CONC 33.4 g/dl (32.0-36.5); MEAN CORPUSCULAR VOLUME 85.1 fl (80.0-96.0); MONO # 0.7 10^3/uL (0.0-0.8); MONO % 8.8 % (2.0-8.0); NEUTROPHILS # 6.1 10^3/uL (1.5-8.5); NEUTROPHILS % 74.9 % (36.0-66.0); PLATELET COUNT, AUTOMATED 445 10^3/uL (150-450); RED BLOOD COUNT 3.76 10^6/uL (4.30-6.10); WHITE BLOOD COUNT 8.2 10^3/uL (4.0-10.0)
[2023-09-05 06:34] LABS: ERYTHROCYTE SEDIMENTATION RATE 87 mm/hr (0-20)
[2023-09-05 06:36] LABS: BLOOD UREA NITROGEN 13 MG/DL (9-23); CALCIUM LEVEL 7.8 MG/DL (8.3-10.6); CARBON DIOXIDE LEVEL 24 MMOL/L (20-31); CHLORIDE LEVEL 107 MMOL/L (98-107); CREATININE FOR GFR 0.79 MG/DL (0.70-1.30); GLOMERULAR FILTRATION RATE > 60.0 (>49); GLUCOSE, FASTING 156 MG/DL (74-106); MAGNESIUM LEVEL 1.8 MG/DL (1.8-2.4); POTASSIUM SERUM 4.5 MMOL/L (3.5-5.1); SODIUM LEVEL 138 MMOL/L (136-145)
[2023-09-05] MEDS ORDERED: DIMETHICONE 2% OINTMENT(VANICREAM) 70GM TUBE TOP SCH (12:00)
[2023-09-05] MEDS: VANICREAM MOISTURIZING SKIN CREAM 113GM TUBE TOP SCH (13:10)
[2023-09-05] MEDS: FLUZONE HIGH DOSE(65YR UP)QUAD/PF 240MCG/0.7ML SYRINGE IM.IMMUN ONE (13:42)
[2023-09-05] MEDS: PREVNAR-20 VACCINE 0.5ML SYRINGE IM.IMMUN ONE (13:43)
[2023-09-05] MEDS: ACETAMINOPHEN TAB 650MG DOSE (2X325MG) PO PRN (20:38)
[2023-09-05] MEDS: LACTIC ACID 12% LOTION 225 GM BTL TOP SCH (20:40)
[2023-09-06 03:41] VITALS: O2SAT 94
[2023-09-06 05:19] VITALS: BP 124/69; TEMP 98.6; O2SAT 91
[2023-09-06 06:05] LABS: BASO % 0.4 % (0.0-1.0); EOS # 0.2 10^3/uL (0.0-0.5); EOS % 2.6 % (0.0-3.0); HEMATOCRIT 30.8 % (42.0-52.0); HEMOGLOBIN 10.1 g/dl (13.5-17.5); LYMPH # 1.1 10^3/uL (1.5-5.0); LYMPH % 12.7 % (24.0-44.0); MEAN CORPUSCULAR HGB CONC 32.8 g/dl (32.0-36.5); MEAN CORPUSCULAR VOLUME 85.3 fl (80.0-96.0); MONO # 0.7 10^3/uL (0.0-0.8); MONO % 8.4 % (2.0-8.0); NEUTROPHILS # 6.3 10^3/uL (1.5-8.5); NEUTROPHILS % 75.3 % (36.0-66.0); PLATELET COUNT, AUTOMATED 453 10^3/uL (150-450); RED BLOOD COUNT 3.61 10^6/uL (4.30-6.10); WHITE BLOOD COUNT 8.4 10^3/uL (4.0-10.0)
[2023-09-06 06:26] LABS: ERYTHROCYTE SEDIMENTATION RATE 86 mm/hr (0-20)
[2023-09-06 06:34] LABS: BLOOD UREA NITROGEN 13 MG/DL (9-23); CALCIUM LEVEL 7.7 MG/DL (8.3-10.6); CARBON DIOXIDE LEVEL 23 MMOL/L (20-31); CHLORIDE LEVEL 105 MMOL/L (98-107); GLOMERULAR FILTRATION RATE > 60.0 (>49); GLUCOSE, FASTING 232 MG/DL (74-106); MAGNESIUM LEVEL 1.8 MG/DL (1.8-2.4); POTASSIUM SERUM 4.6 MMOL/L (3.5-5.1); SODIUM LEVEL 134 MMOL/L (136-145)
[2023-09-06] MEDS: ATORVASTATIN 20 MG TAB PO SCH (08:16)
[2023-09-06] MEDS: LEVEMIR (INSULIN DETEMIR) 1 UNITS/0.01ML SC SCH (08:18)
[2023-09-06] MEDS: SENOKOT S TAB PO SCH (11:28)
[2023-09-06 14:00] VITALS: BP 137/69; TEMP 98.4; O2SAT 95
[2023-09-06] MEDS: BOOSTRIX VACCINE (TETANUS/DIPHTH/ACEL. PERTUSSIS) 0.5ML SYR IM ONE (15:04)
[2023-09-06 19:43] VITALS: BP 134/71; TEMP 98.8; O2SAT 95
[2023-09-07 01:54] VITALS: O2SAT 83
[2023-09-07 01:57] VITALS: O2SAT 96
[2023-09-07 05:29] VITALS: BP 135/71; TEMP 97.9; O2SAT 93
[2023-09-07 06:29] LABS: BASO % 0.4 % (0.0-1.0); EOS # 0.3 10^3/uL (0.0-0.5); EOS % 3.3 % (0.0-3.0); HEMOGLOBIN 11.4 g/dl (13.5-17.5); LYMPH # 1.3 10^3/uL (1.5-5.0); LYMPH % 15.6 % (24.0-44.0); MEAN CORPUSCULAR HEMOGLOBIN 27.9 pg (27.0-33.0); MEAN CORPUSCULAR HGB CONC 32.6 g/dl (32.0-36.5); MEAN CORPUSCULAR VOLUME 85.8 fl (80.0-96.0); MONO # 0.7 10^3/uL (0.0-0.8); MONO % 8.8 % (2.0-8.0); NEUTROPHILS % 71.3 % (36.0-66.0); PLATELET COUNT, AUTOMATED 563 10^3/uL (150-450); RED BLOOD COUNT 4.08 10^6/uL (4.30-6.10); WHITE BLOOD COUNT 8.4 10^3/uL (4.0-10.0)
[2023-09-07 06:47] LABS: BLOOD UREA NITROGEN 12 MG/DL (9-23); CALCIUM LEVEL 8.6 MG/DL (8.3-10.6); CARBON DIOXIDE LEVEL 24 MMOL/L (20-31); CHLORIDE LEVEL 103 MMOL/L (98-107); CREATININE FOR GFR 0.79 MG/DL (0.70-1.30); GLOMERULAR FILTRATION RATE > 60.0 (>49); GLUCOSE, FASTING 202 MG/DL (74-106); MAGNESIUM LEVEL 1.8 MG/DL (1.8-2.4); POTASSIUM SERUM 4.8 MMOL/L (3.5-5.1); SODIUM LEVEL 135 MMOL/L (136-145)
[2023-09-07 06:48] LABS: ERYTHROCYTE SEDIMENTATION RATE > 130 mm/hr (0-20)
[2023-09-07] MEDS: MOM 30ML SUSPENSION UDC PO PRN (09:04)
[2023-09-07 14:00] VITALS: TEMP 97.5; O2SAT 95
[2023-09-07 20:28] VITALS: BP 141/76; TEMP 98.4; O2SAT 97
[2023-09-08 05:17] VITALS: BP 129/69; TEMP 98.6; O2SAT 96
[2023-09-08 05:32] LABS: BASO % 0.3 % (0.0-1.0); EOS # 0.3 10^3/uL (0.0-0.5); EOS % 3.5 % (0.0-3.0); HEMATOCRIT 31.9 % (42.0-52.0); HEMOGLOBIN 10.5 g/dl (13.5-17.5); LYMPH # 1.5 10^3/uL (1.5-5.0); LYMPH % 19.4 % (24.0-44.0); MEAN CORPUSCULAR HEMOGLOBIN 28.5 pg (27.0-33.0); MEAN CORPUSCULAR HGB CONC 32.9 g/dl (32.0-36.5); MEAN CORPUSCULAR VOLUME 86.7 fl (80.0-96.0); MONO # 0.7 10^3/uL (0.0-0.8); MONO % 8.9 % (2.0-8.0); NEUTROPHILS # 5.2 10^3/uL (1.5-8.5); NEUTROPHILS % 67.2 % (36.0-66.0); PLATELET COUNT, AUTOMATED 532 10^3/uL (150-450); RED BLOOD COUNT 3.68 10^6/uL (4.30-6.10); WHITE BLOOD COUNT 7.7 10^3/uL (4.0-10.0)
[2023-09-08 05:42] LABS: ERYTHROCYTE SEDIMENTATION RATE 88 mm/hr (0-20)
[2023-09-08 05:54] LABS: BLOOD UREA NITROGEN 18 MG/DL (9-23); CALCIUM LEVEL 8.3 MG/DL (8.3-10.6); CARBON DIOXIDE LEVEL 26 MMOL/L (20-31); CHLORIDE LEVEL 108 MMOL/L (98-107); CREATININE FOR GFR 0.83 MG/DL (0.70-1.30); GLOMERULAR FILTRATION RATE > 60.0 (>49); GLUCOSE, FASTING 191 MG/DL (74-106); MAGNESIUM LEVEL 1.7 MG/DL (1.8-2.4); POTASSIUM SERUM 4.7 MMOL/L (3.5-5.1); SODIUM LEVEL 137 MMOL/L (136-145)
[2023-09-08 14:00] VITALS: BP 130/70; TEMP 97.9; O2SAT 98
[2023-09-08] MEDS: MAG SULF 1GM/100ML (MAG RUN) 1 GM in IV 1 EA IV SCH (15:00)
[2023-09-08 20:30] VITALS: BP 132/69; TEMP 97.9; O2SAT 97
[2023-09-09 05:52] VITALS: BP 133/70; TEMP 97.9; O2SAT 97
[2023-09-09] MEDS ORDERED: HumuLIN R (REGULAR) INSULIN (NovoLIN R) **100U/ML** PER UNIT IV STA (07:20)
[2023-09-09] MEDS: LEVEMIR (INSULIN DETEMIR) 1 UNITS/0.01ML SC SCH (08:03)
[2023-09-09] MEDS ORDERED: AMOX875T2 PO (11:12)
[2023-09-09 14:00] VITALS: BP 128/70; TEMP 97.9; O2SAT 95
[2023-09-09] MEDS ORDERED: INSUDET SC (18:36)
[2023-09-09] MEDS ORDERED: INSUHUMDS SC (18:36)
[2023-09-09 21:00] VITALS: BP 152/74; TEMP 97.7; O2SAT 97
[2023-09-10 06:09] LABS: BASO # 0.1 10^3/uL (0.0-0.2); BASO % 0.5 % (0.0-1.0); EOS # 0.3 10^3/uL (0.0-0.5); HEMATOCRIT 35.2 % (42.0-52.0); HEMOGLOBIN 11.4 g/dl (13.5-17.5); LYMPH # 2.1 10^3/uL (1.5-5.0); LYMPH % 22.4 % (24.0-44.0); MEAN CORPUSCULAR HGB CONC 32.4 g/dl (32.0-36.5); MEAN CORPUSCULAR VOLUME 86.5 fl (80.0-96.0); MONO # 0.8 10^3/uL (0.0-0.8); MONO % 8.5 % (2.0-8.0); NEUTROPHILS % 64.8 % (36.0-66.0); PLATELET COUNT, AUTOMATED 558 10^3/uL (150-450); RED BLOOD COUNT 4.07 10^6/uL (4.30-6.10); WHITE BLOOD COUNT 9.2 10^3/uL (4.0-10.0)
[2023-09-10 06:22] VITALS: BP 150/72; TEMP 97.7; O2SAT 96
[2023-09-10 06:37] LABS: ERYTHROCYTE SEDIMENTATION RATE 105 mm/hr (0-20)
[2023-09-10 06:49] LABS: BLOOD UREA NITROGEN 18 MG/DL (9-23); CALCIUM LEVEL 8.9 MG/DL (8.3-10.6); CARBON DIOXIDE LEVEL 24 MMOL/L (20-31); CHLORIDE LEVEL 106 MMOL/L (98-107); CREATININE FOR GFR 0.69 MG/DL (0.70-1.30); GLOMERULAR FILTRATION RATE > 60.0 (>49); GLUCOSE, FASTING 201 MG/DL (74-106); MAGNESIUM LEVEL 1.7 MG/DL (1.8-2.4); POTASSIUM SERUM 4.8 MMOL/L (3.5-5.1); SODIUM LEVEL 135 MMOL/L (136-145)
[2023-09-10 07:52] VITALS: BP 149/73
[2023-09-10] MEDS ORDERED: AMOX875T2 PO (10:01)
[2023-09-10] MEDS ORDERED: METF10004 PO (10:40)
[2023-09-10] MEDS ORDERED: INSULANT SC (10:40)
[2023-09-10] MEDS: AUGMENTIN 875 MG TAB PO ONE (11:04)
== END 2023-09-10 12:12 | disposition home health service (06) | DRG 982 ==
LOC: M ED 12:16 → M ED INP 17:11 → ENRESERV 19:48 → M MSPAV 20:55
PROVIDERS: ADMIT Student in an Organized Health Care Education/Training Program; ATTEND Student in an Organized Health Care Education/Training Program
PROC: 0QDL0ZZ Extraction of Right Tarsal, Open Approach (ICD-10-PCS; principal; 2023-09-04 16:30)
DX: E11.69 Type 2 diabetes mellitus with other specified complication (principal); L03.115 Cellulitis of right lower limb; E87.1 Hypo-osmolality and hyponatremia; E87.20 Acidosis, unspecified; M86.8X7 Other osteomyelitis, ankle and foot; L97.518 Non-pressure chronic ulcer of other part of right foot with other specified severity; M00.871 Arthritis due to other bacteria, right ankle and foot; E11.621 Type 2 diabetes mellitus with foot ulcer; B95.2 Enterococcus as the cause of diseases classified elsewhere; B95.61 Methicillin susceptible Staphylococcus aureus infection as the cause of diseases classified elsewhere; E11.51 Type 2 diabetes mellitus with diabetic peripheral angiopathy without gangrene; I10 Essential (primary) hypertension; F17.200 Nicotine dependence, unspecified, uncomplicated; E11.65 Type 2 diabetes mellitus with hyperglycemia; F10.10 Alcohol abuse, uncomplicated; E11.42 Type 2 diabetes mellitus with diabetic polyneuropathy; E78.5 Hyperlipidemia, unspecified; Z89.421 Acquired absence of other right toe(s); Z89.422 Acquired absence of other left toe(s); Z79.02 Long term (current) use of antithrombotics/antiplatelets; Z79.4 Long term (current) use of insulin

== ENCOUNTER → 2023-09-03 | Outpatient (REF) | payer MEDICARE, OTHER ==
[~2023-09-03] MED LIST changes: +CHOL100013 PO; -CURRENT HEIGHT AND WEIGHT NEEDED ON PATIENT XX SCH; +JARD1TAB3 PO; +LEVO1TAB40 PO; +RISATAB3 PO; +SILV50CR TOP; +VITA100054 PO
== END ==
LOC: M LAB REF 11:58
PROVIDERS: ATTEND Podiatrist
DX: L03.125 Acute lymphangitis of right lower limb (principal)

== ENCOUNTER 2024-08-24 15:03 | Inpatient (IN) | payer OTHER, MEDICARE ==
[~2024-08-24] VITALS: Ht 177.8 cm; Wt 106.5 kg
[~2024-08-24 15:03] MED LIST changes: +AMOX875T2 PO; +INSUDET SC; +INSUHUMDS SC
[2024-08-24 15:54] LABS: VENOUS BASE EXCESS 0.8 (-2.0-2.0); VENOUS O2 SATURATION 32.6 % (60.0-80.0); VENOUS PARTIAL PRESSURE CO2 49.5 mmHg (38.0-50.0); VENOUS PARTIAL PRESSURE O2 21.1 mmHg (30.0-50.0); VENOUS PH 7.355 UNITS (7.330-7.430); VENOUS STANDARD HCO3 23.6 MMOL/L; VENOUS TOTAL CO2 28.5 MMOL/L (24.0-28.0)
[2024-08-24 16:15] LABS: BASO % 0.2 % (0.0-1.0); EOS % 0.2 % (0.0-3.0); HEMATOCRIT 40.3 % (42.0-52.0); HEMOGLOBIN 13.9 g/dl (13.5-17.5); LYMPH # 0.8 10^3/uL (1.5-5.0); LYMPH % 4.1 % (24.0-44.0); MEAN CORPUSCULAR HEMOGLOBIN 30.1 pg (27.0-33.0); MEAN CORPUSCULAR HGB CONC 34.5 g/dl (32.0-36.5); MEAN CORPUSCULAR VOLUME 87.2 fl (80.0-96.0); MONO # 0.7 10^3/uL (0.0-0.8); MONO % 3.4 % (2.0-8.0); NEUTROPHILS # 17.7 10^3/uL (1.5-8.5); NEUTROPHILS % 90.5 % (36.0-66.0); PLATELET COUNT, AUTOMATED 441 10^3/uL (150-450); RED BLOOD COUNT 4.62 10^6/uL (4.30-6.10); WHITE BLOOD COUNT 19.6 10^3/uL (4.0-10.0)
[2024-08-24 16:34] LABS: ACETONE/KETONE 1.38 MMOL/L (0.02-0.27); ALBUMIN 1.7 G/DL (3.2-5.2); BILIRUBIN,DIRECT 0.5 MG/DL (<0.4); TOTAL PROTEIN 6.8 G/DL (5.7-8.2)
[2024-08-24 16:41] LABS: HEMOGLOBIN A1c 12.4 % (4.0-6.0)
[2024-08-24 17:39] LABS: CALCIUM LEVEL 7.8 MG/DL (8.3-10.6); CREATININE FOR GFR 1.37 MG/DL (0.70-1.30); POTASSIUM SERUM 4.1 MMOL/L (3.5-5.1)
[2024-08-24] MEDS: HumuLIN R (REGULAR) INSULIN (NovoLIN R) **100U/ML** PER UNIT IV ONE (17:51)
[2024-08-24] MEDS: NS (Normal Saline) 0.9% 1,000 ML IV ONE (17:51)
[2024-08-24 18:33] LABS: PROCALCITONIN 0.35 ng/ml
[2024-08-24] MEDS: CLINDAMYCIN 900 MG in IV 1 EA IV ONE (18:56)
[2024-08-24] MEDS ORDERED: INSULANT SC (20:16)
[2024-08-24] MEDS ORDERED: LISI40TA4 PO (20:16)
[2024-08-24] MEDS ORDERED: METF-877 PO (20:16)
[2024-08-24] MEDS ORDERED: HOME MED LIST COMPLETE! XX SCH (20:20)
[2024-08-24] MEDS ORDERED: MOM 30ML SUSPENSION UDC PO PRN (21:05)
[2024-08-24] MEDS ORDERED: GLUCOSE 4 GM CHEW PO PRN (21:05)
[2024-08-24] MEDS ORDERED: MAALOX 30 ML SUSP *UDC PO PRN (21:05)
[2024-08-24] MEDS ORDERED: GLUCAGON INJ 1MG VIAL SC PRN (21:05)
[2024-08-24] MEDS ORDERED: VANCOMYCIN HCL 15 MG in IV FLUID PLACE HOLDER 1 EA IV SCH (21:05)
[2024-08-24] MEDS ORDERED: DEXTROSE 50% 50ML SYRINGE IV PRN (21:05)
[2024-08-24] MEDS: METOPROLOL SUCC (TopROL XL) 50MG **XL** TAB PO SCH (21:47)
[2024-08-24] MEDS: LEVEMIR (INSULIN DETEMIR) 1 UNITS/0.01ML SC SCH (21:50)
[2024-08-24 22:43] VITALS: BP 163/81; TEMP 98.3; O2SAT 95
[2024-08-24 22:58] VITALS: O2SAT 94
[2024-08-24 22:58] LABS: IONIZED CALCIUM 4.1 MG/DL (4.5-5.3)
[2024-08-24] MEDS: PIPERACILLIN/TAZOBACTAM SOD 4.5 GM in DEXTROSE 5% (D5W) ADV/MINI-BAG 50 ML IV SCH (23:28)
[2024-08-24] MEDS: PANTOPRAZOLE 40MG VIAL IV SCH (23:29)
[2024-08-24] MEDS: VANCOMYCIN HCL 2,000 MG, VIAL MATE ADAPTER 1 EACH in NS 500 ML IV ONE (23:30)
[2024-08-24 23:38] LABS: ETHYL ALCOHOL (ETHANOL) < 0.003 % (0.000-0.010); MAGNESIUM LEVEL 1.6 MG/DL (1.8-2.4)
[2024-08-24 23:39] LABS: C REACTIVE PROTEIN QUANTITATIV 10.51 MG/DL (<1.0)
[2024-08-24 23:40] LABS: ACETONE/KETONE 1.41 MMOL/L (0.02-0.27); SALICYLATE LEVEL < 3.0 MG/DL (<30)
[2024-08-24 23:47] LABS: CALCIUM LEVEL 7.3 MG/DL (8.3-10.6); CREATININE FOR GFR 1.61 MG/DL (0.70-1.30); GLOMERULAR FILTRATION RATE 45.7 (>49); POTASSIUM SERUM 3.8 MMOL/L (3.5-5.1)
[2024-08-25] MEDS: LR 1,000 ML IV SCH (02:17)
[2024-08-25] MEDS: MAGNESIUM OXIDE 400MG TAB (MAG-OX) PO ONE (02:17)
[2024-08-25] MEDS: INSULIN LISPRO (NovoLOG) PER UNIT SC ONE (02:27)
[2024-08-25 02:44] LABS: CALCIUM LEVEL 7.2 MG/DL (8.3-10.6); CREATININE FOR GFR 1.71 MG/DL (0.70-1.30); GLOMERULAR FILTRATION RATE 42.6 (>49); POTASSIUM SERUM 3.3 MMOL/L (3.5-5.1)
[2024-08-25 03:10] VITALS: BP 144/73; TEMP 99.1; O2SAT 96
[2024-08-25] MEDS: LR 1,000 ML IV ONE (04:12)
[2024-08-25] MEDS: KCL 10MEQ/100ML SWI (KRUN) 10 MEQ in IV 1 EA IV SCH (04:13)
[2024-08-25 06:07] LABS: MEAN CORPUSCULAR HEMOGLOBIN 29.6 pg (27.0-33.0); MEAN CORPUSCULAR HGB CONC 34.7 g/dl (32.0-36.5); MEAN CORPUSCULAR VOLUME 85.2 fl (80.0-96.0); RED BLOOD COUNT 3.99 10^6/uL (4.30-6.10); WHITE BLOOD COUNT 18.5 10^3/uL (4.0-10.0)
[2024-08-25 06:19] LABS: HEMOGLOBIN 11.8 g/dl (13.5-17.5); PLATELET COUNT, AUTOMATED 317 10^3/uL (150-450)
[2024-08-25 06:30] LABS: ACETONE/KETONE 0.03 MMOL/L (0.02-0.27)
[2024-08-25 06:35] LABS: ALBUMIN 1.4 G/DL (3.2-5.2); BILIRUBIN,TOTAL 0.5 MG/DL (0.3-1.2); CALCIUM LEVEL 7.7 MG/DL (8.3-10.6); CREATININE FOR GFR 1.85 MG/DL (0.70-1.30); GLOMERULAR FILTRATION RATE 38.9 (>49); MAGNESIUM LEVEL 1.6 MG/DL (1.8-2.4); POTASSIUM SERUM 3.5 MMOL/L (3.5-5.1); TOTAL PROTEIN 5.6 G/DL (5.7-8.2)
[2024-08-25 08:00] VITALS: BP 171/91; TEMP 98.8; O2SAT 95
[2024-08-25] MEDS: VANCOMYCIN HCL 1,000 MG, VIAL MATE ADAPTER 1 EACH in NS 250 ML IV SCH (08:45)
[2024-08-25] MEDS: ONDANSETRON 4MG 2ML VIAL IV PRN (08:45)
[2024-08-25] MEDS: ENOXAPARIN 40MG/0.4ML SYRINGE (J1650 PER 10MG) SC SCH (08:46)
[2024-08-25] MEDS: DOCUSATE SODIUM 100MG CAPSULE PO SCH (08:49)
[2024-08-25] MEDS: ACETAMINOPHEN 325 MG TAB PO PRN (08:50)
[2024-08-25] MEDS: ATORVASTATIN 20 MG TAB PO SCH (08:50)
[2024-08-25] MEDS: INSULIN LISPRO (NovoLOG) PER UNIT SC SCH ×3 (08:51→20:46)
[2024-08-25 09:12] LABS: VANCOMYCIN RANDOM 21.2 UG/ML
[2024-08-25 09:13] LABS: CHOLESTEROL RISK RATIO 6.73 (<5); HDL CHOLESTEROL 18.4 MG/DL (>40); LDL CHOLESTEROL 80.4 MG/DL (<100); NON-HDL-C 105.6 MG/DL
[2024-08-25 09:34] LABS: HEMOGLOBIN A1c 12.3 % (4.0-6.0)
[2024-08-25] MEDS: VANICREAM MOISTURIZING SKIN CREAM 113GM TUBE TOP PRN (10:30)
[2024-08-25 12:00] VITALS: BP 147/73; TEMP 98.1; O2SAT 94
[2024-08-25 12:47] LABS: CALCIUM LEVEL 7.4 MG/DL (8.3-10.6); CREATININE FOR GFR 2.01 MG/DL (0.70-1.30); GLOMERULAR FILTRATION RATE 35.3 (>49); POTASSIUM SERUM 3.9 MMOL/L (3.5-5.1)
[2024-08-25 15:07] LABS: KETONE, URINE AUTO RFX NEGATIVE (NEGATIVE); LEUKOCYTE ESTERASE UR AUTO RFX NEGATIVE (NEGATIVE); NITRITE, URINE AUTO RFX NEGATIVE (NEGATIVE); RBC, URINE AUTO RFX 64 /HPF (0-3); SQUAM EPITHELIAL CELL UR AURFX 0 /HPF (0-6); WBC, URINE AUTO RFX 0 /HPF (0-3)
[2024-08-25 16:00] VITALS: BP 146/72; TEMP 99; O2SAT 94
[2024-08-25] MEDS: PIPERACILLIN/TAZOBACTAM SOD 3.375 GM in DEXTROSE 5% (D5W) ADV/MINI-BAG 50 ML IV SCH (16:09)
[2024-08-25 18:33] LABS: CALCIUM LEVEL 7.1 MG/DL (8.3-10.6); CREATININE FOR GFR 2.33 MG/DL (0.70-1.30); GLOMERULAR FILTRATION RATE 29.8 (>49); POTASSIUM SERUM 3.8 MMOL/L (3.5-5.1)
[2024-08-25 20:17] VITALS: BP_SYST 146; BP_SYST 246; BP_DIAS 73; TEMP 98.5; O2SAT 95
[2024-08-25 22:00] VITALS: O2SAT 94
[2024-08-26] VITALS: BP 141/71; TEMP 97.9; O2SAT 95
[2024-08-26 00:40] LABS: CREATININE FOR GFR 2.83 MG/DL (0.70-1.30); GLOMERULAR FILTRATION RATE 23.8 (>49); POTASSIUM SERUM 3.8 MMOL/L (3.5-5.1)
[2024-08-26 04:00] VITALS: BP 160/81; TEMP 98.9; O2SAT 94
[2024-08-26 06:19] LABS: BASO % 0.2 % (0.0-1.0); EOS # 0.2 10^3/uL (0.0-0.5); EOS % 0.9 % (0.0-3.0); HEMATOCRIT 33.6 % (42.0-52.0); HEMOGLOBIN 11.6 g/dl (13.5-17.5); LYMPH # 0.9 10^3/uL (1.5-5.0); LYMPH % 5.3 % (24.0-44.0); MEAN CORPUSCULAR HEMOGLOBIN 29.7 pg (27.0-33.0); MEAN CORPUSCULAR HGB CONC 34.5 g/dl (32.0-36.5); MEAN CORPUSCULAR VOLUME 86.2 fl (80.0-96.0); MONO # 1.1 10^3/uL (0.0-0.8); MONO % 6.3 % (2.0-8.0); NEUTROPHILS # 14.4 10^3/uL (1.5-8.5); NEUTROPHILS % 86.1 % (36.0-66.0); PLATELET COUNT, AUTOMATED 358 10^3/uL (150-450); WHITE BLOOD COUNT 16.8 10^3/uL (4.0-10.0)
[2024-08-26 06:51] LABS: C REACTIVE PROTEIN QUANTITATIV 7.2 MG/DL (<1.0)
[2024-08-26 08:00] VITALS: BP 152/78; TEMP 98.8; O2SAT 96
[2024-08-26] MEDS ORDERED: VANCOMYCIN HCL 1,000 MG, VIAL MATE ADAPTER 1 EACH in NS 250 ML IV SCH (08:00)
[2024-08-26] MEDS: FUROSEMIDE 40MG/4ML VIAL IV SCH (09:16)
[2024-08-26] MEDS: VANCOMYCIN HCL 750 MG, VIAL MATE ADAPTER 1 EACH in NS 250 ML IV SCH (09:17)
[2024-08-26] MEDS: INSULIN LISPRO (NovoLOG) PER UNIT SC SCH (09:19)
[2024-08-26] MEDS: FLUBLOK(EGGFREE) TRIVAL(24-25) VACCINE PF 0.5ML SYRINGE 18YRS & OLDER IM.IMMUN ONE (09:20)
[2024-08-26] MEDS ORDERED: BISACODYL 10MG SUPP PR PRN (09:35)
[2024-08-26] MEDS: PIPERACILLIN/TAZOBACTAM SOD 2.25 GM in DEXTROSE 5% (D5W) ADV/MINI-BAG 50 ML IV SCH (11:01)
[2024-08-26 11:56] LABS: CALCIUM LEVEL 7.2 MG/DL (8.3-10.6); CREATININE FOR GFR 3.01 MG/DL (0.70-1.30); GLOMERULAR FILTRATION RATE 22.2 (>49); MAGNESIUM LEVEL 1.7 MG/DL (1.8-2.4)
[2024-08-26 12:00] VITALS: BP 153/78; TEMP 98.2; O2SAT 95
[2024-08-26] MEDS: NS (Normal Saline) 0.9% 1,000 ML IV SCH (12:23)
[2024-08-26 16:00] VITALS: BP 156/79; TEMP 98.6; O2SAT 96
[2024-08-26 20:56] VITALS: BP 157/79; TEMP 98.8; O2SAT 96
[2024-08-26] MEDS: LEVEMIR (INSULIN DETEMIR) 1 UNITS/0.01ML SC SCH (21:00)
[2024-08-26] MEDS: SENOKOT S TAB PO SCH (22:02)
[2024-08-26] MEDS: NORCO, ANEXSIA 5/325MG TABLET (HYDROcodone/ACETAMINOPHEN) PO ONE (22:08)
[2024-08-27] VITALS (8 sets, daily range): BP systolic 154–158; BP diastolic 72–80; TEMP 97.3–98.6; O2SAT 94–97
[2024-08-27 07:27] LABS: BASO % 0.2 % (0.0-1.0); EOS # 0.2 10^3/uL (0.0-0.5); EOS % 1.3 % (0.0-3.0); HEMATOCRIT 32.4 % (42.0-52.0); LYMPH # 1.2 10^3/uL (1.5-5.0); LYMPH % 8.4 % (24.0-44.0); MEAN CORPUSCULAR HEMOGLOBIN 29.6 pg (27.0-33.0); MEAN CORPUSCULAR VOLUME 87.1 fl (80.0-96.0); MONO # 0.9 10^3/uL (0.0-0.8); MONO % 6.1 % (2.0-8.0); NEUTROPHILS # 12.2 10^3/uL (1.5-8.5); NEUTROPHILS % 82.9 % (36.0-66.0); PLATELET COUNT, AUTOMATED 356 10^3/uL (150-450); RED BLOOD COUNT 3.72 10^6/uL (4.30-6.10); WHITE BLOOD COUNT 14.7 10^3/uL (4.0-10.0)
[2024-08-27 07:50] LABS: VANCOMYCIN LEVEL TROUGH 17.8 UG/ML (10.0-20.0)
[2024-08-27 07:51] LABS: PERCENT SATURATION 9.6 % (19.7-50.0)
[2024-08-27 07:52] LABS: C REACTIVE PROTEIN QUANTITATIV 6.59 MG/DL (<1.0)
[2024-08-27 07:54] LABS: FERRITIN 435.9 NG/ML (10.5-307.3); TOTAL 25(OH) VITAMIN D 18.1 NG/ML (20.0-100.0)
[2024-08-27] MEDS: INSULIN LISPRO (NovoLOG) PER UNIT SC SCH (09:30)
[2024-08-27] MEDS: cefTRIAXone SOD 2 GM in DEXTROSE 5% (D5W) ADV/MINI-BAG 50 ML IV SCH (09:31)
[2024-08-27 11:06] LABS: CALCIUM LEVEL 7.1 MG/DL (8.3-10.6); CREATININE FOR GFR 2.64 MG/DL (0.70-1.30); GLOMERULAR FILTRATION RATE 25.8 (>49); MAGNESIUM LEVEL 1.7 MG/DL (1.8-2.4); POTASSIUM SERUM 4.1 MMOL/L (3.5-5.1)
[2024-08-27] MEDS: VITAMIN D 1,000 INTERNATIONAL UNITS TABLET PO SCH (12:34)
[2024-08-27] MEDS: LEVEMIR (INSULIN DETEMIR) 1 UNITS/0.01ML SC SCH (20:19)
[2024-08-27] MEDS: HEPARIN SOD (PORCINE) 5000UNITS/ML 1ML VIAL/SYRINGE SC SCH (20:22)
[2024-08-27] MEDS ORDERED: LEVEMIR (INSULIN DETEMIR) 1 UNITS/0.01ML SC SCH (21:00)
[2024-08-28 04:00] VITALS: BP 151/88; TEMP 97.9; O2SAT 98
[2024-08-28 06:53] LABS: BASO % 0.3 % (0.0-1.0); C REACTIVE PROTEIN QUANTITATIV 8.85 MG/DL (<1.0); EOS # 0.2 10^3/uL (0.0-0.5); EOS % 1.3 % (0.0-3.0); HEMATOCRIT 30.5 % (42.0-52.0); HEMOGLOBIN 10.3 g/dl (13.5-17.5); LYMPH % 7.8 % (24.0-44.0); MEAN CORPUSCULAR HEMOGLOBIN 29.7 pg (27.0-33.0); MEAN CORPUSCULAR HGB CONC 33.8 g/dl (32.0-36.5); MEAN CORPUSCULAR VOLUME 87.9 fl (80.0-96.0); MONO # 0.9 10^3/uL (0.0-0.8); MONO % 6.9 % (2.0-8.0); NEUTROPHILS # 10.9 10^3/uL (1.5-8.5); NEUTROPHILS % 82.8 % (36.0-66.0); PLATELET COUNT, AUTOMATED 356 10^3/uL (150-450); RED BLOOD COUNT 3.47 10^6/uL (4.30-6.10); WHITE BLOOD COUNT 13.2 10^3/uL (4.0-10.0)
[2024-08-28 06:54] LABS: CALCIUM LEVEL 6.7 MG/DL (8.3-10.6); CREATININE FOR GFR 2.29 MG/DL (0.70-1.30); GLOMERULAR FILTRATION RATE 30.4 (>49); MAGNESIUM LEVEL 1.6 MG/DL (1.8-2.4); POTASSIUM SERUM 4.5 MMOL/L (3.5-5.1)
[2024-08-28 08:01] VITALS: BP 148/78; TEMP 98.1; O2SAT 96
[2024-08-28] MEDS: MAGNESIUM OXIDE 400MG TAB (MAG-OX) PO SCH (08:43)
[2024-08-28 11:57] VITALS: BP 150/82; TEMP 98.1; O2SAT 97
[2024-08-28 12:34] LABS: CREATININE,RANDOM URINE 153.1 MG/DL
[2024-08-28 16:29] LABS: TOTAL PROTEIN,RANDOM URINE 197.1 MG/DL (0.0-14.0)
[2024-08-28 20:00] VITALS: BP 144/86; TEMP 97.8; O2SAT 95
[2024-08-28] MEDS ORDERED: LEVEMIR (INSULIN DETEMIR) 1 UNITS/0.01ML SC SCH (21:00)
[2024-08-28] MEDS: LEVEMIR (INSULIN DETEMIR) 1 UNITS/0.01ML SC SCH (21:34)
[2024-08-29] VITALS: BP 142/82; TEMP 98.1; O2SAT 96
[2024-08-29 04:00] VITALS: BP 146/88; TEMP 98.6; O2SAT 94
[2024-08-29 05:45] LABS: BASO % 0.3 % (0.0-1.0); EOS # 0.1 10^3/uL (0.0-0.5); HEMATOCRIT 33.5 % (42.0-52.0); HEMOGLOBIN 11.1 g/dl (13.5-17.5); LYMPH % 7.7 % (24.0-44.0); MEAN CORPUSCULAR HEMOGLOBIN 29.4 pg (27.0-33.0); MEAN CORPUSCULAR HGB CONC 33.1 g/dl (32.0-36.5); MEAN CORPUSCULAR VOLUME 88.6 fl (80.0-96.0); MONO % 7.2 % (2.0-8.0); NEUTROPHILS % 82.9 % (36.0-66.0); PLATELET COUNT, AUTOMATED 434 10^3/uL (150-450); RED BLOOD COUNT 3.78 10^6/uL (4.30-6.10); WHITE BLOOD COUNT 13.2 10^3/uL (4.0-10.0)
[2024-08-29 06:10] LABS: C REACTIVE PROTEIN QUANTITATIV 10.76 MG/DL (<1.0)
[2024-08-29 06:11] LABS: CALCIUM LEVEL 7.5 MG/DL (8.3-10.6); CREATININE FOR GFR 1.91 MG/DL (0.70-1.30); GLOMERULAR FILTRATION RATE 37.5 (>49); MAGNESIUM LEVEL 1.6 MG/DL (1.8-2.4); POTASSIUM SERUM 4.6 MMOL/L (3.5-5.1)
[2024-08-29 08:00] VITALS: BP_SYST 152; BP_SYST 201; BP_DIAS 88; BP_DIAS 97; TEMP 98.6; O2SAT 96
[2024-08-29] MEDS: INSULIN LISPRO (NovoLOG) PER UNIT SC SCH ×2 (09:40→09:56)
[2024-08-29] MEDS: ATORVASTATIN 20 MG TAB PO SCH (09:42)
[2024-08-29] MEDS: MAG SULF 1GM/100ML (MAG RUN) 1 GM in IV 1 EA IV SCH (09:57)
[2024-08-29 12:00] VITALS: BP 164/86; TEMP 98.6; O2SAT 95
[2024-08-29 16:00] VITALS: BP 168/84; TEMP 98.6; O2SAT 95
[2024-08-29] MEDS: CLOPIDOGREL 75 MG TAB PO SCH (16:40)
[2024-08-29] MEDS: **hydrALAZINE HCL** 25 MG TAB PO SCH (17:24)
[2024-08-29 20:46] VITALS: BP 162/86; TEMP 98.6; O2SAT 95
[2024-08-30 00:06] VITALS: BP 148/84; TEMP 98.6; O2SAT 96
[2024-08-30 04:03] VITALS: BP 148/88; TEMP 98.6; O2SAT 94
[2024-08-30 06:35] LABS: BASO % 0.2 % (0.0-1.0); EOS # 0.1 10^3/uL (0.0-0.5); HEMATOCRIT 32.5 % (42.0-52.0); HEMOGLOBIN 10.9 g/dl (13.5-17.5); LYMPH # 1.1 10^3/uL (1.5-5.0); LYMPH % 7.9 % (24.0-44.0); MEAN CORPUSCULAR HEMOGLOBIN 29.6 pg (27.0-33.0); MEAN CORPUSCULAR HGB CONC 33.5 g/dl (32.0-36.5); MEAN CORPUSCULAR VOLUME 88.3 fl (80.0-96.0); MONO # 1.1 10^3/uL (0.0-0.8); MONO % 8.2 % (2.0-8.0); PLATELET COUNT, AUTOMATED 469 10^3/uL (150-450); RED BLOOD COUNT 3.68 10^6/uL (4.30-6.10); WHITE BLOOD COUNT 13.5 10^3/uL (4.0-10.0)
[2024-08-30 06:52] LABS: C REACTIVE PROTEIN QUANTITATIV 11.67 MG/DL (<1.0); CALCIUM LEVEL 8.1 MG/DL (8.3-10.6); CREATININE FOR GFR 1.71 MG/DL (0.70-1.30); GLOMERULAR FILTRATION RATE 42.6 (>49); MAGNESIUM LEVEL 2.1 MG/DL (1.8-2.4); POTASSIUM SERUM 5.1 MMOL/L (3.5-5.1)
[2024-08-30 08:00] VITALS: BP 138/72; TEMP 98.1; O2SAT 94
[2024-08-30] MEDS ORDERED: MIRALAX *UNIT DOSE* 17GM PACKET PO PRN (11:55)
[2024-08-30 12:00] VITALS: BP 146/72; TEMP 97.3; O2SAT 96
[2024-08-30] MEDS: IPRATROPIUM 0.5MG/ALBUTEROL 2.5MG INH SOL UD 3ML (DUONEB) NEB PRN (12:02)
[2024-08-30] MEDS: metroNIDAZOLE 500 MG in IV 1 EA IV SCH (13:32)
[2024-08-30] MEDS: LACTULOSE 20GM/30ML SYRUP UDC PO SCH (15:30)
[2024-08-30 17:00] VITALS: BP 146/58; TEMP 98; O2SAT 94
[2024-08-30 21:00] VITALS: BP 142/60; TEMP 98.1; O2SAT 92
[2024-08-31 04:21] VITALS: BP 130/80; TEMP 97.9; O2SAT 95
[2024-08-31 06:06] LABS: BASO % 0.3 % (0.0-1.0); EOS # 0.1 10^3/uL (0.0-0.5); HEMATOCRIT 33.5 % (42.0-52.0); HEMOGLOBIN 11.1 g/dl (13.5-17.5); LYMPH # 1.2 10^3/uL (1.5-5.0); LYMPH % 9.1 % (24.0-44.0); MEAN CORPUSCULAR HEMOGLOBIN 29.4 pg (27.0-33.0); MEAN CORPUSCULAR HGB CONC 33.1 g/dl (32.0-36.5); MEAN CORPUSCULAR VOLUME 88.9 fl (80.0-96.0); MONO % 7.7 % (2.0-8.0); NEUTROPHILS # 10.3 10^3/uL (1.5-8.5); NEUTROPHILS % 81.3 % (36.0-66.0); PLATELET COUNT, AUTOMATED 535 10^3/uL (150-450); RED BLOOD COUNT 3.77 10^6/uL (4.30-6.10); WHITE BLOOD COUNT 12.7 10^3/uL (4.0-10.0)
[2024-08-31 06:43] LABS: C REACTIVE PROTEIN QUANTITATIV 14.32 MG/DL (<1.0); CALCIUM LEVEL 8.3 MG/DL (8.3-10.6); CREATININE FOR GFR 1.63 MG/DL (0.70-1.30); MAGNESIUM LEVEL 2.3 MG/DL (1.8-2.4); POTASSIUM SERUM 5.2 MMOL/L (3.5-5.1)
[2024-08-31 08:00] VITALS: BP 158/88; TEMP 98.1; O2SAT 93
[2024-08-31] MEDS: SOD POLYSTYRENE SULFONATE SUSP 15GM 60ML UD PO ONE (08:54)
[2024-08-31 12:00] VITALS: BP 152/80; TEMP 97.9; O2SAT 95
[2024-08-31 15:19] LABS: CALCIUM LEVEL 8.3 MG/DL (8.3-10.6); CREATININE FOR GFR 1.59 MG/DL (0.70-1.30); GLOMERULAR FILTRATION RATE 46.3 (>49)
[2024-08-31 16:00] VITALS: BP 160/76; TEMP 98.1; O2SAT 96
[2024-08-31 20:39] VITALS: BP 132/76; TEMP 98.1; O2SAT 95
[2024-09-01] VITALS: BP 128/72; TEMP 98.2; O2SAT 93
[2024-09-01 04:31] VITALS: BP 130/68; TEMP 98.1; O2SAT 93
[2024-09-01 06:28] LABS: BASO % 0.4 % (0.0-1.0); EOS # 0.2 10^3/uL (0.0-0.5); HEMATOCRIT 31.9 % (42.0-52.0); HEMOGLOBIN 10.5 g/dl (13.5-17.5); LYMPH # 1.2 10^3/uL (1.5-5.0); LYMPH % 12.2 % (24.0-44.0); MEAN CORPUSCULAR HEMOGLOBIN 29.4 pg (27.0-33.0); MEAN CORPUSCULAR HGB CONC 32.9 g/dl (32.0-36.5); MEAN CORPUSCULAR VOLUME 89.4 fl (80.0-96.0); MONO # 0.8 10^3/uL (0.0-0.8); MONO % 8.5 % (2.0-8.0); NEUTROPHILS # 7.6 10^3/uL (1.5-8.5); NEUTROPHILS % 76.4 % (36.0-66.0); PLATELET COUNT, AUTOMATED 516 10^3/uL (150-450); RED BLOOD COUNT 3.57 10^6/uL (4.30-6.10); WHITE BLOOD COUNT 9.9 10^3/uL (4.0-10.0)
[2024-09-01 06:57] LABS: C REACTIVE PROTEIN QUANTITATIV 9.39 MG/DL (<1.0)
[2024-09-01 06:59] LABS: CALCIUM LEVEL 8.3 MG/DL (8.3-10.6); CREATININE FOR GFR 1.66 MG/DL (0.70-1.30); GLOMERULAR FILTRATION RATE 44.1 (>49); MAGNESIUM LEVEL 2.3 MG/DL (1.8-2.4); POTASSIUM SERUM 4.8 MMOL/L (3.5-5.1)
[2024-09-01] MEDS: TORSEMIDE 20 MG TAB PO ONE (10:44)
[2024-09-01 12:00] VITALS: BP 176/87; TEMP 98.2; O2SAT 96
[2024-09-01 16:00] VITALS: BP 176/88; TEMP 98.2; O2SAT 96
[2024-09-01 20:26] VITALS: BP 144/80; TEMP 98.1
[2024-09-02 04:48] VITALS: BP 148/86; TEMP 97.9; O2SAT 96
[2024-09-02 06:27] LABS: C REACTIVE PROTEIN QUANTITATIV 5.91 MG/DL (<1.0)
[2024-09-02 06:28] LABS: CREATININE FOR GFR 1.54 MG/DL (0.70-1.30); GLOMERULAR FILTRATION RATE 48.1 (>49); POTASSIUM SERUM 5.1 MMOL/L (3.5-5.1)
[2024-09-02 08:00] VITALS: BP 148/72; TEMP 98.2; O2SAT 94
[2024-09-02] MEDS: TORSEMIDE 20 MG TAB PO SCH (08:22)
[2024-09-02] MEDS: TORSEMIDE 20 MG TAB PO ONE (11:47)
[2024-09-02 12:00] VITALS: BP 139/78; TEMP 97.3; O2SAT 95
[2024-09-02 16:00] VITALS: BP 150/76; TEMP 98.1; O2SAT 96
[2024-09-02 20:06] VITALS: BP 146/74; TEMP 98.1; O2SAT 95
[2024-09-02] MEDS: LEVEMIR (INSULIN DETEMIR) 1 UNITS/0.01ML SC SCH (21:18)
[2024-09-02 23:41] VITALS: BP 140/72; TEMP 97.9; O2SAT 94
[2024-09-03 04:02] VITALS: BP 148/72; TEMP 98.1; O2SAT 96
[2024-09-03 06:43] LABS: CALCIUM LEVEL 7.7 MG/DL (8.3-10.6); CREATININE FOR GFR 1.57 MG/DL (0.70-1.30); MAGNESIUM LEVEL 1.8 MG/DL (1.8-2.4); POTASSIUM SERUM 5.1 MMOL/L (3.5-5.1)
[2024-09-03 08:00] VITALS: BP_SYST 146; BP_SYST 154; BP_DIAS 74; BP_DIAS 76; TEMP 97.9; TEMP 98.1; O2SAT 92; O2SAT 94
[2024-09-03] MEDS: TORSEMIDE 20 MG TAB PO SCH ×2 (08:22→21:25)
[2024-09-03 12:00] VITALS: BP 144/82; TEMP 98.1; O2SAT 96
[2024-09-04 05:05] VITALS: BP 148/86; TEMP 98.6; O2SAT 93
[2024-09-04 06:22] LABS: ALBUMIN 1.7 G/DL (3.2-5.2); CALCIUM LEVEL 8.3 MG/DL (8.3-10.6); CREATININE FOR GFR 1.48 MG/DL (0.70-1.30); GLOMERULAR FILTRATION RATE 50.3 (>49); PHOSPHORUS LEVEL 5.8 MG/DL (2.4-5.1); POTASSIUM SERUM 4.9 MMOL/L (3.5-5.1)
[2024-09-04 12:00] VITALS: BP 150/80; TEMP 97.7; O2SAT 96
[2024-09-04 20:30] VITALS: BP 142/62; TEMP 98.3
[2024-09-05 12:00] VITALS: BP 140/78; TEMP 97.7; O2SAT 94
[2024-09-05] MEDS: metOLazone 2.5 MG TAB PO ONE (12:59)
[2024-09-05] MEDS: FERRIC CARBOXYMALTOSE INJ 750 MG, VIAL MATE ADAPTER 1 EACH in NS 100 ML IV ONE (14:35)
[2024-09-05 20:00] VITALS: TEMP 98.1; O2SAT 93
[2024-09-06 04:00] VITALS: BP 150/68; TEMP 96.3; O2SAT 90
[2024-09-06 12:00] VITALS: BP 138/78; TEMP 98.2; O2SAT 93
[2024-09-06 20:00] VITALS: TEMP 98.4; O2SAT 92
[2024-09-07 04:00] VITALS: BP 138/76; TEMP 97; O2SAT 94
[2024-09-07 06:25] LABS: ALBUMIN 1.7 G/DL (3.2-5.2); CALCIUM LEVEL 8.5 MG/DL (8.3-10.6); CREATININE FOR GFR 1.41 MG/DL (0.70-1.30); GLOMERULAR FILTRATION RATE 53.2 (>49); PHOSPHORUS LEVEL 5.6 MG/DL (2.4-5.1); POTASSIUM SERUM 4.1 MMOL/L (3.5-5.1)
[2024-09-07 07:45] VITALS: BP 150/72; TEMP 97.7; O2SAT 91
[2024-09-07 12:00] VITALS: BP 126/80; TEMP 98.1; O2SAT 93
[2024-09-07 20:00] VITALS: BP 140/80; TEMP 98.2; O2SAT 92
[2024-09-08 03:49] VITALS: BP 171/72; TEMP 98.8; O2SAT 88
[2024-09-08 04:00] VITALS: BP 138/65
[2024-09-08] MEDS ORDERED: HYDR25TA87 PO (20:25)
[2024-09-08] MEDS ORDERED: ACET32TAB PO (20:25)
[2024-09-08] MEDS ORDERED: CLOP75TA2 PO (20:25)
[2024-09-08] MEDS ORDERED: MIRA33506 PO (20:25)
[2024-09-08] MEDS ORDERED: ATOR40TA75 PO (20:25)
[2024-09-08] MEDS ORDERED: INSULANT SC (20:25)
[2024-09-08] MEDS ORDERED: MAGN400T2 PO (20:25)
[2024-09-08] MEDS ORDERED: SENN-52 PO (20:25)
[2024-09-08] MEDS ORDERED: TORS20TA2 PO (20:25)
[2024-09-08] MEDS ORDERED: CEFD300CAP PO (20:30)
[2024-09-08] MEDS ORDERED: RISATAB3 PO (20:30)
[2024-09-08] MEDS ORDERED: TRAM50TA2 PO (20:34)
[2024-09-08 21:14] VITALS: BP 130/65; TEMP 98.2; O2SAT 88
[2024-09-08] MEDS: CEFDINIR 300 MG CAP (OMNICEF) PO SCH (21:26)
[2024-09-09] VITALS (8 sets, daily range): BP systolic 112–169; BP diastolic 62–90; TEMP 97–99.4; O2SAT 82–95
[2024-09-09] MEDS: LACTOBACILLUS ACIDOPHILUS CAP (BACID) PO SCH (09:20)
[2024-09-09] MEDS: INSULIN LISPRO (NovoLOG) PER UNIT SC SCH (17:30)
[2024-09-09] MEDS: LEVEMIR (INSULIN DETEMIR) 1 UNITS/0.01ML SC SCH (21:53)
[2024-09-10 04:20] VITALS: BP_SYST 124; BP_SYST 128; BP_SYST 132; BP_DIAS 60; BP_DIAS 64; BP_DIAS 68; TEMP 98.1; O2SAT 92
[2024-09-10 05:48] LABS: BASO # 0.1 10^3/uL (0.0-0.2); BASO % 0.6 % (0.0-1.0); EOS # 0.5 10^3/uL (0.0-0.5); EOS % 5.4 % (0.0-3.0); HEMOGLOBIN 9.1 g/dl (13.5-17.5); LYMPH # 1.5 10^3/uL (1.5-5.0); LYMPH % 16.7 % (24.0-44.0); MEAN CORPUSCULAR HEMOGLOBIN 29.3 pg (27.0-33.0); MEAN CORPUSCULAR HGB CONC 32.5 g/dl (32.0-36.5); MONO % 11.6 % (2.0-8.0); NEUTROPHILS # 5.9 10^3/uL (1.5-8.5); NEUTROPHILS % 65.3 % (36.0-66.0); PLATELET COUNT, AUTOMATED 394 10^3/uL (150-450); RED BLOOD COUNT 3.11 10^6/uL (4.30-6.10)
[2024-09-10 06:15] LABS: ALBUMIN 1.8 G/DL (3.2-5.2); CALCIUM LEVEL 7.7 MG/DL (8.3-10.6); CREATININE FOR GFR 1.45 MG/DL (0.70-1.30); GLOMERULAR FILTRATION RATE 51.5 (>49); MAGNESIUM LEVEL 1.4 MG/DL (1.8-2.4); PHOSPHORUS LEVEL 5.3 MG/DL (2.4-5.1); POTASSIUM SERUM 3.9 MMOL/L (3.5-5.1)
[2024-09-10] MEDS ORDERED: MAG SULF 1GM/100ML (MAG RUN) 1 GM in IV 1 EA IV SCH (08:30)
[2024-09-10] MEDS: MAGNESIUM OXIDE 400MG TAB (MAG-OX) PO SCH (08:40)
[2024-09-10] MEDS: metFORMIN (GLUCOPHAGE) 500MG TAB PO SCH (08:41)
[2024-09-10] MEDS: MAGNESIUM OXIDE 400MG TAB (MAG-OX) PO ONE (11:56)
[2024-09-11 03:00] VITALS: BP_SYST 116; BP_SYST 118; BP_SYST 128; BP_DIAS 72; BP_DIAS 76; BP_DIAS 78; TEMP 98.6; O2SAT 92
[2024-09-11 08:28] VITALS: BP 160/81
== END 2024-09-11 10:21 | disposition home health service (06) | DRG 623 ==
LOC: M ED 15:03 → EDBD 15:03 → M ED INP 21:04 → M MSPAV 22:23
PROVIDERS: ADMIT Family Medicine; ATTEND Internal Medicine
PROC: 0JBQ0ZZ Excision of Right Foot Subcutaneous Tissue and Fascia, Open Approach (ICD-10-PCS; principal; 2024-08-25)
PROC: B246ZZZ Ultrasonography of Right and Left Heart (ICD-10-PCS; 2024-08-27)
PROC: 0QBL0ZZ Excision of Right Tarsal, Open Approach (ICD-10-PCS; 2024-08-31)
DX: E11.621 Type 2 diabetes mellitus with foot ulcer (principal); E87.1 Hypo-osmolality and hyponatremia; M86.8X7 Other osteomyelitis, ankle and foot; J81.1 Chronic pulmonary edema; R78.81 Bacteremia; E11.40 Type 2 diabetes mellitus with diabetic neuropathy, unspecified; E78.5 Hyperlipidemia, unspecified; I12.9 Hypertensive chronic kidney disease with stage 1 through stage 4 chronic kidney disease, or unspecified chronic kidney disease; E11.51 Type 2 diabetes mellitus with diabetic peripheral angiopathy without gangrene; I70.0 Atherosclerosis of aorta; K57.90 Diverticulosis of intestine, part unspecified, without perforation or abscess without bleeding; K20.90 Esophagitis, unspecified without bleeding; E11.65 Type 2 diabetes mellitus with hyperglycemia; N17.9 Acute kidney failure, unspecified; E83.42 Hypomagnesemia; E55.9 Vitamin D deficiency, unspecified; L97.519 Non-pressure chronic ulcer of other part of right foot with unspecified severity; M67.471 Ganglion, right ankle and foot; D50.9 Iron deficiency anemia, unspecified; E66.812 Obesity, class 2; R09.02 Hypoxemia; B95.61 Methicillin susceptible Staphylococcus aureus infection as the cause of diseases classified elsewhere; B95.5 Unspecified streptococcus as the cause of diseases classified elsewhere; E87.5 Hyperkalemia; E11.69 Type 2 diabetes mellitus with other specified complication; R42 Dizziness and giddiness; Z91.040 Latex allergy status; N18.30 Chronic kidney disease, stage 3 unspecified; E11.22 Type 2 diabetes mellitus with diabetic chronic kidney disease; E11.649 Type 2 diabetes mellitus with hypoglycemia without coma; Z68.35 Body mass index [BMI] 35.0-35.9, adult; Z79.899 Other long term (current) drug therapy; Z79.4 Long term (current) use of insulin; R11.2 Nausea with vomiting, unspecified; E87.6 Hypokalemia